=== PATIENT | female | born 1940 | race Caucasian/White ===

== ENCOUNTER → 2017-11-19 | Day surgery (SDC) | payer MEDICARE, OTHER ==
[2017-11-17 11:58] LABS: BASOPHILS # (AUTO) 0.1 (0.0-0.1); BASOPHILS % 1.7 % (0.0-1.0); EOSINOPHILS # (AUTO) 0.1 (0.0-0.4); EOSINOPHILS % 1.7 % (0.0-6.0); HEMATOCRIT 43.7 % (34.2-44.1); HEMOGLOBIN 14.3 g/dL (12.0-16.0); LYMPHOCYTES # (AUTO) 2.2 (1.0-3.2); LYMPHOCYTES % 37.4 % (18.0-39.1); MEAN CORPUSCULAR HEMOGLOBIN 30.8 pg (28-32); MEAN CORPUSCULAR HGB CONC 32.7 g/dL (31-35); MEAN CORPUSCULAR VOLUME 94.2 fL (81-99); MONOCYTES # (AUTO) 0.7 (0.2-0.8); MONOCYTES % 12.3 % (4.4-11.3); NEUTROPHILS # (AUTO) 2.7 (2.1-6.9); NEUTROPHILS % 46.7 % (38.7-80.0); PLATELET COUNT 214 x10e3/uL (140-360); RED BLOOD COUNT 4.64 x10e6/uL (3.6-5.1); RED CELL DISTRIBUTION WIDTH 12.5 % (11.7-14.4)
--- NOTE | 2017-11-17 13:14 | Diagnostic Imaging Report ---
PROCEDURE: X-RAY CHEST, TWO VIEWS COMPARISON: Chest x-ray 05/15/16 INDICATIONS: PRE-OPERATIVE CHEST X-RAY TO REMOVE SYMPTOMATIC HARDWARE FINDINGS: LUNGS: Diffusely hyperinflated consistent with COPD. No mass or infiltrate. PLEURA: No effusions or pneumothorax. HEART \T\ MEDIASTINUM: No cardiomegaly. Calcifications of the aortic arch are stable. BONES \T\ SOFT TISSUES: Diffusely demineralized. No focal osseous or soft tissue abnormalities. CONCLUSION: Stable chest. No active disease. Dictated by: Maryuri Logan M.D. on 11/17/2017 at 13:24 Electronically approved by: Maryuri Logan M.D. on 11/17/2017 at 13:24
[~2017-11-19] MED LIST: BENTYL10 MG PO; CLARITIN10 MG PO; CLINDAMYCIN PHOS 900MG/ D5W 50 50 ML IV ONE; DEXAMETHASONE SOD PHOS INJ 4 MG/ML VIAL ONE; EPHEDRINE SULFATE INJ 50 MG/10 ML SYR ONE; FENTANYL CITRATE/PF 100MCG/2 ML INJ ONE; GABAPENTIN100 MG PO; LIDOCAINE HCL 2% LOCAL INJ 5 ML SDV VIAL INJ ONE; LISINOPRIL PO; LISINOPRIL10 MG PO; LISINOPRIL5 MG PO; NORCO 5-325 TA1 EACH PO; NORVASC5 MG PO; ONDANSETRON HCL INJ 2 MG/ML VIAL ONE; PAXIL PO; PAXIL10 MG PO; PROPOFOL IV EMULSION 10 MG/ML 20 ML VIAL ONE; SEVOFLURANE INHAL SOLN 250 ML PEN BTL ONE; SYNTHROID50 MCG PO; TIZANIDINE HCL4 M1 PO
--- OUTSIDE RECORDS SUMMARY | 2017-11-19 07:26 | XMS REPORT ---
Author Author [facility] Address Unknown Phone Unavailable Care Team Providers Care Note Specialist Name Role Phone IRINA ROMANO Unavailable Unavailable JAROD WOLF Unavailable Unavailable Problems This patient has no known problems. Allergies, Adverse Reactions, Alerts This patient has no known allergies or adverse reactions. Medications This patient has no known medications. Results Test Description Test Time Test Comments Text Results Atomic Results Result Comments CHEST 2 VIEWS [place] [address] Patient Name: GEOVANNA HERNANDEZ MR #: [id number] : 1940 Age/Sex: 77/F Req #: [id number] [facility] Physician: Ordered by: IRINA ROMANO MD Report #: [id number] Location: OR Room/Bed: Procedure: [id number] DX/CHEST 2 VIEWS Exam Date: 11/17/17 Exam Time: 1205 REPORT STATUS: Signed PROCEDURE: X-RAY CHEST, TWO VIEWS COMPARISON: Chest x-ray 05/15/16 INDICATIONS: PRE-OPERATIVE CHEST X-RAY TO REMOVE SYMPTOMATIC HARDWARE FINDINGS: LUNGS: Diffusely hyperinflated consistent with COPD. No mass or infiltrate. PLEURA: No effusions or pneumothorax. HEART T MEDIASTINUM: No cardiomegaly. Calcifications of the aortic arch are stable. BONES T SOFT TISSUES : Diffusely demineralized. No focal osseous or soft tissue abnormalities. CONCLUSION: Stable chest. No active disease. Dictated by : Maribel Logan M.D. on 11/17/2017 at 13:24 Electronically approved by : Maribel Logan M.D. on 11/17/2017 at 13:24 Dictated By: MARIBEL LOGAN MD [id number] COPY TO: IRINA ROMANO MD WRIST COMPLETE RIGHT [place] [address] Patient Name: GEOVANNA HERNANDEZ MR #: [id number] : 1940 Age/Sex: 77/F Req #: [id number] Adm Physician: JAROD WOLF MD Ordered by: IRINA ROMANO MD Report #: [id number] Location: MED/SURG Room/Bed: [facility] Procedure: [id number] DX/WRIST COMPLETE RIGHT Exam Date: 09/03/17 Exam Time: 1300 REPORT STATUS: Signed PROCEDURE: X-RAY RIGHT WRIST, COMPLETE COMPARISON: [facility], DX, WRIST COMPLETE RIGHT, 09/02/2017, 13:30. INDICATIONS: POST OP RIGHT WRIST SURGERY FINDINGS: Status post ORIF of the previously described distal radial fracture with plate and screw construct. There is also a transfixing K wire. Improved alignment. The hardware is adequate in position. Overlying plaster cast. Generalized osteopenia. CONCLUSION: Status post ORIF of the present described is the distal right radial fracture with intact hardware and improved alignment. Mat Carrera M.D. Dictated by: Mat Carrera M.D. on 09/03/2017 at 13:32 Electronically approved by: Mat Carrera M.D. on 09/03/2017 at 13:32 Dictated By: SHARLENE CARRERA MD, MD 31 COPY TO: IRINA ROMANO MD WRIST COMPLETE RIGHT [place] [address] Patient Name: GEOVANNA HERNANDEZ MR #: [id number] : 1940 Age/Sex: 77/F Req #: [id number] Adm Physician: Ordered by: MORELIA KINGSLEY Report #: [id number] Location: ER Room/Bed: Procedure: [id number] DX/WRIST COMPLETE RIGHT Exam Date: 09/02/17 Exam Time: 1340 REPORT STATUS: Signed PROCEDURE: X-RAY RIGHT WRIST, COMPLETE COMPARISON: None. INDICATIONS: FALL FINDINGS: There is buckling of the lateral cortex of the distal radial metaphysis with a volar step off along the distal radial metaphyseal cortex as seen on the lateral radiograph. No definite intra-articular extension. The ulna appears intact. Subchondral cystic changes of the scaphoid. Advanced degenerative changes throughout the carpus, most notably at the first carpometacarpal joint. Appropriate alignment between the distal radius , lunate, and capitate is maintained on the lateral radiograph. Mild soft tissue swelling. Diffuse osteopenia. CONCLUSION: Acute minimally displaced transverse distal radial metaphyseal fracture with overlying soft tissue swelling. Dictated by: Josh Collins M.D. on 09/02/2017 at 14:20 Electronically approved by: Josh Collins M.D. on 09/02/2017 at 14:20 Dictated By: JOSH COLLINS MD 19 Transcribed By: ZANDER on 09/02/171419 COPY TO: MORELIA KINGSLEY HIP RIGHT 2-3 VW (+/- PELVIS) [place] [address] Patient Name: GEOVANNA HERNANDEZ MR #: [id number] : 1940 Age/Sex: 77/F Req #: [id number] Adm Physician: Ordered by: MORELIA KINGSLEY Report #: [id number] Location: ER Room/Bed: Procedure: [id number] DX/HIP RIGHT 2-3 VW (+/- PELVIS) Exam Date: Exam Time: REPORT STATUS: Signed PROCEDURE: HIP RIGHT 2-3 VW (+/- PELVIS) COMPARISON: None. INDICATIONS: FALL FINDINGS: Intact surgical screws traverse the right intertrochanteric proximal femur, femoral neck, and femoral head. No evidence of hardware loosening or failure. Acute, minimally displaced fractures of the right superior and inferior pubic rami, adjacent to the symphysis pubis. Pubic symphysis is otherwise intact. Atherosclerotic vascular calcifications. CONCLUSION: intact surgical hardware related to operative fixation of a remote right femoral neck fracture. Acute minimally displaced fractures of the right superior and inferior pubic rami, with intact symphysis pubis. Dictated by: Josh Collins M.D. on 09/02/2017 at 14:25 Electronically approved by: Josh Collins M.D. on 09/02/2017 at 14:25 Dictated By: JOSH COLLINS MD 24 Transcribed By: ZANDER on 09/02/171424 COPY TO: MORELIA KINGSLEY
--- OUTSIDE RECORDS SUMMARY | 2017-11-19 07:26 | XMS REPORT | Clinical Summary ---
Author Author [facility] Address Unknown Phone Unavailable Care Team Providers Care Lumite Injector Name Role Phone Jeff Barker MD PCP Allergies No Known Allergies Current Medications Prescription Sig. Disp. Refills Start End Date Status Date amLODIPine (NORVASC) 5 mg Take 5 mg by mouth daily. Active tablet lisinopril Take 1 tablet (10 mg 30 tablet 0 09/26/20 Active (PRINIVIL,ZESTRIL) 10 mg total) by mouth daily for 17 tablet 30 days. acetaminophen-codeine Take 1 tablet by mouth 60 tablet 0 09/25/20 (TYLENOL WITH CODEINE #3) every 6 (six) hours as 17 18 300-30 mg per tablet needed for moderate pain for up to 29 days. levothyroxine (SYNTHROID, Take 1 tablet (25 mcg 30 tablet 0 09/26/20 10/26/19 LEVOXYL) 25 mcg tablet total) by mouth daily for 17 18 30 days. nicotine (NICODERM CQ) 14 Place 1 patch on the skin 14 patch 0 10/09/19 mg/24 hr daily for 14 days. 17 18 nicotine (NICODERM CQ) 7 Place 1 patch on the skin 7 patch 0 10/10/19 10/17/19 mg/24 hr daily for 7 days. 18 18 PARoxetine (PAXIL) 20 MG Take 1 tablet (20 mg 30 tablet 0 09/26/20 10/26/19 tablet total) by mouth daily for 17 18 30 days. zinc oxide-cod liver oil Apply topically 2 (two) 09/25/20 10/25/19 (DESITIN) 40 % paste times a day for 30 days. 17 18 Active Problems Problem Noted Date Pelvic fracture 09/17/2017 Right wrist fracture 09/16/2017 Encounters Date Type Specialty Care Team Description 11/13/2017 Telephone Physical Therapy Silvio Mckenzie MD 10/16/2017 Transcribe Physical Therapy Silvio Mckenzie MD Right wrist fracture, Orders closed, initial encounter (Primary Dx) 09/16/2017 Hospital Rehabilitation Arnulfo Banda MD Closed fracture of right - Encounter wrist with routine 09/25/2017 healing, subsequent encounter (Primary Dx) after 11/18/2016 Family History Medical History Relation Name Comments Diabetes Father Cancer Mother Relation Name Status Comments Father Mother Social History Tobacco Use Types Packs/Day Years Used Date Current Every Day Smoker Cigarettes 1 Smokeless Tobacco: Never Used Tobacco Cessation: Ready to Quit: Yes; Counseling Given: Yes Alcohol Use Drinks/Week oz/Week Comments Yes 14 Glasses of 8.4 wine Sex Assigned at Date Recorded Not on file Last Filed Vital Signs Vital Sign Reading Time Taken Blood Pressure 130/67 09/25/2017 7:07 AM TAPE MAKING MACHINE OPERATOR Pulse 67 09/25/2017 7:07 AM TAPE MAKING MACHINE OPERATOR Temperature 37.4 C (99.3 F) 09/25/2017 7:07 AM TAPE MAKING MACHINE OPERATOR Respiratory Rate 17 09/25/2017 7:07 AM TAPE MAKING MACHINE OPERATOR Oxygen Saturation 94% 09/25/2017 7:07 AM TAPE MAKING MACHINE OPERATOR Inhaled Oxygen - - Concentration Weight 47.2 kg (104 lb) 09/16/2017 3:56 PM TAPE MAKING MACHINE OPERATOR Height 162.6 cm (5' 4") 09/16/2017 3:56 PM TAPE MAKING MACHINE OPERATOR Body Mass Index 17.85 09/16/2017 3:56 PM TAPE MAKING MACHINE OPERATOR Plan of Treatment Health Maintenance Due Date Last Done Comments ZOSTER VACCINE 2001 PNEUMOCOCCAL 2006 POLYSACCHARIDE VACCINE AGE 65 AND OVER PNEUMOCOCCAL-13 2006 INFLUENZA VACCINE 05/06/2017 Results * Estimated GFR (09/24/2017 5:44 AM) Only the most recent of 4 results within the time period is included. Component Value Ref Range GFR Non Af Amer >90 mL/min/1.73 m2 GFR Af Amer >90 mL/min/1.73 m2 Comment: Chronic kidney disease: <60 mL/min/1.73m2 Kidney failure: <15 mL/min/1.73m2 The estimated GFR is calculated from the IDMS-traceable Modification of Diet in Renal Disease Equation. The accuracy of the calculation is poor when the creatinine is normal. Calculated values >90 mL/min/1.73m2 are not reported. This equation has not been validated in children (<18 years), women, the elderly (>70 years), or ethnic groups other than Caucasians and Americans. Specimen Performing Laboratory Plasma specimen [facility] DEPARTMENT OF PATHOLOGY AND GENOMIC MEDICINE [address] [place] [address] [place] [address] * CBC with platelet and differential (09/24/2017 5:44 AM) Only the most recent of 3 results within the time period is included. Component Value Ref Range WBC 2.8 (L) 4.2 - 11.0 k/uL RBC 3.69 (L) 4.04 - 5.86 m/uL HGB 11.9 11.5 - 15.3 g/dL HCT 36.0 34.0 - 45.0 % MCV 97.6 80.0 - 98.0 fL MCH 32.2 27.0 - 34.0 pg MCHC 33.1 31.5 - 36.5 g/dL RDW - SD 42.5 37.0 - 51.0 fL MPV 8.9 7.4 - 10.4 fL Platelet count 118 (L) 150 - 400 k/uL Nucleated RBC 0.00 /100 WBC Neutrophils 36.6 36.0 - 66.0 % Lymphocytes 36.6 24.0 - 44.0 % Monocytes 17.0 (H) 0.0 - 6.0 % Eosinophils 6.9 (H) 0.0 - 6.0 % Basophils 2.5 (H) 0.0 - 1.2 % Immature granulocytes 0.4 0.0 - 1.0 % Specimen Performing Laboratory Blood [facility] DEPARTMENT OF PATHOLOGY AND [place] [facility] [address] [place] [address] [place] [address] * Hepatic function panel (09/24/2017 5:44 AM) Only the most recent of 4 results within the time period is included. Component Value Ref Range Albumin 2.8 (L) 3.2 - 5.0 g/dL Total bilirubin 0.3 0.2 - 1.2 mg/dL Bilirubin direct 0.1 0.0 - 0.4 mg/dL Alkaline phosphatase 161 (H) 30 - 120 U/L Protein 7.5 6.3 - 8.2 g/dL ALT 54 30 - 65 U/L AST 43 (H) 15 - 37 U/L Specimen Performing Laboratory Plasma specimen [facility] DEPARTMENT OF PATHOLOGY AND GENOMIC MEDICINE [address] [place] [address] * Basic metabolic panel (09/24/2017 5:44 AM) Only the most recent of 4 results within the time period is included. Component Value Ref Range Sodium 134 (L) 135 - 150 mEq/L Potassium 3.8 3.5 - 5.0 mEq/L Chloride 97 (L) 100 - 109 mEq/L CO2 30 24 - 32 mmol/L Anion gap 7 7 - 15 mEq/L Comment: Starting from January , anion gap calculation no longer incorporates potassium. Please note the change. BUN 5 (L) 7 - 18 mg/dL Creatinine 0.4 (L) 0.8 - 1.5 mg/dL Glucose 72 65 - 100 mg/dL Calcium 8.7 8.6 - 10.7 mg/dL Specimen Performing Laboratory Plasma specimen [facility] DEPARTMENT OF PATHOLOGY AND GENOMIC MEDICINE [address] [place] [address] * Hepatitis acute panel (09/19/2017 5:34 AM) Component Value Ref Range Hepatitis A IgM Non-reactive Non-reactive Hepatitis B core IgM Non-reactive Non-reactive Hepatitis B surface Ag Non-reactive Non-reactive Hepatitis C Ab Non-reactive Non-reactive Specimen Performing Laboratory Serum [facility] DEPARTMENT OF PATHOLOGY AND GENOMIC MEDICINE [address] [place] [address] * T3, free (09/17/2017 5:32 AM) Component Value Ref Range T3, free 2.57 2.18 - 3.98 pmol/L Specimen Performing Laboratory Plasma specimen [facility] DEPARTMENT OF PATHOLOGY AND GENOMIC MEDICINE [address] [place] [address] * Thyroid stimulating hormone (09/17/2017 5:32 AM) Component Value Ref Range TSH 11.00 (H) 0.38 - 4.82 uIU/mL Specimen Performing Laboratory Plasma specimen [facility] DEPARTMENT OF PATHOLOGY AND GENOMIC MEDICINE [address] [place] [address] * T4, free (09/17/2017 5:32 AM) Component Value Ref Range T4, free 1.07 0.70 - 1.61 ng/dL Specimen Performing Laboratory Plasma specimen [facility] DEPARTMENT OF PATHOLOGY AND GENOMIC MEDICINE [address] [place] [address] after 11/18/2016 Insurance Payer Benefit Subscriber ID Type Phone Address Plan / Group [employer] xxxxxxxxxx Commercial [employer] MEDICARE xxxxxxxxxxx Medicare [place], [place] PART A AND B
--- NOTE | 2017-11-20 10:02 | Operative Report ---
DATE OF PROCEDURE: November 19, 2017 PREOPERATIVE DIAGNOSIS: Symptomatic hardware, right hip. POSTOPERATIVE DIAGNOSIS: Symptomatic hardware, right hip. OPERATION/PROCEDURE PERFORMED: The patient underwent a removal of symptomatic hardware from the right hip. CAR SHUNTER: Yuliya Thompson ANESTHESIA: General endotracheal intubation anesthesia. IV FLUIDS: Per anesthesia record. BRIEF DESCRIPTION OF THE PATIENT'S OPERATIVE PROCEDURE: Ms. Lockett was taken to the operating room and placed in the supine position on the fracture table. Following induction of general anesthesia, as well as endotracheal intubation, the patient's right lower extremity was examined under anesthesia. She was found to have a normal appearing right lower extremity. There was a well-healed incision over the right hip. The patient's right lower extremity was placed in a well-padded longitudinal traction, and the left lower extremity was placed in a well-padded lithotomy position. Fluoroscopic evaluation the patient's hip joint demonstrated a slightly shortened femoral neck, and 2 screws consistent with a previous pinning of a femoral neck fracture. The patient's lower extremity was prepped draped in a standard surgical fashion. An incision was created on the lateral aspect of the hip. This incision was carried through the skin only. Blunt dissection was used to deepen the incision, and the heads of the screws were found in the subcutaneous tissues beneath the tensor fascia roshni. The 2 screws were removed without difficulty. The wound was copiously irrigated. There was no sign for infection. The patient's leg was then manipulated under anesthesia, and the head was found to mobilize with the neck. The patient's wound was copiously irrigated. It was closed in a multilayer fashion. Sterile dressings were applied. The patient was then awakened and taken to the postanesthesia care unit in stable condition. Yuliya Thompson acted as pastrycook's assistant for this case, and was necessary for both prepping and draping the patient, as well as retraction of soft tissues to allow this case to be successful. Job#: [id number] KATJA
== END | disposition home or self-care (01) ==
LOC: OR 07:23
PROVIDERS: ATTEND Specialist
DX: Z45.89 Encounter for adjustment and management of other implanted devices (principal); I10 Essential (primary) hypertension; E03.9 Hypothyroidism, unspecified; F32.9 Major depressive disorder, single episode, unspecified; F17.210 Nicotine dependence, cigarettes, uncomplicated; Z01.812 Encounter for preprocedural laboratory examination; Z01.818 Encounter for other preprocedural examination
CPT/HCPCS: 20680; 36415; 71046; 76000; 85025; J1100; J2001; J2405

== ENCOUNTER 2019-01-29 11:56 | Inpatient (IN) | payer MEDICARE, OTHER ==
[~2019-01-29] VITALS: Ht 162.6 cm; Wt 44.9 kg
[~2019-01-29 11:56] MED LIST changes: -CLINDAMYCIN PHOS 900MG/ D5W 50 50 ML IV ONE; -DEXAMETHASONE SOD PHOS INJ 4 MG/ML VIAL ONE; -EPHEDRINE SULFATE INJ 50 MG/10 ML SYR ONE; -FENTANYL CITRATE/PF 100MCG/2 ML INJ ONE; -LIDOCAINE HCL 2% LOCAL INJ 5 ML SDV VIAL INJ ONE; -ONDANSETRON HCL INJ 2 MG/ML VIAL ONE; -PROPOFOL IV EMULSION 10 MG/ML 20 ML VIAL ONE; -SEVOFLURANE INHAL SOLN 250 ML PEN BTL ONE
--- OUTSIDE RECORDS SUMMARY | 2019-01-29 12:00 | XMS REPORT | Clinical Summary ---
Author Author [facility] Organization [facility] Address Unknown Phone Unavailable Care Team Providers Care Morgue Keeper Name Role Phone Asad Barker MD PCP Allergies No Known Allergies Medications End Date Status Medication Sig Dispensed Refills Start Date Active amLODIPine (NORVASC) 5 mg Take 5 mg by 0 tablet mouth daily. Active lisinopril Take 1 tablet 30 tablet 0 (PRINIVIL,ZESTRIL) 10 mg (10 mg total) 7 tablet by mouth daily for 30 days. Active Problems Problem Noted Date Pelvic fracture 09/17/2017 Right wrist fracture 09/16/2017 Family History Medical History Relation Name Comments Diabetes Father Cancer Mother Relation Name Status Comments Father Mother Social History Date Tobacco Use Types Packs/Day Years Used Current Every Day Smoker Cigarettes 1 Smokeless Tobacco: Never Used Tobacco Cessation: Ready to Quit: Yes; Counseling Given: Yes Alcohol Use Drinks/Week oz/Week Comments Yes 14 Glasses of 8.4 wine Sex Assigned at Date Recorded Not on file Industry Job Start Date Occupation Not on file Not on file Not on file Travel End Travel History Travel Start No recent travel history available. Last Filed Vital Signs Not on file Plan of Treatment Health Maintenance Due Date Last Done Comments SHINGLES VACCINES (#1) 1991 65+ PNEUMOCOCCAL VACCINE 2006 (1 of 2 - PCV13) PNEUMOCOCCAL 2006 POLYSACCHARIDE VACCINE AGE 65 AND OVER INFLUENZA VACCINE 05/06/2019 Results Not on fileafter 01/28/2018 Insurance Payer Benefit Subscriber ID Type Phone Address Plan / Group [employer] xxxxxxxxxx Commercial [employer] MEDICARE xxxxxxxxxxx Medicare [place], [place] PART A AND B Advance Directives Patient has advance care planning documents on file. For more information, raheem e contact: Jayjay De La O [address] [place] [address]
--- OUTSIDE RECORDS SUMMARY | 2019-01-29 12:00 | XMS REPORT | Clinical Summary ---
Author Author [facility] Organization [facility] Address Unknown Phone Unavailable Care Team Providers Care Ornamental Ironworker Name Role Phone Maya Urban MD PCP Allergies No Known Allergies Medications End Date Status Medication Sig Dispensed Refills Start Date Active atenolol (TENORMIN) 100 1 tablet 0 mg tablet daily. 9 Active levothyroxine (SYNTHROID) 1 tablet 0 25 mcg tablet daily. 9 Active lisinopril (PRINIVIL, 1 tablet 0 ZESTRIL) 40 mg tablet daily. 9 Active PARoxetine (PAXIL) 20 mg 1 tablet 0 tablet daily. 9 Active clindamycin (CLEOCIN) 300 Take 300 mg 0 mg capsule by mouth 4 times daily. Active acetaminophen-codeine Take 1 tablet 15 tablet 0 (TYLENOL/CODEINE #3) by mouth 3 9 300-30 mg per times daily tabletIndications: as needed for Staphylococcal infection Pain. Active mupirocin (BACTROBAN) 2 % Apply to nose 22 g 0 ointmentIndications: 2 times daily 9 Staphylococcal infection for one week. 02/06/2019 Active amoxicillin-clavulanate Take 1 tablet 20 tablet 0 (AUGMENTIN) 875-125 mg by mouth 2 9 per tabletIndications: times daily Ulcers of both lower legs for 10 days. 02/06/2019 Active ciprofloxacin HCl (CIPRO) Take 1 tablet 20 tablet 0 500 mg tabletIndications: by mouth 2 9 Ulcers of both lower legs times daily for 10 days. Active acetaminophen-codeine Take 1 tablet 60 tablet 1 (TYLENOL/CODEINE #3) by mouth 3 9 300-30 mg per times daily tabletIndications: Ulcers as needed for of both lower legs Pain. 12/28/2018 clindamycin (CLEOCIN HCL) Take 1 40 capsule 0 300 mg capsule by 9 capsuleIndications: mouth 4 times Staphylococcal infection daily for 10 days. 01/01/2019 chlorhexidine gluconate Apply 1 120 mL 0 (HIBICLENS) 4 % external Bottle to 9 liquidIndications: affected area Staphylococcal infection daily as needed for up to 14 days for Pain. 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 Office Visit Family Practice 12/18/2018 Travel after 01/28/2018 Immunizations Name Dates Previously Given Next Due Influenza, 12/18/2018 Vaccine<FLUCELVAX>(Multi- Dose) PCV 13 (Pnuemococcal 12/18/2018 Conjugated 13 Valent) Tdap (Tetanus Toxoid, 12/18/2018 (Deferred: Unavailable-Patient to Reduced Diphtheria Toxoid return for vaccine later) And Acellular Pertussis, Absorbed) Zoster Vaccine (Shingrix) 12/30/2018 (Deferred: Vaccine Unavailable) Family History Medical History Relation Name Comments Diabetes Father Cancer Mother Relation Name Status Comments Father Mother Social History Date Tobacco Use Types Packs/Day Years Used Current Every Day Smoker Cigarettes 0.5 40 Smokeless Tobacco: Never Used Tobacco Cessation: Ready to Quit: No; Counseling Given: Yes Alcohol Use Drinks/Week oz/Week Comments Yes occasionally Sex Assigned at Date Recorded Not on file Industry Job Start Date Occupation Not on file Not on file Not on file Travel End Travel History Travel Start No recent travel history available. Last Filed Vital Signs Time Taken Vital Sign Reading 01/27/2019 2:22 PM CDT Blood Pressure 162/84 01/27/2019 2:09 PM CDT Pulse 73 01/27/2019 2:09 PM CDT Temperature 36.9 C (98.5 F) 01/27/2019 2:09 PM CDT Respiratory Rate 16 - Oxygen Saturation - - Inhaled Oxygen - Concentration 01/27/2019 2:09 PM CDT Weight 44.9 kg (99 lb) 01/27/2019 2:09 PM CDT Height 163.8 cm (5' 4.5") 01/27/2019 2:09 PM CDT Body Mass Index 16.73 Plan of Treatment Care Team Description Date Type Specialty Maya Urban MD [address] [address] [phone] JAVIER 02/19/2019 Appointment Vascular Surgery Health Maintenance Due Date Last Done Comments IMM Pneumococcal Age 65 2006 and Up IMM Influenza Seasonal 07/06/2019 12/18/2018 Oct to December (>/=19 yrs) Procedures Comments Procedure Name Priority Date/Time Associated Diagnosis ABSCESS STAIN / CULTURE Routine 12/18/2018 Staphylococcal infection 11:04 AM CDT CBC/DIFF STAT 12/18/2018 History of ITP 10:52 AM CDT after 01/28/2018 Results * ABSCESS STAIN / CULTURE (12/18/2018 11:04 AM CDT) Spec Right ankle [facility] Description Order Comments None [facility] Gram Stain 1+ WBC's seen BT MICROBIOLOGY 2+ Gram positive cocci in clusters Culture 4+ Stenotrophomonas BT MICROBIOLOGY maltophilia 4+ Gr.D Enterococcus 4+ Coagulase negative Staphylococcus, no susceptibility performed Report Status Final 12/29/2018 BT MICROBIOLOGY Organism 4+ Stenotrophomonas BT MICROBIOLOGY maltophilia Method [facility] Ceftazidime 8 Susceptible BT MICROBIOLOGY Trimeth-sulfame <=0.5/9.5 Susceptible BT MICROBIOLOGY thox Levofloxacin 2 Susceptible BT MICROBIOLOGY Organism 4+ Gr.D Enterococcus BT MICROBIOLOGY Method [facility] Ampicillin 1 Susceptible BT MICROBIOLOGY Vancomycin 1 Susceptible BT MICROBIOLOGY Gentamicin <=500 Susceptible [facility] Synergy Streptomycin >1000 Resistant BT MICROBIOLOGY Synergy Tetracycline >8 Resistant BT MICROBIOLOGY Specimen Wound abscess - ANKLE RIGHT Performing Organization Address City/State/Zipcode Phone Number [facility]CRO[facility] * CBC/DIFF (12/18/2018 10:52 AM CDT) WBC 4.5 4.5 - 11.0 K/uL [facility] RBC 4.55 4.20 - 5.40 M/uL [facility] Hemoglobin 14.7 12.0 - 16.0 g/dL [facility] Hematocrit 44.2 37.0 - 47.0 % [facility] MCV 97 (H) 82 - 92 fL [facility] MCH 32.3 (H) 27.0 - 32.0 pg [facility] MCHC 33.3 32.0 - 36.0 g/dL [facility] RDW 45.9 36.4 - 46.3 fL [facility] Platelet 177 150 - 400 K/uL [facility] Neutrophil 45.6 34.0 - 70.0 % [facility] Lymphocyte 34.7 20.0 - 50.0 % [facility] Monocyte 15.9 (H) 5.0 - 12.0 % [facility] Eosinophil 1.8 0.7 - 5.0 % [facility] Basophil 2.0 (H) 0.1 - 1.2 % [facility] Neutrophil, Abs 2.06 1.56 - 6.13 K/uL [facility] Lymphocyte, Abs 1.57 1.18 - 3.74 K/uL [facility] Monocyte, Abs 0.72 (H) 0.24 - 0.36 K/uL [facility] Eosinophil, Abs 0.08 0.04 - 0.36 K/uL [facility] Basophil, Abs 0.09 (H) 0.01 - 0.08 K/uL [facility] Specimen Blood Performing Organization Address City/State/Zipcode Phone Number [facility] after 01/28/2018 Insurance Type Payer Benefit Subscriber ID Effective Phone Address Plan / Dates Group [employer] HMO [employer] xxxxxxxxx 2018-P [phone] [address] [address] [place] [address]
[2019-01-29] MEDS ORDERED: ONDANSETRON HCL INJ 2MG/ML 2ML 2 MG/ML VIAL IV STA (12:20)
[2019-01-29] MEDS ORDERED: SODIUM CHLORIDE 0.9% 1000ML 1,000 ML IV STA (12:20)
[2019-01-29] MEDS ORDERED: VANCOMYCIN 1GM/NS 250 ML 250 ML IV ONE (12:30)
[2019-01-29] MEDS ORDERED: ASPIRIN 81 MG CHEW TAB PO ONE (12:30)
[2019-01-29] MEDS ORDERED: PIPER-TAZ 3.375 GM 50 ML IV ONE (12:30)
--- NOTE | 2019-01-29 12:33 | NUR ---
H&P cc: infection of legs HPI: 78yoF, PCP , developed infection of left leg, given amoxicillin in outpt setting, but persistent symptoms, here for mgmt. Pt states started in December after spider bite; SHe continues to smoke 1ppd cigs; had 2 separate rounds of oral antibiotics, consisting of bactrim and other antibiotics. PMH: pelvic fx, right radial fx; HTN, ITP, cigarette use, mood d/o PShx: right hip Allergies see emr Fh/Sh; Meds; see MAR ROS:no cp/sob/f/c/s/N/V/D/MONIQUE/vision changes/back pain/MONIQUE v/s; rev'd PE: tired appearing anicteric ns1s2 mod bs soft nt nd LEFT LOWER FORELEG WITH 4 DISCRETE ULCERS RANGING FROM 1 INCH TO 2 OR 3 INCHES; NO ODOR; DP 1+ B/L; ext minimally cool; skin dry flat affect a&ox3; solomon labs/med; rev'd A/P: 78yoF Cellulitis of left foreleg Left leg Ulcers Cig use HTN urgency Underweight state BMI 17 ITP Mood d/o Hypothyroidism Neuropathy PLAN 1.f/u labs 2.prealbumin level 3.IV abx 4.Consult wound care- 5.Consult Cardio for vascular w-up 6.Told pt it is critical to quit cigs now; start nicotine patch Prop: pepcid; DVT prop pending labs Dispo; f/u labs; f/u consults; Pop Kamara MD, PhD.
[2019-01-29] MEDS ORDERED: SODIUM CHLORIDE 0.9% 1000ML 1,000 ML IV ONE (12:45)
[2019-01-29] MEDS ORDERED: MORPHINE SULFATE 2 MG/ML SYR 1ML IV PRN (12:45)
--- NOTE | 2019-01-29 13:12 | NUR ---
DR MARTINEZ IN ROOM WITH PT
[2019-01-29] MEDS ORDERED: MORPHINE SULFATE INJ 4 MG/ML INJ 1ML IV PRN (13:15)
--- OUTSIDE RECORDS SUMMARY | 2019-01-29 13:27 | XMS REPORT | Clinical Summary ---
Author Author [facility] Organization [facility] Address Unknown Phone Unavailable Care Team Providers Care Sales Porter Name Role Phone Asad Barker MD PCP [...] xxxxxxxxxx Commercial [employer] MEDICARE xxxxxxxxxxx Medicare [place], [place] PART A AND B Advance Directives Patient has advance care planning documents on file. For more information, raheem e contact: Jayjay De La O [address] [place] [address]
--- OUTSIDE RECORDS SUMMARY | 2019-01-29 13:27 | XMS REPORT | Clinical Summary ---
Author Author [facility] Organization [facility] Address Unknown Phone Unavailable Care Team Providers Care Title I Assistant Name Role Phone Maya Urban MD PCP [...] Date Type Specialty Maya Urban MD [address] [address] [phone] JAVIER 02/19/2019 Appointment Vascular Surgery Health Maintenance [...] (12/18/2018 11:04 AM CDT) Spec Right ankle [facility] Description Order Comments None [facility] Gram Stain 1+ WBC's seen BT [...] Performing Organization Address City/State/Zipcode Phone Number [facility] BT MICROBIOLOGY * CBC/DIFF (12/18/2018 10:52 AM CDT) WBC 4.5 4.5 - 11.0 K/uL [facility] RBC 4.55 4.20 - 5.40 M/uL [facility] Hemoglobin 14.7 12.0 - 16.0 g/dL [facility] Hematocrit 44.2 37.0 - 47.0 % [facility] MCV 97 (H) 82 - 92 fL [facility] MCH 32.3 (H) 27.0 - 32.0 pg [facility] MCHC 33.3 32.0 - 36.0 g/dL [facility] RDW 45.9 36.4 - 46.3 fL [facility] Platelet 177 150 - 400 K/uL [facility] Neutrophil 45.6 34.0 - 70.0 % [facility] Lymphocyte 34.7 20.0 - 50.0 % [facility] Monocyte 15.9 (H) 5.0 - 12.0 % [facility] Eosinophil 1.8 0.7 - 5.0 % [facility] Basophil 2.0 (H) 0.1 - 1.2 % [facility] Neutrophil, Abs 2.06 1.56 - 6.13 K/uL [facility] Lymphocyte, Abs 1.57 1.18 - 3.74 K/uL [facility] Monocyte, Abs 0.72 (H) 0.24 - 0.36 K/uL [facility] Eosinophil, Abs 0.08 0.04 - 0.36 K/uL [facility] Basophil, Abs 0.09 (H) 0.01 - 0.08 K/uL [facility] Specimen Blood Performing Organization Address City/State/Zipcode Phone Number [facility] after 01/28/2018 Insurance Type Payer Benefit Subscriber ID Effective Phone Address Plan / Dates Group [employer] HMO [employer] xxxxxxxxx 2018-P [phone] [address] [address] [place] [address]
[2019-01-29 13:38] LABS: BASOPHILS # (AUTO) 0.1 (0.0-0.1); BASOPHILS % 1.1 % (0.0-1.0); EOSINOPHILS # (AUTO) 0.1 (0.0-0.4); EOSINOPHILS % 1.8 % (0.0-6.0); HEMATOCRIT 42.5 % (34.2-44.1); HEMOGLOBIN 14.6 g/dL (12.0-16.0); LYMPHOCYTES # (AUTO) 1.3 (1.0-3.2); LYMPHOCYTES % 20.9 % (18.0-39.1); MEAN CORPUSCULAR HEMOGLOBIN 32.8 pg (28-32); MEAN CORPUSCULAR HGB CONC 34.4 g/dL (31-35); MEAN CORPUSCULAR VOLUME 95.5 fL (81-99); MONOCYTES % 15.6 % (4.4-11.3); NEUTROPHILS # (AUTO) 3.7 (2.1-6.9); NEUTROPHILS % 60.3 % (38.7-80.0); PLATELET COUNT 204 x10e3/uL (140-360); RED BLOOD COUNT 4.45 x10e6/uL (3.6-5.1); RED CELL DISTRIBUTION WIDTH 13.3 % (11.7-14.4)
--- NOTE | 2019-01-29 13:40 | Diagnostic Imaging Report ---
EXAM: CHEST SINGLE (PORTABLE), AP Portable DATE: 01/29/2019 Time stamp on exam: 12:36 PM INDICATION: Lower extremity cellulitis and ulcers COMPARISON: None FINDINGS: LINES/TUBES: None LUNGS: No consolidations or edema. Lungs are hyperexpanded. Possible right upper lobe pulmonary nodule. CT scan recommended for further evaluation. PLEURA: No effusions or pneumothorax. HEART AND MEDIASTINUM: Normal size and contour. BONES AND SOFT TISSUES: Old right-sided rib fractures. IMPRESSION: Hyperexpansion lung castillo with likely a solitary pulmonary nodule in the right upper lobe. Signed by: Dr. Rell Ireland DO on 01/29/2019 1:36 PM
--- NOTE | 2019-01-29 13:44 | Diagnostic Imaging Report ---
Exam: Left leg 2 views History: Pain Comparison: None. Findings: No fracture or malalignment. Joint spaces preserved. Vascular calcifications. Soft tissue irregularity along the lateral aspect. Impression: No acute osseous abnormality or radiographic osteomyelitis Soft tissue irregularity lateral aspect of the mid to lower calf Soft tissue edema Signed by: Dr. Wale Quijano M.D. on 01/29/2019 1:41 PM
[2019-01-29 13:47] LABS: CLARITY,URINE CLEAR (CLEAR); COLOR,URINE YELLOW (YELLOW)
[2019-01-29 13:48] LABS: BILIRUBIN,URINE NEGATIVE (NEGATIVE); KETONES,URINE NEGATIVE (NEGATIVE); LEUKOCYTE ESTERASE ,URINE NEGATIVE (NEGATIVE); NITRITE,URINE NEGATIVE (NEGATIVE); PROTEIN,URINE DIPSTICK NEGATIVE (NEGATIVE); URINE UROBILINOGEN 0.2 mg/dL (0.2 - 1)
[2019-01-29 13:50] VITALS: BP 141/67
[2019-01-29 13:50] LABS: INR 0.91; PROTHROMBIN TIME 12.7 seconds (11.9-14.5)
[2019-01-29 13:51] LABS: PARTIAL THROMBOPLASTIN TIME 31.4 seconds (23.8-35.5)
[2019-01-29 13:56] LABS: EPITHELIAL CELLS,URINE FEW /LPF; RBC,URINE 0-5 /HPF (0-5)
[2019-01-29 13:57] LABS: ALANINE AMINOTRANSFERASE 17 IU/L (0-55); ALBUMIN/GLOBULIN RATIO 0.6 (0.8-2.0); ALKALINE PHOSPHATASE 114 IU/L (40-150); ANION GAP 13.3 mmol/L (8-16); BLOOD UREA NITROGEN 8 mg/dL (7-26); BUN/CREATININE RATIO 14 (6-25); CALCIUM 9.1 mg/dL (8.4-10.2); CARBON DIOXIDE 29 mmol/L (22-29); CHLORIDE 93 mmol/L (98-107); CREATINE KINASE 44 IU/L (29-168); CREATININE, SERUM 0.59 mg/dL (0.57-1.11); EST GLOMERULAR FILTRATION RATE > 60 ML/MIN (60-); GLUCOSE 81 mg/dL (74-118); MAGNESIUM 1.9 MG/DL (1.3-2.1); POTASSIUM 4.3 mmol/L (3.5-5.1); SODIUM 131 mmol/L (136-145)
--- NOTE | 2019-01-29 14:08 | NUR ---
PER DR. MELLO ORDER DILAUDID 0.5 MG IV Q4H PRN FOR PAIN; ORDERS READ BACK AND CONFIRMED
[2019-01-29] MEDS ORDERED: HYDROMORPHONE 1MG/1ML INJ IV PRN ×2 (14:15→15:15)
[2019-01-29] MEDS ORDERED: HYDROMORPHONE 2MG/ML 2 MG/ML ML IV PRN ×3 (14:30→15:30)
[2019-01-29] MEDS ORDERED: VANCOMYCIN 750MG/NS 150ML IVPB 150 ML IV SCH (15:15)
[2019-01-29 16:00] VITALS: BP 141/67
--- NOTE | 2019-01-29 16:00 | NUR ---
Pt received from ER via stretcher. Alert and oriented x4 with four wounds noted to left lower leg. Betadine wet to dry, ABD pad, and Kerlix applied. Oriented to staff and surrounding, and encouraged to press call vences if help needed. Emotional support given. All meds given as ordered. Will monitor
[2019-01-29] MEDS: GABAPENTIN 100 MG CAP PO SCH ×2 (17:47→21:07)
[2019-01-29] MEDS: ONDANSETRON HCL INJ 2MG/ML 2ML 2 MG/ML VIAL IV PRN (17:47)
--- NOTE | 2019-01-29 19:00 | NUR ---
Received patient from day nurse, patient is alert and oriented, introduced self to patient and patient educated on the importance of calling for help, patient verbalized understanding. safety and fall precautions maintained as per hospital protocol: bed in lowest position and locked, needed items beside bed and call vences placed close to patient, patient instructed to use it to call nurses for any assistance needed, patient verbalized understanding.
[2019-01-29 20:00] VITALS: BP 123/56
[2019-01-29] MEDS: NICOTINE 21 MG/EA PATCH TOP PRN (21:00)
[2019-01-29] MEDS: PIPERACILLIN/TAZO 2.25 GM 50 ML IV SCH (21:00)
--- NOTE | 2019-01-29 21:31 | Consultation ---
DATE OF CONSULTATION: 01/29/2019 Cardiology Consultation. REASON FOR CONSULTATION: Progressive ulceration and nonhealing wounds of the left lower extremity. HISTORY OF PRESENT ILLNESS: Ms. Lockett is a 78-year-old female with past medical history of hypertension, COPD, smoker, history of ITP diagnosed seven years ago with last platelet count in the 170s range, followed by Dr. Dallas as well as anxiety. The patient reports that she is having progressively enlarging ulcerations over the left lateral aspect of the anterior banegas region with development of new satellite lesions going anteriorly on the banegas. She reports that the ulcerations have been progressively enlarging and now is the size of 3-4 cm in maximal diameter with breakdown to the fat layer. The patient denies any fevers or chills. She reports that these lesions are painful for her and has been applying some skin solution for them. She saw who gave her amoxicillin and decided to come in today as there is now significant weepiness. The patient denies any history of known coronary artery disease or peripheral vascular disease. Again, she is a smoker, almost a pack per day for many years and is severely underweight. She has very visible spider veins in her legs, but denies any issues of DVT or previous ulcerations. Cardiology was consulted for evaluation. PAST MEDICAL HISTORY: 1. Hypertension, essential. 2. COPD, smoker. 3. ITP diagnosed 7 years ago. 4. 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 PAST SURGICAL HISTORY: 1. History of right forearm plating surgery from trauma. 2. History of left hip operation. FAMILY HISTORY: Mother and father are both . The patient reports family history of coronary artery disease in her extended family. SOCIAL HISTORY: She is a one [id number] smoker. Denies any alcohol or illicit drug use. ALLERGIES: NO KNOWN DRUG ALLERGIES. HOME MEDICATIONS: Include Norvasc 5 mg daily, gabapentin 100 mg t.i.d., [place] 5/325 mg t.i.d. p.r.n., Synthroid 25 mcg daily, lisinopril 10 mg daily, Paxil 10 mg daily, tizanidine 4 mg daily. REVIEW OF SYSTEMS: GENERAL: Denies any fevers, chills, and weight changes. HEENT: No headaches, visual complaints, sore throat or stuffy nose. RESPIRATORY: Denies any wheezing. Has occasional nonproductive cough and exertional dyspnea compatible with class III symptoms. CARDIOVASCULAR: Denies any chest pain or discomfort. Denies any orthopnea or PND. Has occasional palpitations. No syncope or near syncope. GI: Denies any abdominal pain, bright red blood per rectum, melena, hematemesis. HEMATOLOGY: Positive very easy bleeding and bruising. : Denies any pyuria or dysuria or change in urinary frequency. MUSCULOSKELETAL: Positive for some arthritic type pains, hip pain and pain in her legs. SKIN: Positive for ulcerations as above. NEUROLOGIC: Does have some tingling in her feet. Denies any TIA or stroke-like symptoms. ENDOCRINE: Denies any heat or cold intolerance. Remainder review of systems negative other than those mentioned. PHYSICAL EXAMINATION: VITAL SIGNS: Height is 5 feet 4 inches, weight of 99 pounds, BMI of 17, temperature 98.6, pulse 78, respiratory rate of 18, O2 saturation 98% on room air. Blood pressure is 135/80. GENERAL: This is a very skinny, frail-appearing lady, who is currently in no apparent distress. HEENT: Normocephalic, atraumatic. Pupils equal, and reactive. Extraocular movements are intact. Oropharynx is clear. NECK: No elevation of jugular venous pulsation. There is a faint right carotid bruits. CARDIOVASCULAR: Regular rate and rhythm. Normal S1, S2. Soft 2/6 systolic murmur in the left upper sternal border. LUNGS: Diminished air entry and COPD type changes. ABDOMEN: Skinny and scaphoid, nontender, normoactive bowel sounds. No hepatosplenomegaly. BACK: No costovertebral angle tenderness. EXTREMITIES: Warm with 2+ bilateral femoral pulses, surprisingly 2+ pedal pulses bilateral and seemingly symmetric. There is skin noted for large ulcerations in her left anterior banegas, left lateral mid calf region with breakdown to the fat layer. NEUROLOGIC: Cranial nerves 2 through 12 are intact. Strength is 5/5, grossly nonfocal. PSYCH: Little bit of anxiety. LABS: Pending. EKG reveals normal sinus rhythm, normal axis and no ST-T wave changes concerning for ischemia. DIAGNOSES: 1. Progressively enlarging nonhealing ulcerations of the left lower extremity. 2. Questionable peripheral artery disease. 3. Chronic obstructive pulmonary disease, smoker. 4. Hypertension. 5. Hypercholesterolemia. 6. History of ITP and reported to have very easy bleeding per patient. PLAN/RECOMMENDATIONS: 1. We had extensive discussion with the patient in terms of the differential diagnoses. This is a rather atypical location for such peripheral vascular disease. There may be some microcirculatory issues, perhaps inflammatory vasculitic type problems and definitely smoking is not helping. 2. We offered to take the patient straight from the ER to the cardiac catheterization laboratory for definitive ischemic evaluation and the patient is absolutely against undergoing any procedure as she has her bleeding issue and is adamantly against taking any sort of antiplatelet therapy and will not consent to aspirin or Plavix therapy. 3. We will appreciate wound care consult and they have been counseled to see this patient. 4. In the meantime, we will check arterial duplex to evaluate her state of arterial circulation. 5. We will continue to follow this patient. MD TASHA Scott/MODL /[id number]
[2019-01-29] MEDS ORDERED: IOPAMIDOL 370 MG/ML 200 ML INFUS..BTL INJ ONE (21:47)
[2019-01-29] MEDS ORDERED: SODIUM CHLORIDE 0.9% 50ML 50 ML ONE (21:47)
--- NOTE | 2019-01-29 22:22 | Consultation ---
DATE OF CONSULTATION: Wound Consultation. Thank you Dr. Kamara for asking us to see this patient. HISTORY OF PRESENT ILLNESS: A 78-year-old female patient lifelong smoker and developed ulcer to the left lateral leg and multiple wounds nonhealing for more than two and a half months, came to the ER. The patient has cellulitis involving the left leg and she has poor pulse suspect PVD ulceration. The patient is admitted for treatment of infection and workup for PVD. PAST MEDICAL HISTORY: Hypothyroidism. MEDICATIONS: Gabapentin 100 mg t.i.d., levothyroxine 25 mcg daily, amlodipine 5 mg daily, and Paxil 10 mg daily. PERSONAL HISTORY: Lifelong smoking. PHYSICAL EXAMINATION: GENERAL EXAMINATION: Height 64 inches, weight 99 pounds. HEENT EXAM: Normal. NECK EXAM: No JVD. LUNGS: Bilateral air entry normal. ABDOMEN: Soft. Bowel sounds normal. EXTREMITIES: Left leg, the patient has multiple wounds. In lateral area, the patient has two ulcers, each measuring approximately 4 x 4 x 0.3 cm, scant seropurulent drainage present 100% slough. On the right lateral leg, the patient has a wound. LABORATORY DATA: The patient had a chest x-ray showed a solitary pulmonary nodule in the right upper lobe. CT recommended. ASSESSMENT: Ulcer to the left leg from peripheral vascular disease. Chest x-ray evidence of solitary pulmonary nodule, history of hypertension and hypothyroidism. PLAN: We will clean the wound with normal saline. Apply Santyl, Hydrogel, Mepilex. Workup for PVD and nicotine patch 14 mg daily and consider CT chest for pulmonary nodule. Thank you Dr. Kamara for asking us to see this patient. MD PARAG Rooney/MODL /[id number]
[2019-01-30] VITALS (7 sets, daily range): BP systolic 136–170; BP diastolic 63–87
[2019-01-30] MEDS: VANCOMYCIN 750MG/NS 150ML IVPB 150 ML IV SCH ×2 (02:27→13:17)
[2019-01-30] MEDS: HYDROMORPHONE 2MG/ML 2 MG/ML ML IV PRN ×3 (04:05→16:54)
--- NOTE | 2019-01-30 04:42 | Diagnostic Imaging Report ---
EXAM: CT Chest WITH contrast 01/29/2019 5:55 PM INDICATION: Pneumonia. COMPARISON: None TECHNIQUE: Chest was scanned utilizing a multidetector helical scanner from the lung apex through the level of the adrenal glands without administration of IV contrast. Coronal and sagittal reformations were obtained. Routine protocol was performed. IV CONTRAST: 100 cc Isovue 300 RADIATION DOSE: Total DLP: 268.95 mGy*cm Estimated effective dose: (DLP x 0.014 x size factor) mSv COMPLICATIONS: None FINDINGS: LINES/ TUBES: None. LUNGS AND AIRWAYS: Bilateral moderate upper lobe emphysematous changes right greater than left. Biapical pleural-parenchymal scarring. PLEURA: The pleural spaces are clear. HEART AND MEDIASTINUM: The thyroid gland is normal. No mediastinal, hilar or axillary lymphadenopathy. The heart is normal in size.. There is no pericardial effusion. There are moderate atherosclerotic calcifications in the aorta and coronary arteries. UPPER ABDOMEN: Limited non-contrast views of the upper abdomen show a 4 mm nonobstructing calculus in the interpolar region of the right kidney on image 120. Atherosclerotic calcifications of the visualized abdominal aorta. Small dystrophic hepatic calcification. The adrenal glands are normal. BONES: Subacute to chronic right sided rib fractures. Mild compression deformity of T12 of uncertain age. SOFT TISSUES: Unremarkable. IMPRESSION: 1. No evidence of pneumonia as per clinical query. 2. Bilateral upper lobe emphysema. Signed by: Dr. Mat Watkins M.D. on 01/30/2019 4:39 AM
[2019-01-30] MEDS: LEVOTHYROXINE SODIUM 25 MCG TABLET PO SCH (05:34)
[2019-01-30] MEDS: PIPERACILLIN/TAZO 2.25 GM 50 ML IV SCH ×3 (05:34→22:00)
[2019-01-30 05:50] LABS: BASOPHILS # (AUTO) 0.1 (0.0-0.1); BASOPHILS % 1.7 % (0.0-1.0); EOSINOPHILS # (AUTO) 0.1 (0.0-0.4); EOSINOPHILS % 2.5 % (0.0-6.0); HEMATOCRIT 39.5 % (34.2-44.1); HEMOGLOBIN 12.8 g/dL (12.0-16.0); LYMPHOCYTES % 19.8 % (18.0-39.1); MEAN CORPUSCULAR HEMOGLOBIN 32.7 pg (28-32); MEAN CORPUSCULAR HGB CONC 32.4 g/dL (31-35); MONOCYTES # (AUTO) 0.8 (0.2-0.8); NEUTROPHILS # (AUTO) 3.2 (2.1-6.9); NEUTROPHILS % 60.6 % (38.7-80.0); PLATELET COUNT 152 x10e3/uL (140-360); RED BLOOD COUNT 3.91 x10e6/uL (3.6-5.1); RED CELL DISTRIBUTION WIDTH 13.6 % (11.7-14.4)
[2019-01-30 06:09] LABS: ANION GAP 10.4 mmol/L (8-16); BLOOD UREA NITROGEN 6 mg/dL (7-26); BUN/CREATININE RATIO 10 (6-25); CALCIUM 8.2 mg/dL (8.4-10.2); CARBON DIOXIDE 28 mmol/L (22-29); CHLORIDE 101 mmol/L (98-107); CREATININE, SERUM 0.58 mg/dL (0.57-1.11); EST GLOMERULAR FILTRATION RATE > 60 ML/MIN (60-); GLUCOSE 87 mg/dL (74-118); MAGNESIUM 1.8 MG/DL (1.3-2.1); POTASSIUM 4.4 mmol/L (3.5-5.1); SODIUM 135 mmol/L (136-145)
[2019-01-30] MEDS ORDERED: LEVOTHYROXINE SODIUM 50 MCG TAB PO SCH (06:30)
--- NOTE | 2019-01-30 07:04 | NUR ---
patient endorsed to next shift for continuity of care.
[2019-01-30] MEDS: PAROXETINE HCL 20 MG TAB PO SCH (08:17)
[2019-01-30] MEDS: GABAPENTIN 100 MG CAP PO SCH ×3 (08:17→22:00)
[2019-01-30] MEDS: AMLODIPINE BESYLATE 5 MG TAB PO SCH (08:17)
[2019-01-30] MEDS: ASPIRIN 81 MG ENTERIC COATED PO SCH (08:17)
--- NOTE | 2019-01-30 08:17 | NUR ---
Pt received resting in bed. Alert and oriented x4. Dressing change to left lower leg done. Oriented to staff and surrounding, and encouraged to press call vences if help needed. Emotional support given. All meds given as ordered. Will monitor
[2019-01-30] MEDS ORDERED: NICOTINE 14 MG/EA PATCH TOP SCH (09:00)
[2019-01-30] MEDS ORDERED: PAROXETINE HCL 10 MG PO SCH (09:00)
[2019-01-30] MEDS: COLLAGENASE 5 GM TUBE TOP SCH (09:30)
--- NOTE | 2019-01-30 13:09 | NUR ---
Nutrition Intervention Note RD Recommendation(s) for Physician: Continue diet as ordered Plan of Care: RD following, monitoring for tolerance and adequacy Nutrition reason for involvement: Nutrition Risk Trigger - BMI 17 RD Assessment Initial encounter with patient. Pt states that she is not a big eater and typically eats breakfast and lunch only. Pt goes to bed early around 5pm and does not want to eat before sleeping. Pt states that she has struggled to gain wt since a pelvic fx. Pt has a UBW of 110 - 115 pounds and has weighed as much as 119 pounds Pt has had a gradual wt loss since 2013. Pt states that she does walk 3-4 miles a day, daily tobacco use, and is currently on levothyroxine which she states decreases her appetite. Levothyroxine does decrease appetite and can cause wt loss. Offered Pt Ensure Enlive, but Pt refused due to limited acceptance. Although Pt is thin with a BMI of 17, and has had wt loss, the pt is probably not malnourished. Pt denies any chewing or swallowing difficulty. Pt wears dentures. Pt avoids beef and pork and prefers to eat chicken or fish. Pt denies nausea, vomiting or diarrhea. Principal Problems/Diagnoses: Cellulitis, PAD, stasis leg ulcer PMH: hypercholesterolemia, right Hip fx, HTN, COPD IVF: IV ABX GI: Soft non tender Skin: Cellulitis of left lower extremity Labs: (01/30/19) lab results reviewed Meds: (01/30/19) Levothyroxine Malnutrition Evaluation (01/30) The patient does not meet criteria for a specified degree of malnutrition at this time. Will re-evaluate at follow-up as appropriate. Diet Education Needs Assessment: Diet education not indicated. Ht:64 Wt:99lbs BMI:17kg/m2 IBW:120 lbs Estimated Nutritional Needs: 1350 - 1575 kcals at 30-35 kcals/kg/bw 45-90g of protein at 1-2g/kg/bw Nutrition Prescription (Diet Order): Cardiac diet Food Allergies: No known food allergies Diet Adequacy: Meeting calorie needs, Meeting protein needs, Meeting fluid needs. Tolerance: Tolerating PO Nutrition Care Level: Low Nutrition Diagnosis: Increased nutrient needs(protein/energy) related to increased demand as evidenced by cellulitis/stasis ulcer Goal:Patient will meet 75-100% of estimated needs by follow up Progress: Progressing Interventions: General healthful diet Monitoring/Evaluation: -Total energy intake, Total protein intake, Weight change Noe Tellez RD, NICOLAS, CNSC
--- NOTE | 2019-01-30 13:52 | NUR ---
SOCIAL WORK INITIAL ASSESSMENT Hydrography Teacher to bedside to discuss plan of care with patient/family. CM/SW role and care transitions discussed. Anticipated discharge plan discussed along with duration of care. CM/SW discussed patients right to make decisions in care. CM/SW work hours given. Patient lives: IN HOUSE WITH 2 FRIENDS Admit/Transfer: VIA ED POA/Emergency contact: HITESH WHITFIELD Current/Previous Home Health:HAVING A HARD TIME GETTING WOUND CARE SET UP DUE TO NO ONE IN NETWORK PCP/Follow-up Care: [facility] Current/Previous DME: NONE Other Services: WOUND CARE Employment Status: GIS ENGINEER Areas of Concerns: FINDING IN NETWORK WOUND CARE Referral Needs: WOUND CARE Education Needs: NONE IMM/GARSIA given and signed (if applicable): NA Goal for discharge:RETURN HOME CM/SW left business card at the bedside with contact information. Name and number was also written on the patients whiteboard. Patient verbalized understanding of discussion. CM will follow-up with ongoing discharge and transition of care needs.
[2019-01-30] MEDS ORDERED: VANCOMYCIN 750MG/NS 150ML IVPB 150 ML IV SCH (14:00)
--- NOTE | 2019-01-30 15:47 | NUR ---
IM- progress note O/N: no events ROS:no cp/sob/f/c/s/N/V/D/MONIQUE/vision changes/back pain/MONIQUE v/s; rev'd PE: tired appearing anicteric ns1s2 mod bs soft nt nd LEFT LOWER FORELEG WITH 4 DISCRETE ULCERS RANGING FROM 1 INCH TO 2 OR 3 INCHES; NO ODOR; DP 1+ B/L; ext minimally cool; skin dry flat affect a&ox3; solomon labs/med; rev'd A/P: 78yoF Cellulitis of left foreleg Left leg Ulcers Cig use HTN urgency Underweight state BMI 17 ITP Mood d/o Hypothyroidism Neuropathy PLAN 1.f/u labs 2.prealbumin level 3.IV abx 4.Consult wound care- 5.Consult Cardio for vascular w-up 6.Told pt it is critical to quit cigs now; start nicotine patch Prop: pepcid; DVT prop pending labs Dispo; f/u labs; f/u consults; 01/30 vasculitis w-up. Pop Kamara MD, PhD.
[2019-01-30] MEDS: ONDANSETRON HCL INJ 2MG/ML 2ML 2 MG/ML VIAL IV PRN (16:54)
[2019-01-30] MEDS: NICOTINE 21 MG/EA PATCH TOP PRN (18:02)
--- NOTE | 2019-01-30 19:00 | NUR ---
Bedside rounds completed with morning nurse. Pt alert and orient to name. Lying right side in bed. Denies pain at this time. Call vences within reach. Bed low and locked. Will continue to monitor.
[2019-01-30 19:27] LABS: HIV 1&2 AB SCREEN NON-REACTIVE (NONREACTIVE)
[2019-01-30] MEDS ORDERED: IOPAMIDOL 370 MG/ML 200 ML INFUS..BTL INJ ONE (21:09)
[2019-01-30] MEDS ORDERED: SODIUM CHLORIDE 0.9% 100 ML 100 ML ONE (21:09)
--- NOTE | 2019-01-30 22:42 | Diagnostic Imaging Report ---
CTA lower extremity, with and without contrast. History: Peripheral vascular disease. Comparison: None available. Technique: Multidetector [address] scanning with 4 mm cuts of the pelvis and bilateral lower extremities was performed from the level of the iliac crests to the feet, before and after intravenous administration of 100 cc isovue 300. Scanning during precontrast, arterial, and venous phases was performed. For optimization of anatomic evaluation, multiplanar reconstruction, maximum intensity projections, and advanced 3-D off-line postprocessing were performed on a dedicated stand-alone workstation under the direct supervision of the interpreting physician. IV CONTRAST: 100 cc isovue 300 ORAL CONTRAST: None. RADIATION DOSE: Total DLP: 388.87 mGy*cm Estimated Effective Dose: DLP x 0.015 mSv COMPLICATIONS: None Discussion: Pelvis vessels: Left common, external, and internal iliac arteries are patent. Left lower extremity: There is atherosclerotic plaque throughout the entire left lower arterial vasculature. Left common femoral, profundus femoral, superficial femoral, and popliteal arteries are patent. There is a patent trifurcation with both anterior and posterior tibial arteries supply the foot. Other: The bladder, pelvic organs, and visualized bowel and bones are normal in appearance. There is no evidence of free fluid or adenopathy. Generalized osteopenia without acute osseous abnormality. IMPRESSION: Atherosclerotic changes without significant stenosis. Signed by: Dr. Mat Watkins M.D. on 01/30/2019 10:38 PM
[2019-01-31] VITALS (7 sets, daily range): BP systolic 138–196; BP diastolic 66–88
[2019-01-31] MEDS: VANCOMYCIN 750MG/NS 150ML IVPB 150 ML IV SCH ×2 (02:00→13:00)
[2019-01-31] MEDS: HYDROMORPHONE 2MG/ML 2 MG/ML ML IV PRN ×2 (04:56→11:15)
[2019-01-31] MEDS: LEVOTHYROXINE SODIUM 25 MCG TABLET PO SCH (06:28)
[2019-01-31] MEDS: PIPERACILLIN/TAZO 2.25 GM 50 ML IV SCH ×3 (06:28→22:00)
[2019-01-31 06:40] LABS: BASOPHILS # (AUTO) 0.1 (0.0-0.1); BASOPHILS % 1.6 % (0.0-1.0); EOSINOPHILS # (AUTO) 0.2 (0.0-0.4); EOSINOPHILS % 3.2 % (0.0-6.0); HEMATOCRIT 40.3 % (34.2-44.1); HEMOGLOBIN 13.2 g/dL (12.0-16.0); LYMPHOCYTES # (AUTO) 1.2 (1.0-3.2); LYMPHOCYTES % 22.9 % (18.0-39.1); MEAN CORPUSCULAR HEMOGLOBIN 32.6 pg (28-32); MEAN CORPUSCULAR HGB CONC 32.8 g/dL (31-35); MEAN CORPUSCULAR VOLUME 99.5 fL (81-99); MONOCYTES # (AUTO) 0.8 (0.2-0.8); MONOCYTES % 15.6 % (4.4-11.3); NEUTROPHILS # (AUTO) 2.9 (2.1-6.9); NEUTROPHILS % 56.3 % (38.7-80.0); PLATELET COUNT 149 x10e3/uL (140-360); RED BLOOD COUNT 4.05 x10e6/uL (3.6-5.1); RED CELL DISTRIBUTION WIDTH 13.3 % (11.7-14.4)
[2019-01-31 07:00] LABS: ANION GAP 11.1 mmol/L (8-16); BLOOD UREA NITROGEN < 5 mg/dL (7-26); BUN/CREATININE RATIO 9 (6-25); CALCIUM 8.7 mg/dL (8.4-10.2); CARBON DIOXIDE 30 mmol/L (22-29); CHLORIDE 97 mmol/L (98-107); CREATININE, SERUM 0.55 mg/dL (0.57-1.11); EST GLOMERULAR FILTRATION RATE > 60 ML/MIN (60-); GLUCOSE 91 mg/dL (74-118); MAGNESIUM 1.7 MG/DL (1.3-2.1); POTASSIUM 4.1 mmol/L (3.5-5.1); SODIUM 134 mmol/L (136-145)
[2019-01-31] MEDS: ASPIRIN 81 MG ENTERIC COATED PO SCH (07:16)
[2019-01-31] MEDS: NICOTINE 21 MG/EA PATCH TOP SCH (08:01)
[2019-01-31] MEDS: COLLAGENASE 5 GM TUBE TOP SCH (08:01)
[2019-01-31] MEDS: AMLODIPINE BESYLATE 5 MG TAB PO SCH (08:01)
[2019-01-31] MEDS: GABAPENTIN 100 MG CAP PO SCH ×3 (08:01→22:00)
[2019-01-31] MEDS: PAROXETINE HCL 20 MG TAB PO SCH (08:01)
--- NOTE | 2019-01-31 08:45 | NUR ---
Pt received resting in bed. Alert and oriented x4. Emotional support given. Meds given as ordered. Will monitor
--- NOTE | 2019-01-31 10:08 | NUR ---
Attempted to do dressing change but pt is sleeping, and complained about being "woken up too much". Will closely monitor
[2019-01-31] MEDS: ONDANSETRON HCL INJ 2MG/ML 2ML 2 MG/ML VIAL IV PRN (11:15)
[2019-01-31] MEDS: CLONIDINE HCL 0.1 MG TAB PO SCH ×2 (12:23→17:14)
[2019-01-31] MEDS: LISINOPRIL 10 MG TAB PO SCH (12:23)
--- NOTE | 2019-01-31 18:08 | NUR ---
IM- progress note O/N: no events ROS:no cp/sob/f/c/s/N/V/D/MONIQUE/vision changes/back pain/MONIQUE v/s; rev'd PE: tired appearing anicteric ns1s2 mod bs soft nt nd LEFT LOWER FORELEG WITH 4 DISCRETE ULCERS RANGING FROM 1 INCH TO 2 OR 3 INCHES; NO ODOR; DP 1+ B/L; ext minimally cool; skin dry flat affect a&ox3; solomon labs/med; rev'd A/P: 78yoF Cellulitis of left foreleg Left leg Ulcers Cig use HTN urgency Underweight state BMI 17 ITP Mood d/o Hypothyroidism Neuropathy PLAN 1.f/u labs 2.prealbumin level 3.IV abx 4.Consult wound care- 5.Consult Cardio for vascular w-up 6.Told pt it is critical to quit cigs now; start nicotine patch Prop: pepcid; DVT prop pending labs Dispo; f/u labs; f/u consults; 01/30 vasculitis w-up. 01/31 f/u studies; HIV negative; Pop Kamara MD, PhD.
--- NOTE | 2019-01-31 19:00 | NUR ---
Completed bedside rounds with morning nurse. Pt alert and orient to name. Lying right side in bed. c/o 9/10 bilateral leg pain. Call vences within reach. Bed low and locked. Will continue to monitor.
--- NOTE | 2019-01-31 19:20 | NUR ---
prn Dilaudid admin for bilateral leg pain 06/15. Repositioned self in bed. call vences within reach
[2019-01-31] MEDS: HYDRALAZINE HCL 25 MG TAB PO SCH (22:00)
[2019-02-01] VITALS (8 sets, daily range): BP systolic 113–163; BP diastolic 58–75
[2019-02-01] MEDS: VANCOMYCIN 750MG/NS 150ML IVPB 150 ML IV SCH ×2 (02:32→14:00)
[2019-02-01] MEDS: HYDROMORPHONE 2MG/ML 2 MG/ML ML IV PRN ×3 (02:32→17:45)
[2019-02-01] MEDS: LEVOTHYROXINE SODIUM 25 MCG TABLET PO SCH (05:33)
[2019-02-01] MEDS: PIPERACILLIN/TAZO 2.25 GM 50 ML IV SCH ×3 (05:33→21:34)
--- NOTE | 2019-02-01 07:00 | NUR ---
RECEIVED PATIENT RESTING IN BED. NO ACUTE DISTRESS NOTED. CALL LIGHT WITHIN REACH. BED IN THE LOWEST POSITION.
[2019-02-01] MEDS: ASPIRIN 81 MG ENTERIC COATED PO SCH (09:00)
[2019-02-01] MEDS: AMLODIPINE BESYLATE 5 MG TAB PO SCH (09:06)
[2019-02-01] MEDS: NICOTINE 21 MG/EA PATCH TOP SCH (09:06)
[2019-02-01] MEDS: CLONIDINE HCL 0.1 MG TAB PO SCH ×2 (09:06→16:01)
[2019-02-01] MEDS: GABAPENTIN 100 MG CAP PO SCH ×3 (09:06→20:15)
[2019-02-01] MEDS: PAROXETINE HCL 20 MG TAB PO SCH (09:06)
[2019-02-01] MEDS: HYDRALAZINE HCL 25 MG TAB PO SCH ×3 (09:06→20:15)
[2019-02-01] MEDS: LISINOPRIL 10 MG TAB PO SCH (09:06)
[2019-02-01] MEDS: COLLAGENASE 5 GM TUBE TOP SCH (10:02)
--- NOTE | 2019-02-01 10:03 | NUR ---
IM- progress note O/N: no events ROS:no cp/sob/f/c/s/N/V/D/MONIQUE/vision changes/back pain/MONIQUE v/s; rev'd PE: tired appearing anicteric ns1s2 mod bs soft nt nd LEFT LOWER FORELEG WITH 4 DISCRETE ULCERS RANGING FROM 1 INCH TO 2 OR 3 INCHES; NO ODOR; DP 1+ B/L; ext minimally cool; skin dry flat affect a&ox3; solomon labs/med; rev'd A/P: 78yoF Cellulitis of left foreleg Left leg Ulcers Cig use HTN urgency Underweight state BMI 17 ITP Mood d/o Hypothyroidism Neuropathy PLAN 1.f/u labs 2.prealbumin level 3.IV abx 4.Consult wound care- 5.Consult Cardio for vascular w-up 6.Told pt it is critical to quit cigs now; start nicotine patch Prop: pepcid; DVT prop pending labs Dispo; f/u labs; f/u consults; 01/30 vasculitis w-up. 01/31 f/u studies; HIV negative; 02/01 f/u studies; cont abx; Pop Kamara MD, PhD.
--- NOTE | 2019-02-01 12:05 | NUR ---
ORDER RECEIVED FOR SNF. MET W THE PT AT THE BEDSIDE. PT STATES SHE DOES NOT WANT TO GO TO THE [facility]. PROVIDED PT A LIST OF IN NETWORK SNF'S. CHOICE LETTER WAS SIGNED AND COPY TO PT AND COPY TO CHART. PT CHOSE [facility]. REFERRAL FAXED TO ARIANNA @ OFF: [phone] / FAX: [phone].
--- NOTE | 2019-02-01 15:37 | NUR ---
WOUND CARE CONSULTATION: INITIAL EVALUATION Patient admitted from Home to ER for non healing ulcers to LLE with Increased Pain and failed outpatient treatment. Wound Culture Presents with Stap. Aureus. IV ABX Vancomycin and Zosyn. Patient VISIT: Patient in bed AAOX4, calm and cooperative. LLE presents with tenderness to touch, Irregular edges to medial and lateral ulcers. Draining serosanguineous fluid with 20% slough and 80% Granulation. Mild edema noted. with circumferential redness present. Dr. Magdaleno on case for wound care management and has Santyl for treatment and cover daily. Dressing changed as prescribed. Tolerated procedure well. IMPRESSION: 1. LLE Cellulitis with Ulcerations to Medial and Lateral Aspects RECOMMENDATION: 1. LLE Cellulitis with Ulcerations- - Cleanse with NS and 4x4 gauze - Apply Santyl and Cover with Xeroform Single Layer then ABD Pad & Secure with Kerlix & Tape Daily 2. Continue Conservative PUP Addendum: 02/01/19 at 1543 by Feliciano Stroud RN Amended: Links added.
[2019-02-01] MEDS ORDERED: ONDANSETRON HCL 4 MG ORAL DISINTEGRATING TAB PO PRN (15:45)
--- NOTE | 2019-02-01 17:56 | NUR ---
RECEIVED A CALL FROM HIMA KELLER REQUESTING DURATION OF VANC AND ZOSYN. ALSO STATES DIFLUCAN WILL NEED TO BE PO. CALL PLACE TO DR. MELLO, BUT NO RESPONSE AT THIS TIME. WILL UPDATE HIMA WHEN THIS INFO HAS BEEN PROVIDED.
--- NOTE | 2019-02-01 19:25 | NUR ---
REPORT GIVEN TO ONCOMING NURSE, WALKING ROUNDS DONE. PATIENT IS IN RESTING IN RECLINER, NO ACUTE DISTRESS NOTED. CALL LIGHT WITHIN REACH. BED IN THE LOWEST POSITION.
--- NOTE | 2019-02-01 19:26 | NUR ---
PT IS SITTING IN THE RECLINER WATCHING TELEVISION. NO RESPIRATORY DISTRESS NOTED. BED IN THE LOWEST POSITION, LOCKED, AND CALL LIGHT WITHIN REACH. WILL CONTINUE TO MONITOR.
[2019-02-02] VITALS (8 sets, daily range): BP systolic 112–174; BP diastolic 54–78
[2019-02-02] MEDS: HYDROMORPHONE 2MG/ML 2 MG/ML ML IV PRN ×4 (00:14→20:17)
[2019-02-02] MEDS: VANCOMYCIN 750MG/NS 150ML IVPB 150 ML IV SCH ×2 (01:23→14:08)
[2019-02-02] MEDS: LEVOTHYROXINE SODIUM 25 MCG TABLET PO SCH (05:35)
[2019-02-02] MEDS: PIPERACILLIN/TAZO 2.25 GM 50 ML IV SCH ×3 (05:35→22:25)
--- NOTE | 2019-02-02 07:00 | NUR ---
RECEIVED PATIENT RESTING IN BED. NO ACUTE DISTRESS NOTED. CALL LIGHT WITHIN REACH. BED IN THE LOWEST POSITION.
--- NOTE | 2019-02-02 07:55 | NUR ---
IM- progress note O/N: no events ROS:no cp/sob/f/c/s/N/V/D/MONIQUE/vision changes/back pain/MONIQUE v/s; rev'd PE: tired appearing anicteric ns1s2 mod bs soft nt nd LEFT LOWER FORELEG WITH 4 DISCRETE ULCERS RANGING FROM 1 INCH TO 2 OR 3 INCHES; NO ODOR; DP 1+ B/L; ext minimally cool; skin dry flat affect a&ox3; solomon labs/med; rev'd A/P: 78yoF Cellulitis of left foreleg Left leg Ulcers Cig use HTN urgency Underweight state BMI 17 ITP Mood d/o Hypothyroidism Neuropathy PLAN 1.f/u labs 2.prealbumin level 3.IV abx 4.Consult wound care- 5.Consult Cardio for vascular w-up 6.Told pt it is critical to quit cigs now; start nicotine patch Prop: pepcid; DVT prop pending labs Dispo; f/u labs; f/u consults; 01/30 vasculitis w-up. 01/31 f/u studies; HIV negative; 02/01 f/u studies; cont abx; 02/02 f/u studies; refuses snf; d/c planning for Home with HH/PT. d/w - will refer to dermatology for bx and pathology studies; will need abx at home to prevent bacterial infection. Pop Kamara MD, PhD.
[2019-02-02] MEDS: HYDRALAZINE HCL 25 MG TAB PO SCH ×3 (09:14→20:17)
[2019-02-02] MEDS: CLONIDINE HCL 0.1 MG TAB PO SCH ×2 (09:14→16:46)
[2019-02-02] MEDS: ASPIRIN 81 MG ENTERIC COATED PO SCH (09:14)
[2019-02-02] MEDS: AMLODIPINE BESYLATE 5 MG TAB PO SCH (09:14)
[2019-02-02] MEDS: GABAPENTIN 100 MG CAP PO SCH ×3 (09:14→20:17)
[2019-02-02] MEDS: LISINOPRIL 10 MG TAB PO SCH (09:15)
[2019-02-02] MEDS: NICOTINE 21 MG/EA PATCH TOP SCH (09:15)
[2019-02-02] MEDS: PAROXETINE HCL 20 MG TAB PO SCH (11:37)
[2019-02-02] MEDS: LISINOPRIL 20 MG TAB PO SCH (11:37)
--- NOTE | 2019-02-02 16:42 | NUR ---
MET W THE PT AT THE BEDSIDE. STATES SHE HAD NOT RECEIVED A CALL FROM THE WOUND CARE CLINIC AND WAS NOT SURE IF SHE WAS ACCEPTED. CALL MADE TO THE WOUND CARE CLINIC TO VERIFY. STATES A REFERRAL FROM DR. MELLO WAS NEEDED AND CLINICALS NEEDED TO BE FAXED OVER. CALL WAS PLACED TO DR. MELLO. DR. MELLO OK'D OP WOUND CARE CLINIC REFERRAL. INFORMED THE PT WILL BE RETURNING TO WORK AND IS NOT ELIGIBLE FOR HH. DR. MELLO STATES HE MAY DC TODAY OR IN THE AM. REFERRAL WAS FAXED TO [facility] AT OFF: [phone] / FAX: [phone]. PT GIVEN CONTACT INFO FOR WOUND CARE CLINIC. STATES SHE WILL CALL IN THE MORNING FOR AN APPOINTMENT.
[2019-02-02] MEDS: COLLAGENASE 5 GM TUBE TOP SCH (17:30)
[2019-02-02] MEDS ORDERED: NICODERM CQ1 EAC2 TOP (17:55)
[2019-02-02] MEDS ORDERED: CIPRO500 MG PO (17:55)
[2019-02-02] MEDS ORDERED: MINOCYCLINE HC100 M1 PO (17:55)
[2019-02-02] MEDS ORDERED: CATAPRES0.1 MG PO (17:55)
[2019-02-02] MEDS ORDERED: HYDRALAZINE HCL25 MG PO (17:55)
--- NOTE | 2019-02-02 19:20 | NUR ---
REPORT GIVEN TO ONCOMING NURSE. PATIENT IS IN RESTING IN BED. NO ACUTE DISTRESS NOTED. CALL LIGHT WITHIN REACH. BED IN THE LOWEST POSITION.
--- NOTE | 2019-02-02 19:23 | NUR ---
PT IS SITTING IN THE BED. NO RESPIRATORY DISTRESS NOTED. BED IN THE LOWEST POSITION, LOCKED, AND CALL LIGHT WITHIN REACH. WILL CONTINUE TO MONITOR.
[2019-02-03] VITALS: BP 150/67
[2019-02-03] MEDS: VANCOMYCIN 750MG/NS 150ML IVPB 150 ML IV SCH (02:07)
[2019-02-03 04:00] VITALS: BP 164/74
[2019-02-03] MEDS: LEVOTHYROXINE SODIUM 25 MCG TABLET PO SCH (05:51)
[2019-02-03] MEDS: PIPERACILLIN/TAZO 2.25 GM 50 ML IV SCH (05:51)
[2019-02-03] MEDS: HYDROMORPHONE 2MG/ML 2 MG/ML ML IV PRN (05:52)
--- NOTE | 2019-02-03 06:37 | NUR ---
PT IS RESTING IN BED. NO RESPIRATORY DISTRESS NOTED. NO ACUTE EVENT OCCURRED THROUGHOUT THE NIGHT. BED IN THE LOWEST POSITION, LOCKED, AND CALL LIGHT WITHIN REACH. REPORT GIVEN TO ONCOMING NURSE.
[2019-02-03 06:55] LABS: CHOL/HDL RATIO 3.4 (3.0-3.6)
[2019-02-03 07:47] VITALS: BP 158/72
[2019-02-03 08:25] VITALS: BP 158/72
--- NOTE | 2019-02-03 08:25 | NUR ---
Pt received resting in bed. Alert and oriented x4 with 4 venous stasis ulcers to left lower leg. Oriented to staff and surroundings. Encouraged to press call vences if help needed. Pt is for discharge today. Will follow up
[2019-02-03] MEDS: HYDRALAZINE HCL 25 MG TAB PO SCH (08:27)
[2019-02-03] MEDS: GABAPENTIN 100 MG CAP PO SCH (08:27)
[2019-02-03] MEDS: CLONIDINE HCL 0.1 MG TAB PO SCH (08:27)
[2019-02-03] MEDS: PAROXETINE HCL 20 MG TAB PO SCH (08:27)
[2019-02-03] MEDS: AMLODIPINE BESYLATE 5 MG TAB PO SCH (08:27)
[2019-02-03] MEDS: ASPIRIN 81 MG ENTERIC COATED PO SCH (08:27)
[2019-02-03] MEDS: LISINOPRIL 20 MG TAB PO SCH (08:28)
[2019-02-03] MEDS: NICOTINE 21 MG/EA PATCH TOP SCH (08:28)
[2019-02-03] MEDS ORDERED: LISINOPRIL 10 MG TAB PO SCH (09:00)
[2019-02-03] MEDS: COLLAGENASE 5 GM TUBE TOP SCH (10:56)
[2019-02-03] MEDS ORDERED: HYDROMORPHONE 1MG/1ML INJ IV STA (10:57)
[2019-02-03] MEDS ORDERED: HYDROMORPHONE 2MG/ML 2 MG/ML ML IV NR (11:15)
--- NOTE | 2019-02-03 11:23 | NUR ---
Pt given discharge instructions regarding meds, diet, activities, wound care, and follow up appointment with MDs. Pt verbalized understanding of teaching. Waiting on son for pickup at noon
[2019-02-03 11:38] VITALS: BP 135/60
== END 2019-02-03 12:13 | disposition home or self-care (01) | DRG 300 ==
LOC: ER 11:56 → ERHOLD 13:25 → MED/SURG3 15:47
PROVIDERS: ADMIT Internal Medicine; ATTEND Internal Medicine
DX: E11.51 Type 2 diabetes mellitus with diabetic peripheral angiopathy without gangrene (principal); Z68.1 Body mass index [BMI] 19.9 or less, adult; D69.3 Immune thrombocytopenic purpura; L97.828 Non-pressure chronic ulcer of other part of left lower leg with other specified severity; L97.818 Non-pressure chronic ulcer of other part of right lower leg with other specified severity; I70.238 Atherosclerosis of native arteries of right leg with ulceration of other part of lower leg; I16.0 Hypertensive urgency; I10 Essential (primary) hypertension; R63.6 Underweight; F39 Unspecified mood [affective] disorder; E03.9 Hypothyroidism, unspecified; J44.9 Chronic obstructive pulmonary disease, unspecified; R91.1 Solitary pulmonary nodule; Z79.52 Long term (current) use of systemic steroids; Z79.4 Long term (current) use of insulin; F17.200 Nicotine dependence, unspecified, uncomplicated
CPT/HCPCS: 36415; 71045; 71260; 80048; 80053; 80061; 80202; 81001; 82550; 82553; 82784; 83735; 84134; 84443; 84484; 85025; 85610; 85651; 85730; 86021; 86039; 86140; 86160; 87040; 87071; 87086; 87186; 87205; 87390; 93005; 93306; 93925; 99284; G0433; G0435; J2405; J2543; J3370; J7030; Q9967

== ENCOUNTER 2019-05-06 17:21 | Inpatient (IN) | payer MEDICARE ==
[~2019-05-06] VITALS: Ht 162.6 cm; Wt 58.1 kg
[~2019-05-06 17:21] MED LIST changes: +CATAPRES0.1 MG PO; +CIPRO500 MG PO; +HYDRALAZINE HCL25 MG PO; +MINOCYCLINE HC100 M1 PO; +NICODERM CQ1 EAC2 TOP
--- OUTSIDE RECORDS SUMMARY | 2019-05-06 17:26 | XMS REPORT | Clinical Summary ---
Author Author [facility] Organization [facility] Address Unknown Phone Unavailable Care Team Providers Care Pipe Washer Name Role Phone Asad Barker MD PCP [...] VACCINE 2006 (1 of 2 - PCV13) INFLUENZA VACCINE 05/06/2019 Results Not on fileafter 05/05/2018 Insurance Type Payer Benefit Subscriber ID Effective Phone Address Plan / Dates Group Commercial [employer] xxxxxxxxxx 2006- MUTUAL Present Medicare MEDICARE MEDICARE xxxxxxxxxxx 2006-P JAYJAY, PART A AND resent [place] Advance Directives Patient has advance care planning documents on file. For more information, raheem carter contact: Jayjay De La [address] [place] [address]
--- OUTSIDE RECORDS SUMMARY | 2019-05-06 17:26 | XMS REPORT | Clinical Summary ---
Author Author [facility] Organization [facility] Address Unknown Phone Unavailable Care Team Providers Care Herb Grower Name Role Phone Maya Urban MD PCP [...] as needed for Staphylococcal infection Pain. Active hydrALAZINE (APRESOLINE) Take 1 tablet 90 tablet 2 25 mg tabletIndications: by mouth 3 9 HTN, goal below 140/90 times daily. Active mupirocin (BACTROBAN) 2 % Apply to nose 22 g 0 ointmentIndications: 2 times daily 9 Staphylococcal infection for one week. Active nicotine (NICODERM CQ) 14 Apply 1 Patch 28 Patch 0 mg/24 hr to skin as 9 patchIndications: directed Encounter for smoking every 24 cessation counseling hours. Active acetaminophen-codeine Take 1 tablet 75 tablet 1 (TYLENOL/CODEINE #3) by mouth 3 9 300-30 mg per times daily tabletIndications: Ulcers as needed for of both lower legs Pain. 05/13/2019 Active sulfamethoxazole-trimetho Take 1 tablet 20 tablet 0 prim (BACTRIM DS) 800-160 by mouth 2 9 mg per tabletIndications: times daily Ulcers of both lower legs for 10 days. Active amitriptyline (ELAVIL) 25 Take 1 tablet 30 tablet 2 mg tabletIndications: by mouth at 9 Ulcers of both lower legs bedtime nightly. 12/28/2018 clindamycin (CLEOCIN HCL) Take 1 40 capsule 0 300 mg capsule by 9 capsuleIndications: mouth 4 times Staphylococcal infection daily for 10 days. 03/30/2019 Discontinued mupirocin (BACTROBAN) 2 % Apply to nose 22 g 0 ointmentIndications: 2 times daily 9 Staphylococcal infection for one week. 01/01/2019 chlorhexidine gluconate Apply 1 120 mL 0 (HIBICLENS) 4 % external Bottle to 9 liquidIndications: affected area Staphylococcal infection daily as needed for up to 14 days for Pain. 02/06/2019 amoxicillin-clavulanate Take 1 tablet 20 tablet 0 (AUGMENTIN) 875-125 mg by mouth 2 9 per tabletIndications: times daily Ulcers of both lower legs for 10 days. 02/06/2019 ciprofloxacin HCl (CIPRO) Take 1 tablet 20 tablet 0 500 mg tabletIndications: by mouth 2 9 Ulcers of both lower legs times daily for 10 days. 03/30/2019 Discontinued acetaminophen-codeine Take 1 tablet 60 tablet 1 (TYLENOL/CODEINE #3) by mouth 3 9 300-30 mg per times daily tabletIndications: Ulcers as needed for of both lower legs Pain. 05/03/2019 Discontinued acetaminophen-codeine Take 1 tablet 75 tablet 1 (TYLENOL/CODEINE #3) by mouth 3 9 300-30 mg per times daily tabletIndications: Ulcers as needed for of both lower legs Pain. Active Problems No known active problems Encounters Care Team Description Date Type Specialty Maya Urban MD Ulcers of both lower legs 05/03/2019 Office Visit Family [facility] Jamie Lilly 05/03/2019 Clinical Case Social Work Mgt 05/03/2019 Travel Maya Urban MD Need for vaccination (Primary Dx); Staphylococcal infection; HTN, goal below 140/90; Ulcers of both lower legs; Encounter for smoking cessation counseling 03/30/2019 Office Visit Family Practice 03/30/2019 Travel Maya Urban MD Ulcers of both lower [...] Office Visit Family Practice 12/18/2018 Travel after 05/05/2018 Immunizations Name Administration Dates Next Due Influenza, 12/18/2018 Vaccine<FLUCELVAX>(Multi- Dose) PCV 13 (Pnuemococcal 12/18/2018 Conjugated 13 Valent) Tdap (Tetanus Toxoid, 03/30/2019 (Deferred: Patient Refused), 12/18/2018 Reduced Diphtheria Toxoid (Deferred: Unavailable-Patient to return for And Acellular Pertussis, vaccine later) Absorbed) Zoster Vaccine (Shingrix) 03/30/2019 (Deferred: Patient Refused), 12/30/2018 (Deferred: Vaccine Unavailable) Family History Medical History Relation Name Comments Diabetes Father Cancer Mother Relation Name Status Comments Father Mother Social History Date Tobacco Use Types Packs/Day Years Used Quit: 02/27/2019 Former Smoker Cigarettes 0.5 40 Smokeless Tobacco: Never Used Tobacco Cessation: Ready to Quit: No; Counseling Given: Yes Drinks/Week oz/Week Comments Alcohol Use occasionally Yes Food Insecurity Answer Date Recorded Within the past 12 months, you worried that your Never true 12/18/2018 food would run out before you got money to buy more. Within the past 12 months, the food you bought Never true 12/18/2018 just didn't last and you didn't have money to get more. Sex Assigned at Date Recorded Not on file Industry Job Start Date Occupation Not on file Not on file Not on file Travel End Travel History Travel Start No recent travel history available. Last Filed Vital Signs Reading Time Taken Comments Vital Sign 154/68 05/03/2019 2:33 PM CDT manual BP, right arm Blood Pressure 65 05/03/2019 2:14 PM CDT Pulse 36.7 C (98.1 F) 05/03/2019 2:14 PM CDT Temperature 16 05/03/2019 2:14 PM CDT Respiratory Rate - - Oxygen Saturation - - Inhaled Oxygen Concentration 48.1 kg (106 lb) 05/03/2019 2:14 PM CDT Weight 163.8 cm (5' 4.5") 05/03/2019 2:14 PM CDT Height 17.91 05/03/2019 2:14 PM CDT Body Mass Index Plan of Treatment Health Maintenance Due Date Last Done Comments IMM Pneumococcal Age 65 2006 and Up IMM Influenza Seasonal 07/06/2019 12/18/2018 Oct to December (>/=19 yrs) Procedures Comments Procedure Name Priority Date/Time Associated Diagnosis WOUND/ABSCESS CULTURE AND Routine 05/03/2019 Ulcers of both lower legs GRAM STAIN 3:30 PM CDT ABSCESS STAIN / CULTURE Routine 12/18/2018 Staphylococcal infection 11:04 AM CDT CBC/DIFF STAT 12/18/2018 History of ITP 10:52 AM CDT after 05/05/2018 Results * ABSCESS STAIN / CULTURE (12/18/2018 11:04 AM CDT) Spec Right ankle [facility] Description Order Comments None [facility] Gram Stain 1+ WBC's seen BT [...] Resistant BT MICROBIOLOGY Specimen Wound abscess - Ankle, right Performing Organization Address City/State/Zipcode Phone Number [facility] MICROBIOLOGY * CBC/DIFF (12/18/2018 10:52 AM CDT) WBC 4.5 4.5 - 11.0 K/uL [facility] RBC 4.55 4.20 - 5.40 M/uL [facility] Hemoglobin 14.7 12.0 - 16.0 g/dL [facility] Hematocrit 44.2 37.0 - 47.0 % [facility] MCV 97 (H) 82 - 92 fL [facility] MCH 32.3 (H) 27.0 - 32.0 pg [facility] MCHC 33.3 32.0 - 36.0 g/dL [facility] RDW 45.9 36.4 - 46.3 fL [facility] Platelets 177 150 - 400 K/uL [facility] Neutrophils 45.6 34.0 - 70.0 % [facility] Lymphs 34.7 20.0 - 50.0 % [facility] Monocytes 15.9 (H) 5.0 - 12.0 % [facility] Eos 1.8 0.7 - 5.0 % [facility] Basos 2.0 (H) 0.1 - 1.2 % [facility] Neutrophils 2.06 1.56 - 6.13 K/uL [facility] (Absolute) Lymphs 1.57 1.18 - 3.74 K/uL [facility] (Absolute) Monocytes(Absol 0.72 (H) 0.24 - 0.36 K/uL [facility] [place]) Eos (Absolute) 0.08 0.04 - 0.36 K/uL [facility] Baso (Absolute) 0.09 (H) 0.01 - 0.08 K/uL [facility] Specimen Blood Performing Organization Address City/State/Zipcode Phone Number [facility] [place] after 05/05/2018 Insurance Type Payer Benefit Subscriber ID Effective Phone Address Plan / Dates Group [employer] MEDIC[employer] HMO AMER[employer]ANTA xxxxxxxxx 2018-P [phone] [address] [facility] [address] [place] [address]
[2019-05-06 18:33] LABS: BASOPHILS # (AUTO) 0.1 (0.0-0.1); BASOPHILS % 1.6 % (0.0-1.0); EOSINOPHILS # (AUTO) 0.2 (0.0-0.4); HEMATOCRIT 34.8 % (34.2-44.1); HEMOGLOBIN 11.4 g/dL (12.0-16.0); LYMPHOCYTES # (AUTO) 1.5 (1.0-3.2); LYMPHOCYTES % 19.3 % (18.0-39.1); MEAN CORPUSCULAR HEMOGLOBIN 32.7 pg (28-32); MEAN CORPUSCULAR HGB CONC 32.8 g/dL (31-35); MEAN CORPUSCULAR VOLUME 99.7 fL (81-99); MONOCYTES % 13.4 % (4.4-11.3); NEUTROPHILS # (AUTO) 4.7 (2.1-6.9); NEUTROPHILS % 61.6 % (38.7-80.0); PLATELET COUNT 285 x10e3/uL (140-360); RED BLOOD COUNT 3.49 x10e6/uL (3.6-5.1); RED CELL DISTRIBUTION WIDTH 13.8 % (11.7-14.4)
[2019-05-06 18:52] LABS: ALBUMIN 2.8 g/dL (3.5-5.0); ALBUMIN/GLOBULIN RATIO 0.6 (0.8-2.0); ANION GAP 17.1 mmol/L (8-16); CALCIUM 9.1 mg/dL (8.4-10.2); CREATININE, SERUM 0.95 mg/dL (0.57-1.11); POTASSIUM 4.1 mmol/L (3.5-5.1)
[2019-05-06] MEDS ORDERED: MORPHINE SULFATE 2 MG/ML SYR 1ML IV ONE (18:54)
[2019-05-06] MEDS ORDERED: ONDANSETRON HCL INJ 2MG/ML 2ML 2 MG/ML VIAL IV ONE (18:54)
[2019-05-06] MEDS ORDERED: SODIUM CHLORIDE 0.9% 1000ML 1,000 ML IV STA (18:54)
--- NOTE | 2019-05-06 18:54 | Diagnostic Imaging Report ---
A single frontal view of the chest. HISTORY: Sepsis, wounds on left leg COMPARISON: Chest radiograph January 29, 2019 DISCUSSION: Portable technique, limits sensitivity of the exam. Tubes/Lines: None Lungs and pleura: The lungs are well inflated. No evidence of a consolidative pneumonia or pulmonary alveolar edema. No definite pleural effusion or pneumothorax is identified. Heart and mediastinum: The cardiomediastinal silhouette appears unremarkable. Atherosclerotic vascular calcifications at the aortic arch. 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 IMPRESSION: 1. No acute radiographic abnormality. 2. No significant interval change. Signed by: Dr. Eliseo Claudio D.O., M.M.M. on 05/06/2019 6:51 PM
[2019-05-06] MEDS ORDERED: VANCOMYCIN 1GM/NS 250 ML 250 ML IV ONE (19:00)
[2019-05-06] MEDS: PIPER-TAZ 3.375 GM 50 ML IV SCH (19:44)
[2019-05-06] MEDS ORDERED: MORPHINE SULFATE INJ 4 MG/ML INJ 1ML IV ONE (20:17)
[2019-05-06 20:32] LABS: BILIRUBIN,URINE NEGATIVE (NEGATIVE); CLARITY,URINE CLEAR (CLEAR); COLOR,URINE YELLOW (YELLOW); KETONES,URINE NEGATIVE (NEGATIVE); LEUKOCYTE ESTERASE ,URINE NEGATIVE (NEGATIVE); NITRITE,URINE NEGATIVE (NEGATIVE); PROTEIN,URINE DIPSTICK NEGATIVE (NEGATIVE); URINE UROBILINOGEN 0.2 mg/dL (0.2 - 1)
[2019-05-06 20:48] LABS: BACTERIA,URINE MANY /HPF; EPITHELIAL CELLS,URINE FEW /LPF; RENAL EPITHELIAL CELLS,URINE RARE
--- OUTSIDE RECORDS SUMMARY | 2019-05-06 21:21 | XMS REPORT | Clinical Summary ---
Author Author [facility] Organization [facility] Address Unknown Phone Unavailable Care Team Providers Care Manager Economic Name Role Phone Maya Urban MD PCP [...] both lower legs 05/03/2019 Office Visit Family [facility] Jamie Lilly 05/03/2019 Clinical Case Social Work [...] (12/18/2018 11:04 AM CDT) Spec Right ankle [facility] Description Order Comments None [facility] Gram Stain 1+ WBC's seen BT [...] Performing Organization Address City/State/Zipcode Phone Number [facility] MICROBIOLOGY * CBC/DIFF (12/18/2018 10:52 AM CDT) WBC 4.5 4.5 - 11.0 K/uL [facility] RBC 4.55 4.20 - 5.40 M/uL [facility] Hemoglobin 14.7 12.0 - 16.0 g/dL [facility] Hematocrit 44.2 37.0 - 47.0 % [facility] MCV 97 (H) 82 - 92 fL [facility] MCH 32.3 (H) 27.0 - 32.0 pg [facility] MCHC 33.3 32.0 - 36.0 g/dL [facility] RDW 45.9 36.4 - 46.[address] [facility] Platelets 177 150 - 400 K/uL [facility] Neutrophils 45.6 34.0 - 70.0 % [facility] Lymphs 34.7 20.0 - 50.0 % [facility] Monocytes 15.9 (H) 5.0 - 12.0 % [facility] Eos 1.8 0.7 - 5.0 % [facility] Basos 2.0 (H) 0.1 - 1.2 % [facility] Neutrophils 2.06 1.56 - 6.13 K/uL [facility] (Absolute) Lymphs 1.57 1.18 - 3.74 K/uL [facility] (Absolute) Monocytes(Absol 0.72 (H) 0.24 - 0.36 K/uL [facility] [place]) Eos (Absolute) 0.08 0.04 - 0.36 K/uL [facility] Baso (Absolute) 0.09 (H) 0.01 - 0.08 K/uL [facility] Specimen Blood Performing Organization Address City/State/Zipcode Phone Number [facility] [place] after 05/05/2018 Insurance Type Payer Benefit Subscriber ID Effective Phone Address Plan / Dates Group [employer] HMO [employer] xxxxxxxxx 2018-P [phone] [address] [facility] [address] [place] [address]
--- OUTSIDE RECORDS SUMMARY | 2019-05-06 21:21 | XMS REPORT | Clinical Summary ---
Author Author [facility]jay [facility] Organization [facility] Address Unknown Phone Unavailable Care Team Providers Care Video Surveillance Technician Name Role Phone Asad Barker MD PCP [...] raheem carter contact: Jayjay De La O [address] [place] [address]
[2019-05-06] MEDS: SODIUM CHLORIDE 0.9% 1000ML 1,000 ML IV SCH (21:30)
[2019-05-06] MEDS: HYDROMORPHONE 1MG/1ML INJ IV PRN (22:12)
--- NOTE | 2019-05-06 22:13 | NUR ---
DSG CHANGE TO BLE. VASELINE GAUZE/TELFA/TANK WRAP. MEDCIATED WITH 1MG IV DILAUDID FOR PAIN 07/15.
[2019-05-06] MEDS ORDERED: TYLENOL # 31 EA PO (22:55)
[2019-05-06] MEDS ORDERED: CLONIDINE HCL0.1 MG PO (22:55)
[2019-05-06] MEDS ORDERED: LEVOTHYROXINE25 MCG PO (22:55)
[2019-05-06] MEDS ORDERED: PAROXETINE HCL20 MG PO (22:55)
[2019-05-06] MEDS ORDERED: NICOTINE PATCH1 EAC2 TOP (22:55)
[2019-05-06] MEDS ORDERED: LISINOPRIL40 MG (22:55)
[2019-05-07] MEDS: PIPER-TAZ 3.375 GM 50 ML IV SCH ×5 (00:15→19:14)
[2019-05-07] MEDS: SODIUM CHLORIDE 0.9% 1000ML 1,000 ML IV SCH ×2 (00:36→07:28)
[2019-05-07] MEDS: HYDROMORPHONE 1MG/1ML INJ IV PRN ×3 (04:52→13:40)
[2019-05-07] MEDS ORDERED: ASPIR 8181 MG PO (05:02)
[2019-05-07 05:44] LABS: BASOPHILS # (AUTO) 0.1 (0.0-0.1); BASOPHILS % 0.7 % (0.0-1.0); EOSINOPHILS # (AUTO) 0.2 (0.0-0.4); EOSINOPHILS % 1.4 % (0.0-6.0); HEMATOCRIT 37.3 % (34.2-44.1); LYMPHOCYTES # (AUTO) 0.5 (1.0-3.2); LYMPHOCYTES % 4.3 % (18.0-39.1); MEAN CORPUSCULAR HEMOGLOBIN 32.7 pg (28-32); MEAN CORPUSCULAR HGB CONC 32.2 g/dL (31-35); MEAN CORPUSCULAR VOLUME 101.6 fL (81-99); MONOCYTES # (AUTO) 0.9 (0.2-0.8); MONOCYTES % 7.1 % (4.4-11.3); NEUTROPHILS # (AUTO) 10.6 (2.1-6.9); NEUTROPHILS % 85.8 % (38.7-80.0); PLATELET COUNT 222 x10e3/uL (140-360); RED BLOOD COUNT 3.67 x10e6/uL (3.6-5.1); RED CELL DISTRIBUTION WIDTH 13.7 % (11.7-14.4)
[2019-05-07 06:10] LABS: ALANINE AMINOTRANSFERASE 13 IU/L (0-55); ALBUMIN 2.6 g/dL (3.5-5.0); ALBUMIN/GLOBULIN RATIO 0.6 (0.8-2.0); ALKALINE PHOSPHATASE 105 IU/L (40-150); ANION GAP 15.1 mmol/L (8-16); BLOOD UREA NITROGEN 11 mg/dL (7-26); BUN/CREATININE RATIO 16 (6-25); CALCIUM 8.3 mg/dL (8.4-10.2); CARBON DIOXIDE 24 mmol/L (22-29); CHLORIDE 101 mmol/L (98-107); CREATININE, SERUM 0.69 mg/dL (0.57-1.11); EST GLOMERULAR FILTRATION RATE > 60 ML/MIN (60-); GLUCOSE 82 mg/dL (74-118); POTASSIUM 4.1 mmol/L (3.5-5.1); SODIUM 136 mmol/L (136-145)
[2019-05-07 06:33] LABS: ANISOCYTOSIS SLIGHT; EOSINOPHILS % (MANUAL) 2 % (0-7); LYMPHOCYTES % (MANUAL) 2 % (19-48); MONOCYTES % (MANUAL) 3 % (3.4-9.0); NEUTROPHILS % (MANUAL) 92 % (40-74); PLATELET ESTIMATE ADEQUATE; PLATELET MORPHOLOGY COMMENT NORMAL
[2019-05-07] MEDS ORDERED: VANCOMYCIN 750MG/NS 150ML IVPB 150 ML IV SCH (07:00)
[2019-05-07] MEDS: VANCOMYCIN 750MG/NS 150ML IVPB 150 ML IV SCH ×2 (08:02→21:00)
[2019-05-07] MEDS: ONDANSETRON HCL INJ 2MG/ML 2ML 2 MG/ML VIAL IV PRN ×2 (10:18→13:40)
[2019-05-07] MEDS ORDERED: HYDROCODONE/APAP 7.5MG-325MG 1 EA TAB PO PRN (14:45)
[2019-05-07] MEDS ORDERED: HYDROMORPHONE 1MG/1ML INJ IV PRN (15:15)
[2019-05-07] MEDS: HYDRALAZINE HCL 25 MG TAB PO SCH ×2 (15:16→21:00)
[2019-05-07 17:00] VITALS: BP 128/63
--- NOTE | 2019-05-07 17:00 | NUR ---
Pt received from ER at [facility]. Pt is aox4 and able to verbalize needs. Pt was admitted from for cellulitis and venous stasis ulcers to bilateral lower ext. Pt is able to ambulate with min assist to bathroom. Pt complaining of severe pain to bilateral legs.
[2019-05-07] MEDS: HYDROMORPHONE 2MG/ML 2 MG/ML ML IV PRN (17:03)
[2019-05-07 17:38] VITALS: BP 195/79
[2019-05-07 18:09] VITALS: BP 128/63
--- NOTE | 2019-05-07 19:20 | NUR ---
Bedside rounds completed with morning nurse. Pt alert to name. Lying in bed HOB 60 degrees. Pt c/o 04/14 BLE pain, previously medicated, repositioned self in bed. Bed low and locked. Call vences within reach. Will continue to monitor.
--- NOTE | 2019-05-07 19:31 | Consultation ---
DATE OF CONSULTATION: REASON FOR CONSULTATION: Cellulitis of the left leg, venous stasis ulcer infected, severe pain, neuropathy. HISTORY OF PRESENT ILLNESS: Thank you for asking me to see this patient. This is a 78-year-old white female, history of hypertension, history of hypothyroidism, history of venous stasis ulcer, which she has been dealing with since August and the patient apparently has been seeing Wound Care in [place], but she is not happy with the progress. So she is coming because she is having severe pain and also apparently there were some maggots yesterday coming from her legs and she was quite concerned, so she came here. The patient was seen in the emergency room and the patient denies history of specific injury. She says she does have a pump at the house in stocking, but she is not compliant with them. She is frustrated because the pain is getting progressively worse and then infection is getting progressively worse in spite of all the care and antibiotic that she has been taking before she came here. PAST MEDICAL HISTORY: Hypertension. She used to be heavy smoker, quit 3 months ago, history of hypothyroidism, history of venous stasis, history of neuropathy, and history of pain. PAST SURGICAL HISTORY: Multiple debridements on the leg. ALLERGIES: NKA. SOCIAL HISTORY: She smoked for 20 years, more than one-pack a day, but she quit 3 months ago. No drug abuse or alcohol abuse. FAMILY HISTORY: Hypertension. REVIEW OF SYSTEMS: HEENT: There is no headache, visual changes, or hearing changes. GI: There is some nausea. : There is no urgency, no frequency. SKIN: There is no acute rash. JOINTS: There is no erythema or edema, but she has severe pain bilateral lower extremity. There is no focal weakness. PSYCH: She is depressed because of her chronic pain. All other symptoms within normal limit. MEDICATION LIST: She was on Tylenol No. 3, but that is not helping her pain. She is on aspirin. She is on hydralazine 25 t.i.d., levothyroxine, Synthroid 50, lisinopril 40 daily, nicotine patch, and paroxetine. She is on currently, Zofran, Zosyn, vancomycin, and lisinopril. LABORATORY DATA: Reviewed. Wound cultures and blood cultures are pending. Her white count on admission was 7.6, today 12.3, hemoglobin 12.0, hematocrit 36, and her platelets 318.7. She had a chest x-ray, which showed no acute finding. PHYSICAL EXAMINATION: GENERAL: She is currently alert and oriented, does not seem to be in acute distress. VITAL SIGNS: Temperature 99.3, heart rate 85, respiration 18, and blood pressure 146/87. HEENT: Normocephalic. Not icteric. NECK: Supple. No JVD. No lymphadenopathy. No thyromegaly. CHEST: Clear bilateral. HEART: S1 and S2. No S3, S4, or murmur. ABDOMEN: Soft. Bowel sounds present. No tenderness. No hepatosplenomegaly. EXTREMITIES: On the right leg, there is erythema. There is edema. There are several superficial ulcers deep to subcutaneous tissue. This was incised to 1 to 2 cm. There is at least 3 of them anteriorly. Some drainage noted. IMPRESSION: 1. Infection of the left leg and cellulitis. 2. Venous stasis ulcers, infected. 3. History of smoking, quit recently. 4. Concerned about peripheral vascular disease. 5. Severe neuropathy. 6. Nicotine addiction, quit. 7. Hypothyroidism. PLAN: 1. Discussed with the patient at length. I think the ulcers need to be debrided. It could be done chemically or surgically. 2. She would need elastic stocking with compression stocking to be applied on. 3. The wound needs to be cleaned and then local antibacterial. 4. We will consult Wound Care. 5. Severe pain neuropathy, consult pain management perhaps. 6. From Infectious Disease point of view, agree with vancomycin and Zosyn. We will need to monitor the vancomycin trough and also on the chemistry panel to assess her kidney function. 7. Discussed with the patient. This is going to be a prolonged course of treatment and therapy. Compliant is important. 8. Recommend PICC line. 9. Discussed with Internal Medicine. Discussed with the patient. MD KWAME Hidalgo/EBER /[id number]
[2019-05-07 20:45] VITALS: BP 154/73
[2019-05-07 21:00] VITALS: BP 154/73
[2019-05-08] VITALS (8 sets, daily range): BP systolic 120–166; BP diastolic 58–77
[2019-05-08] MEDS: HYDROMORPHONE 2MG/ML 2 MG/ML ML IV PRN ×5 (00:15→20:40)
[2019-05-08] MEDS: SODIUM CHLORIDE 0.9% 1000ML 1,000 ML IV SCH ×2 (03:02)
[2019-05-08 03:18] LABS: BASOPHILS # (AUTO) 0.1 (0.0-0.1); EOSINOPHILS # (AUTO) 0.2 (0.0-0.4); EOSINOPHILS % 2.2 % (0.0-6.0); HEMATOCRIT 32.7 % (34.2-44.1); HEMOGLOBIN 10.4 g/dL (12.0-16.0); LYMPHOCYTES # (AUTO) 0.8 (1.0-3.2); LYMPHOCYTES % 8.1 % (18.0-39.1); MEAN CORPUSCULAR HEMOGLOBIN 32.5 pg (28-32); MEAN CORPUSCULAR HGB CONC 31.8 g/dL (31-35); MEAN CORPUSCULAR VOLUME 102.2 fL (81-99); MONOCYTES # (AUTO) 0.8 (0.2-0.8); MONOCYTES % 8.4 % (4.4-11.3); NEUTROPHILS # (AUTO) 7.6 (2.1-6.9); NEUTROPHILS % 79.7 % (38.7-80.0); PLATELET COUNT 180 x10e3/uL (140-360); RED CELL DISTRIBUTION WIDTH 13.6 % (11.7-14.4)
[2019-05-08 03:50] LABS: BLOOD UREA NITROGEN 7 mg/dL (7-26); BUN/CREATININE RATIO 11 (6-25); CALCIUM 7.8 mg/dL (8.4-10.2); CARBON DIOXIDE 24 mmol/L (22-29); CHLORIDE 100 mmol/L (98-107); CREATININE, SERUM 0.62 mg/dL (0.57-1.11); EST GLOMERULAR FILTRATION RATE > 60 ML/MIN (60-); GLUCOSE 101 mg/dL (74-118); SODIUM 130 mmol/L (136-145)
[2019-05-08 04:38] LABS: B-TYPE NATRIURETIC PEPTIDE2 268.3 pg/mL (0-100)
[2019-05-08 04:47] LABS: FREE T4 (FREE THYROXINE) 0.88 ng/dL (0.8-1.8); THYROID STIMULATING HORMONE 1.882 uIU/mL (0.350-4.940)
[2019-05-08] MEDS: PIPER-TAZ 3.375 GM 50 ML IV SCH ×4 (06:00→18:00)
[2019-05-08] MEDS: LEVOTHYROXINE SODIUM 25 MCG TABLET PO SCH (06:30)
[2019-05-08] MEDS: VANCOMYCIN 750MG/NS 150ML IVPB 150 ML IV SCH ×2 (09:07→20:30)
[2019-05-08] MEDS: HYDRALAZINE HCL 25 MG TAB PO SCH ×3 (09:08→20:30)
[2019-05-08] MEDS: LISINOPRIL 20 MG TAB PO SCH (09:08)
[2019-05-08] MEDS: PAROXETINE HCL 20 MG TAB PO SCH (09:08)
[2019-05-08] MEDS: COLLAGENASE OINTMENT 30 GM TUBE TP SCH (09:12)
[2019-05-08] MEDS: GABAPENTIN 300 MG CAP PO SCH ×3 (10:00→20:30)
--- NOTE | 2019-05-08 11:00 | NUR ---
Verma catheter placed for urinary retention. Pt had post void residual of 571. Dr. Martins was consulted.
[2019-05-08] MEDS ORDERED: FENTANYL 50 MCG/HR PATCH TOP SCH (12:15)
--- NOTE | 2019-05-08 14:14 | Consultation ---
DATE OF CONSULTATION: 05/08/2019 Cardiology Consultation CONSULTING PHYSICIAN: Vadim Salvador MD, Interventional Cardiology. REASON FOR CONSULTATION: Leg wounds. HISTORY OF PRESENT ILLNESS: Ms. Lockett is a pleasant 78-year-old woman with history of depression, hypertension, long standing history of smoking one pack a year for over 20 years, quit 3 months ago, presents with wounds to left more than right lower extremities, onset since December, for which she has been undergoing wound care at outside facility for patient with worsening of wounds and refractory pain and discomfort. Yesterday, she noted maggots at the left leg wounds and that had significantly concerned as she was attempting her home wound care. Reason why she decided to proceed via the emergency department to this institution for further evaluation. She has been seen by Infectious Disease and antibiotics being initiated. Wound care is being also addressed at this point. She has chronic lower extremity edema and hyperpigmented skin changes to both legs. She recently started noticing worsening of her wound to the right medial malleolus too. She has wounds in both medial malleolus as well as the anterior distal half of the left banegas. She denies any chest discomfort or shortness of breath. REVIEW OF SYSTEMS: A 12-system review is negative except for as noted above. PAST MEDICAL HISTORY: Significant for hypertension and leg wounds as well as leg edema. PAST SURGICAL HISTORY: Describes previous wound debridements at outside facility. SOCIAL HISTORY: Smoker, one pack a day for over 20 years, quit 3 months ago. Denies alcohol or drug abuse. FAMILY HISTORY: Significant for hypertension. PHYSICAL EXAMINATION: VITAL SIGNS: Temperature 98.8, heart rate 103, respiratory rate 16, blood pressure 147/67, and O2 saturation 94%. BMI is 20.7. GENERAL: In no acute distress, alert. NECK: No JVD or carotid bruits. CARDIOVASCULAR: Regular rate and rhythm, normal S1, S2, no S3 or S4, no murmurs. ABDOMEN: Soft, nontender, nondistended. Bowel sounds positive. EXTREMITIES: With edema 1+ both lower extremities. Hyperpigmented changes to both lower half legs. Right medial malleolus ulceration with irregular borders and erythematous base with fibrinous material covering and left medial malleolus ulcer also large with irregular border and significant fibrinous material and some purulent secretion. Has additional wounds several in the anterior and lateral aspect of the distal left leg also of similar description. Has palpable dorsalis pedis pulses bilaterally and nonpalpable posterior tibial pulses bilaterally. MEDICATIONS: Reviewed. On Zosyn, vancomycin, levothyroxine, hydromorphone, lisinopril 40 mg daily, gabapentin 300 mg t.i.d., paroxetine 20 mg daily. LABORATORY DATA: Studies reviewed. Sodium 130, potassium 4, bicarbonate 20, BUN 7, creatinine 0.6, glucose 101. White blood cells 9.5, hemoglobin 10.4, platelets 180. AST 20, ALT 13, alkaline phosphatase 105, total bilirubin 0.5. ASSESSMENT: 1. A 78-year-old woman with venous stasis and infected wounds to left more than right lower extremity, large ulcerations with painful associated component. 2. Hypertension. 3. Neuropathy. 4. Anemia. 5. Former smoker. RECOMMENDATIONS: Arterial and venous Doppler with insufficiency protocol have been ordered and are pending to be done today. We will review and give further recommendations depending on findings. I agree at this point with wound care and adequate pain management. auto transmission specialist would be of significant help in assistance with optimal care. I do suspect a component of neuropathy. I also suspect a mixed component of arterial and venous disease. Further recommendations depending on Dopplers. She does have a history of hypertension and smoking are significant risk factors for PAD and abnormal pulses are noted on exam. Further recommendations to follow. Thank you for the opportunity to participate in the care of Ms. Stratton. We will follow closely with you. MD RADHA Stallworth/EBER /[id number]
--- NOTE | 2019-05-08 16:32 | NUR ---
Nutrition Intervention Note RD Recommendation(s) for Physician: 1.Continue with Cardiac Diet 2.Recommend Ensure BID with meals for additional energy and protein Plan of Care: RD following, monitoring for tolerance and adequacy, ONS Nutrition reason for involvement: RN Consult 05/07 RD Assessment (05/08) Pt is a 78 y/o F admitted for cellulitis of the left leg, venous stasis ulcer infected with severe pain . Patient family at bedside who provide additional history for patient. Per patient and daughter UBW of 100 lbs for the past 6 months. Patients daughter reports patient has slowly been losing weight unintentionally due to current health status. Patient stated I am not eating, confirming poor appetite and intake x 1 week. Patient meal tray at bedside appeared to have consumed 50% of meal. Pt denied any N/V/D/C or difficulties with chewing or swallowing. Discussed addition of ONS for additional nutrition, patient was open to trying Ensure with meals. RDN to follow and monitor as needed. Principal Problems/Diagnoses: Cellulitis and statis leg ulcer PMH: Hypertension, smoker, history of hypothyroidism, history of venous stasis, history of neuropathy GI: Abdomen soft, flat and non tender Skin: Non-pressure related infected wound on left leg Labs: (05/08) Sodium 130 , Ca 7.8 Meds: (05/08) Zofran, Vancomycin HCl, Santyl, Fentanyl Ht: 64in Wt: 112 lbs on bed scale, patient and family report weight of ~ 100 lbs BMI: 19.2 kg/m2 IBW: 120lbs +/- 10% Malnutrition Evaluation (05/08) The patient meets criteria for MILD protein-calorie malnutrition. Energy intake: <50% of estimated energy requirements for >5 days Weight loss: 1-2% in 1 week (Acute) Fat loss: Mild, slight hollowing of orbital region surrounding eyes Muscle loss: Mild, some depression of temporal Supporting Evidence: Fluid accumulation: Mild localized to lower extremities Functional Status: unable to evaluate Nutrition Prescription (Diet Order): Cardiac Diet Estimated Nutritional Needs: 1136-1591calories/day ( 25-35 kcal/kg of reported weight) 45-68 g protein/day (1-1.5g pro/kg of reported weight) Diet Adequacy: Not meeting calorie needs, not meeting protein needs Diet Education Needs Assessment: Diet education not indicated. Nutrition Care Level: LOW Nutrition Diagnosis: Inadequate oral intake related to poor appetite as evidenced by patient reports and observations of poor appetite, suboptimal oral intake and 50% consumption of meals. Goal: Patient will meet 75-100% of estimated needs by follow up Progress: Progressing Interventions: -Commercial beverage, Multivitamin/mineral supplement therapy Monitoring/Evaluation: -Total energy intake, Total protein intake, Liquid supplement, Weight change Signed: Blanca Harris, MS, RDN, LD
--- NOTE | 2019-05-08 17:29 | Consultation ---
DATE OF CONSULTATION: 05/08/2019 Urology Consultation REASON FOR CONSULTATION: Urinary retention. HISTORY OF PRESENT ILLNESS: Chayito Lockett is a 78-year-old woman, who has had a bladder suspension over 30 years ago, when she was at a relatively young age, this was done by a urologist. The patient was doing very well for many years until recent months when she started having urge-type urinary incontinence and voiding for small volumes. The patient was found to be in urinary retention for over 570 mL and a Verma catheter was placed. She is currently hospitalized for ulcers of the lower extremities due to venous stasis. The patient denies problems with urinary tract infections or urolithiasis. She has not seen a urologist in 30 years. PAST MEDICAL AND SURGICAL HISTORY: 1. 3, para 3, by vaginal delivery. 2. Status post total abdominal hysterectomy, bilateral salpingo-oophorectomy. 3. Status post appendectomy. 4. Status post tonsillectomy and adenoidectomy. 5. Multiple leg debridements. 6. Hypertension. 7. History of heavy smoking, quit 2 to 3 months ago. 8. Hypothyroidism. 9. Venous stasis. 10. Neuropathy. 11. Chronic pain. 12. Right total knee arthroplasty. 13. Status post bilateral hand surgery. 14. Status post right hip surgery. 15. ITP. 16. Depression. FAMILY HISTORY: Noncontributory to the active urological problems. SOCIAL HISTORY: The patient recently quit smoking after smoking one pack per day for many years. She denies ethanol drug use. She works in a [employer]. REVIEW OF SYSTEMS: Discussed as above in the history of present illness and past medical history, otherwise negative for all systems. PHYSICAL EXAMINATION: GENERAL: Very pleasant woman, lying in bed, in no apparent distress. VITAL SIGNS: She is currently afebrile. Vital signs currently stable. ABDOMEN: Soft, nondistended, nontender without costovertebral angle tenderness. Kidneys not palpable without hepatosplenomegaly. No obvious evidence of hernia. GENITOURINARY: Normal external female genitalia. The Verma catheter in place draining clear urine out. The nurse was present for the entire encounter with the patient in the room. For the remaining physical examination systems, please refer to the admission history and physical on the chart. LABORATORY STUDIES: White blood cell count is 9530, it was higher than that earlier. Hemoglobin 10.4, platelets 180,000. The patient's creatinine was 0.62. Her calcium was low. Urinalysis significant for pyuria, but urine culture is negative. ASSESSMENT: 1. Urinary retention. 2. Urge incontinence. 3. Leukocytosis, improved. 4. Anemia. 5. Hyponatremia with sodium of 130. 6. Hypocalcemia. 7. Possible urinary tract infection, not proven by culture. 8. Verma catheter in situ. PLAN: 1. Leave the Verma catheter in place at the present time. 2. Followup for urodynamics test in the office. 3. Continue multidisciplinary care. 4. Hematological and electrolyte abnormalities per primary team. Thank you much for involving us in care of your patient. We will be happy to follow along with you as well as an outpatient. MD SHIVAM Cooper/EBER /[id number]
--- NOTE | 2019-05-08 19:05 | NUR ---
BS rounds completed with morning nurse. Pt sleepy, alert to name call. No s/s of pain at this time. Call vences within reach. Will continue to monitor.
--- NOTE | 2019-05-08 19:50 | NUR ---
Pt elevated temp 102.1, HR 129. Pt restless, confused "are people lined up outside". Skin warm to touch. Removed blanket and applied cool towel to forehead. New orders received from Dr. Parra: Tylenol 650mg, labs in am, CXR, BC x1, D/C Zosyn, start cefepime q24hrs and Flagyl q8hrs.
[2019-05-08] MEDS ORDERED: ACETAMINOPHEN 325 MG TAB PO PRN (20:00)
--- NOTE | 2019-05-08 21:02 | Diagnostic Imaging Report ---
EXAMINATION: CHEST SINGLE (PORTABLE) INDICATION: Fever COMPARISON: Chest radiograph 05/06/2019 FINDINGS: AP view TUBES and LINES: None. LUNGS/PLEURA: New hazy opacity in the right mid and lower lung and hazy opacity in the left lower lobe. The hemidiaphragms are silhouetted. Trace fluid in the right minor fissure. Central peribronchial cuffing. Increased interstitial lung markings. No pneumothorax. HEART AND MEDIASTINUM: Cardiac size is mildly enlarged. Aortic arch calcifications. BONES AND SOFT TISSUES: Unchanged. UPPER ABDOMEN: No free air under the diaphragm. IMPRESSION: New bilateral lower lobe hazy opacities right greater than left, could be due to pneumonia or pleural effusions. Mild cardiomegaly and pulmonary interstitial edema. Signed by: Davey Broussard DO on 05/08/2019 8:58 PM
[2019-05-08] MEDS: CEFEPIME 1GM/NS 0.9% 50 ML 50 ML IV SCH (21:50)
[2019-05-08] MEDS: METRONIDAZOLE 500MG/NS 100ML 100 ML IV SCH (22:45)
[2019-05-09] VITALS (7 sets, daily range): BP systolic 97–165; BP diastolic 55–73
[2019-05-09 03:59] LABS: BASOPHILS # (AUTO) 0.1 (0.0-0.1); BASOPHILS % 1.2 % (0.0-1.0); EOSINOPHILS # (AUTO) 0.2 (0.0-0.4); EOSINOPHILS % 2.3 % (0.0-6.0); HEMATOCRIT 36.7 % (34.2-44.1); HEMOGLOBIN 11.8 g/dL (12.0-16.0); LYMPHOCYTES # (AUTO) 0.9 (1.0-3.2); LYMPHOCYTES % 10.8 % (18.0-39.1); MEAN CORPUSCULAR HEMOGLOBIN 32.9 pg (28-32); MEAN CORPUSCULAR HGB CONC 32.2 g/dL (31-35); MEAN CORPUSCULAR VOLUME 102.2 fL (81-99); MONOCYTES # (AUTO) 1.1 (0.2-0.8); MONOCYTES % 12.6 % (4.4-11.3); NEUTROPHILS % 72.5 % (38.7-80.0); PLATELET COUNT 139 x10e3/uL (140-360); RED BLOOD COUNT 3.59 x10e6/uL (3.6-5.1); RED CELL DISTRIBUTION WIDTH 13.2 % (11.7-14.4)
[2019-05-09 04:24] LABS: ANION GAP 13.3 mmol/L (8-16); BLOOD UREA NITROGEN 5 mg/dL (7-26); BUN/CREATININE RATIO 8 (6-25); CALCIUM 8.3 mg/dL (8.4-10.2); CARBON DIOXIDE 25 mmol/L (22-29); CHLORIDE 98 mmol/L (98-107); EST GLOMERULAR FILTRATION RATE > 60 ML/MIN (60-); GLUCOSE 88 mg/dL (74-118); MAGNESIUM 1.9 MG/DL (1.3-2.1); POTASSIUM 4.3 mmol/L (3.5-5.1); SODIUM 132 mmol/L (136-145)
[2019-05-09] MEDS: HYDROMORPHONE 2MG/ML 2 MG/ML ML IV PRN (04:25)
[2019-05-09] MEDS: METRONIDAZOLE 500MG/NS 100ML 100 ML IV SCH ×3 (06:00→22:00)
[2019-05-09] MEDS: LEVOTHYROXINE SODIUM 25 MCG TABLET PO SCH (06:30)
--- NOTE | 2019-05-09 07:43 | NUR ---
Pt received in bed with eyes closed. Easily arouses with verbal stimuli. Verma in place and draining light yellow clear urine.
[2019-05-09] MEDS ORDERED: CEFEPIME HCL 1 GM VIAL IV SCH (09:00)
[2019-05-09] MEDS: VANCOMYCIN 750MG/NS 150ML IVPB 150 ML IV SCH ×2 (09:00→20:00)
--- NOTE | 2019-05-09 10:26 | Diagnostic Imaging Report ---
CT chest without enhancement CPT code: 26600 INDICATION: Fever, evaluate for pneumonia TECHNIQUE: Thin collimation axial images obtained from the thoracic inlet to the level of the diaphragm without intravenous contrast. Dose reduction techniques used: Automated exposure control, adjustment of the mAs and/or kVp according to patient size, standardized low-dose protocol, and/or iterative reconstruction technique. RADIATION DOSE: Total DLP: 315.68 mGy*cm Estimated effective dose: (DLP x 0.015 x size factor) mSv CTDIvol has been reviewed. It is below the limits set by the Radiation Protocol Committee (RPC). COMPARISON: Chest x-ray 05/08/2019. CT chest 01/29/2019 CHEST FINDINGS: Lymph nodes: No enlarged axillary or subclavicular lymph nodes. Precarinal hilar lymph node measures 7 mm in short axis. Evaluation of the lennie is compromised given the lack of intravenous contrast. Thyroid: Normal in size without mass in the visualized parenchyma.. Mediastinum: Calcifications throughout the coronary arteries and aorta. Main pulmonary artery measures 2.9 cm. The ascending aorta measures 2.9 cm. Trace pericardial effusion. The esophagus is collapsed. Lungs: Right: Centrilobular emphysema. Posterior right pleural effusion measures 4 cm. There is overlying atelectasis. Small foci of pneumonia cannot be excluded. Left/Pleura: Centrilobular emphysema. Posterior layering pleural effusion measures 2 cm with overlying atelectasis. No infiltrate in the aerated lung. Airways: Clear. ABDOMEN FINDINGS: Calcifications of the abdominal aorta and its tributaries. No mass or lymphadenopathy. Bones: Superior endplate compression deformity of T12 of approximately 15%. This is stable. There is a tiny protrusion of the posterior superior endplate cortex into the spinal canal. No new compression deformities. Healed right rib fractures appear stable. Soft tissues: Unremarkable. IMPRESSION: 1. Right pleural effusion with atelectasis. Small foci of underlying pneumonia cannot be excluded. 2. Emphysema. 3. Bilateral pleural effusions. 4. Atherosclerosis. 5. Stable compression deformity of T12. Signed by: Dr. Maryuri Logan MD on 05/09/2019 10:23 AM
[2019-05-09] MEDS: GABAPENTIN 300 MG CAP PO SCH ×3 (10:31→21:00)
[2019-05-09] MEDS: HYDRALAZINE HCL 25 MG TAB PO SCH ×3 (10:31→21:00)
[2019-05-09] MEDS: COLLAGENASE OINTMENT 30 GM TUBE TP SCH (10:32)
[2019-05-09] MEDS: PAROXETINE HCL 20 MG TAB PO SCH (10:32)
[2019-05-09] MEDS: LISINOPRIL 20 MG TAB PO SCH (10:32)
--- NOTE | 2019-05-09 13:13 | Progress Note ---
DATE: 05/09/2019 Cardiology Progress Note SUBJECTIVE: Crying about her frustration on her health issues, uncertain about making decisions today. We discussed extensively abnormal Doppler ultrasounds and my concern for underlying severe peripheral vascular disease, particular [id number] and likely affecting her wound healing. I offered angiography, the patient is unclear whether or not to proceed at this point. We will revisit at a later date during this admission. OBJECTIVE: VITAL SIGNS: Temperature 97.2, heart rate 81, blood pressure 165/73, respiratory rate 18, O2 saturation 97%, BMI 20.7. GENERAL: No acute distress, alert. NECK: No JVD. CHEST: Clear to auscultation. CARDIOVASCULAR: Regular rate and rhythm, S1, S2. ABDOMEN: Soft, nontender. EXTREMITIES: With edema 1+ and wounds to right more than left lower extremities covered with dressing. Abnormal pedal and dorsalis pedis pulses bilaterally. CARDIOVASCULAR MEDICATIONS: Reviewed. Hydralazine 25 mg t.i.d., lisinopril 40 mg daily, cefepime, vancomycin, metronidazole. STUDIES: Reviewed. Sodium 132, potassium 4.3, chloride 98, bicarbonate 25, BUN 5, creatinine 0.6, glucose 88. White blood cells 8.3, hemoglobin 11.8, platelets 139. AST 20, ALT 13, alkaline phosphatase 105. ASSESSMENT: A 78-year-old woman presents with non-healing and painful wounds to right and left lower extremities, particularly in the left lower half of leg in the setting of underlying suspected venous insufficiency and peripheral arterial disease with wound over infection. RECOMMENDATIONS: 1. Pain control. 2. Blood pressure is being optimized. Continue to adjust medications accordingly. 3. Peripheral angiography and possible endovascular revascularization strongly encouraged. We will revisit with the patient during this visit and confirm whether or not patient is agreeable to this. 4. Wound care and antibiotics. 5. Further recommendations to follow. MD RADHA Stallworth/EBER /[id number]
--- NOTE | 2019-05-09 17:03 | Consultation ---
DATE OF CONSULTATION: Wound Care Consultation. DICTATING FOR: Dr. Omalley. Thank you Dr. Parks for the consult and wound care consultation was called for bilateral lower extremity ulcers. HISTORY OF PRESENT ILLNESS: She is a 78-year-old female with a history of ITP, hypertension, hypothyroidism, depression, and was admitted from the ER from having some bilateral lower extremity wounds, actually more on the left leg. The patient says she has these ulcers, it seems much and she has been following up at [facility]. She states she did have a workup done for arterial and venous studies and they told her that it was normal and she says that she did advise her to put Santyl, but she was not able to afford it, so she was putting Hydrofera Blue and she states she did not have a biopsy, but she did have some debridement done. But she was not happy with the progress also. Her main complaint is excruciating pain in both lower extremities, left more than the right and no fever, no chills, no rigors and she is to be heavy smoker. She stopped 3 months ago. REVIEW OF SYSTEMS: All other systems reviewed, no other complaints. PAST MEDICAL HISTORY: Hypertension, hypothyroidism, history of ITP. PAST SURGICAL HISTORY: She had appendectomy, hysterectomy, right TKA and hand surgery and hip surgery. FAMILY HISTORY: Significant for father, who has diabetes mellitus. SOCIAL HISTORY: Social alcohol and she is to be heavy smoker, but she stopped it since December according to her. PHYSICAL EXAMINATION: GENERAL: Thin built female, not in any acute distress, but complaining of pain whenever we touch her. VITAL SIGNS: Temperature is 97.2, pulse is 81, respirations 18, blood pressure 165/73. HEENT: PERRLA. NECK: Supple. No lymphadenopathy. No bruits. CHEST: Equal air entry bilaterally. No added sounds. CVS: S1, S2 normal. No murmur, no gallop. ABDOMEN: Scaphoid soft. Nontender. No organomegaly. EXTREMITIES: There is no edema. The left lower extremity, she has increased warmth and redness present in the lower extremity. The patient has multiple wounds. The wounds as follows. Left anterior banegas measuring 3.5 x 1.5 x 0.3 cm with 90% slough, left lateral banegas 3 x 1.5 x 0.3 cm with 50% slough and 50% pink, left medial leg 6.5 x 3 x 0.8 with 90% slough, left lateral leg 13.5 x 5.5 x 0.5, it is 50% pink, 50% slough, right lower extremity, right upper ankle is 1.2 x 2 x 0.1, 100% eschar right medial posterior ankle 1 x 3.5 x 0.2, 80% slough and 20% granulation, right lower ankle 0.7 x 0.6 x 0.1, 90% slough and with minimal drainage. Peripheral pulses were decreased. The patient has extreme atrophic present. LABORATORY DATA: WBC count is 8.3, hemoglobin 11.8, hematocrit 36, MCV is 102, platelet count is 139, it did decrease from 285. Sodium is 132, BUN and creatinine are normal. Her BNP is 396, albumin is only 2.6. Thyroid function test are normal and wound culture is growing staph aureus, but culture sensitivity pending and . It is almost nearly pansensitive. 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 Agree with the Santyl. We will add adaptic to it because she was having a lot of pain while taking of the dressing and patient definitely needs a debridement and tissue biopsy probably to rule out other connective tissue disorder like a pyoderma as her pain is out of proportion to the ulcers and agree with the arterial and venous Doppler and hypoalbuminemia. The patient needs a nutritional support. Thank you, Dr. Parks for the consult and Dr. Magdaleno will follow the patient from tomorrow. MD LEXII Portillo/EBER /[id number]
--- NOTE | 2019-05-09 19:05 | NUR ---
Completed BS rounds with morning nurse. Pt sleepy and oriented to name. No s/s of pain at this time. Call vences within reach. Will continue to monitor.
[2019-05-09] MEDS: CEFEPIME 1GM/NS 0.9% 50 ML 50 ML IV SCH (21:00)
[2019-05-10] VITALS (7 sets, daily range): BP systolic 89–121; BP diastolic 50–66
[2019-05-10 03:42] LABS: BASOPHILS # (AUTO) 0.1 (0.0-0.1); EOSINOPHILS # (AUTO) 0.1 (0.0-0.4); EOSINOPHILS % 1.4 % (0.0-6.0); HEMATOCRIT 34.2 % (34.2-44.1); HEMOGLOBIN 10.9 g/dL (12.0-16.0); LYMPHOCYTES # (AUTO) 1.1 (1.0-3.2); LYMPHOCYTES % 11.9 % (18.0-39.1); MEAN CORPUSCULAR HEMOGLOBIN 32.3 pg (28-32); MEAN CORPUSCULAR HGB CONC 31.9 g/dL (31-35); MEAN CORPUSCULAR VOLUME 101.5 fL (81-99); MONOCYTES # (AUTO) 1.2 (0.2-0.8); MONOCYTES % 13.3 % (4.4-11.3); NEUTROPHILS # (AUTO) 6.6 (2.1-6.9); NEUTROPHILS % 71.7 % (38.7-80.0); PLATELET COUNT 177 x10e3/uL (140-360); RED BLOOD COUNT 3.37 x10e6/uL (3.6-5.1); RED CELL DISTRIBUTION WIDTH 13.2 % (11.7-14.4)
[2019-05-10 04:22] LABS: ANION GAP 14.8 mmol/L (8-16); CALCIUM 8.7 mg/dL (8.4-10.2); POTASSIUM 3.8 mmol/L (3.5-5.1)
[2019-05-10 04:24] LABS: CREATININE, SERUM 1.04 mg/dL (0.57-1.11)
[2019-05-10] MEDS: METRONIDAZOLE 500MG/NS 100ML 100 ML IV SCH ×3 (06:00→22:00)
[2019-05-10] MEDS: LEVOTHYROXINE SODIUM 25 MCG TABLET PO SCH (06:39)
--- NOTE | 2019-05-10 07:40 | NUR ---
PATIENT IN STABLE CONDITION WITH NO S/S OF RESPIRATORY DISTRESS. FENTANYL PATCH APPLIED. SMITH AND DIAPER APPLIED. BED ALARM ON. CALL LIGHT IS WITHIN REACH, PATIENT INSTRUCTED TO CALL FOR ASSISTANCE NEEDED.
--- NOTE | 2019-05-10 08:02 | NUR ---
RECEIVED ORDER FOR STAT VANCO TROUGH
[2019-05-10] MEDS: GABAPENTIN 300 MG CAP PO SCH ×3 (08:43→20:53)
[2019-05-10] MEDS: PAROXETINE HCL 20 MG TAB PO SCH (08:43)
[2019-05-10] MEDS: HYDRALAZINE HCL 25 MG TAB PO SCH (08:43)
[2019-05-10] MEDS: LISINOPRIL 20 MG TAB PO SCH (08:44)
[2019-05-10] MEDS ORDERED: COLLAGENASE 5 GM TUBE TOP SCH (09:00)
[2019-05-10] MEDS: VANCOMYCIN 750MG/NS 150ML IVPB 150 ML IV SCH ×2 (09:51→20:00)
[2019-05-10] MEDS: COLLAGENASE OINTMENT 30 GM TUBE TP SCH (10:02)
[2019-05-10] MEDS ORDERED: FUROSEMIDE INJ 10 MG/ML 4 ML VIAL IV NR (10:15)
[2019-05-10] MEDS ORDERED: HYDROMORPHONE 2MG/ML 2 MG/ML ML IV PRN (10:45)
[2019-05-10] MEDS ORDERED: LIDOCAINE HCL 2% 2 ML AMP INJ ONE (13:45)
--- NOTE | 2019-05-10 14:21 | NUR ---
CALLED TO INFORM N.P. OF PATIENT'S CURRENT BP OF 104/57- N.P. ORDERED TO D/C HYDRALAZINE.
--- NOTE | 2019-05-10 19:15 | NUR ---
patient received awake, lying quietly in bed. vss. no c/o pain noted. 02/2l/nc in use. respirations even and unlabored. pm assessment complete. close monitoring continues.
--- NOTE | 2019-05-10 19:29 | NUR ---
PATIENT IN STABLE CONDITION WITH NO S/S OF RESPIRATORY DISTRESS. NO PAIN INDICATED. SMITH INTACT AND DRAINING. BED ALARM ON. CALL LIGHT IS WITHIN REACH, PATIENT INSTRUCTED TO CALL FOR ASSISTANCE NEEDED. BEDSIDE REPORT GIVEN TO ONCOMING NURSE.
[2019-05-10] MEDS: CEFEPIME 1GM/NS 0.9% 50 ML 50 ML IV SCH (21:00)
--- NOTE | 2019-05-10 21:10 | Progress Note ---
DATE: 05/10/2019 Cardiology Progress Note SUBJECTIVE: Denies any chest pain or shortness of breath, leg discomfort somewhat improved with medications. Discussed indications, alternatives, risks, and benefits for peripheral angiography and possible endovascular intervention for PAD. The patient is agreeable and would like to proceed during this admission. She is scheduled for biopsy of wounds tomorrow. OBJECTIVE: VITAL SIGNS: Reviewed. Temperature 97.4, heart rate 86, blood pressure 114/66, respiratory rate 18, and O2 saturation 95%. BMI 20.7. GENERAL: In no acute distress. Alert. NECK: No JVD. CHEST: Clear to auscultation. CARDIOVASCULAR: Regular rate and rhythm. Normal S1 and S2. ABDOMEN: Soft. EXTREMITIES: 1+ edema. Right leg with several wounds. Left leg with medial malleolus wound. Abnormal pedal and dorsalis pedis pulses. CARDIOVASCULAR MEDICATIONS: Reviewed. Furosemide 40 mg x1, on vancomycin, metronidazole, cefepime antibiotics, lisinopril 40 mg daily, and hydralazine 25 mg t.i.d. STUDIES: Reviewed. Sodium 132, potassium 3.8, chloride 98, bicarbonate 23, BUN 8, creatinine 1.04, and glucose 126. White blood cells 9.1, hemoglobin 10.9, and platelets 177. AST 20, ALT 13, total bilirubin 0.5, and alkaline phosphatase 105. ASSESSMENT: A 78-year-old woman with history of smoking, presents with nonhealing wound to lower extremities, right foot and left in the setting of abnormal Doppler ultrasounds concerning for peripheral vascular disease, underlying component of venous insufficiency. RECOMMENDATIONS: 1. Continue with antibiotic for over infection. 2. Continue wound care. 3. Proceed with angiography and possible endovascular revascularization likely Friday a.m. 4. Continue rest of cardiovascular medications. MD RADHA Stallworth/EBER /[id number]
[2019-05-11] VITALS (7 sets, daily range): BP systolic 116–147; BP diastolic 59–80
[2019-05-11] MEDS: LEVOTHYROXINE SODIUM 25 MCG TABLET PO SCH (05:45)
[2019-05-11] MEDS: METRONIDAZOLE 500MG/NS 100ML 100 ML IV SCH (05:45)
[2019-05-11] MEDS ORDERED: LIDOCAINE HCL 2% LOCAL 20 ML VIAL INJ ONE (07:00)
--- NOTE | 2019-05-11 07:30 | NUR ---
PATIENT IN STABLE CONDITION WITH NO S/S OF RESPIRATORY DISTRESS. BILATERAL DRESSINGS ARE DRY AND INTACT. SMITH INTACT AND DRAINING. 02 APPLIED. CALL LIGHT IS WITHIN REACH, PATIENT INSTRUCTED TO CALL FOR ASSISTANCE NEEDED.
[2019-05-11] MEDS: GABAPENTIN 300 MG CAP PO SCH ×3 (08:21→20:10)
[2019-05-11] MEDS: VANCOMYCIN 750MG/NS 150ML IVPB 150 ML IV SCH (08:21)
[2019-05-11] MEDS: PAROXETINE HCL 20 MG TAB PO SCH (08:21)
[2019-05-11] MEDS: LISINOPRIL 20 MG TAB PO SCH (08:22)
--- NOTE | 2019-05-11 10:20 | NUR ---
PT WOULD LIKE [facility], THEY ARE NOT IN NETWORK, DOES NOT WANT TO PAY OUT OF NETWORK BENEFITS WILL CHOOSE [facility], FILED CHOICE IN CHART, ABLE TO GET REP TO [facility] FACILITY SALES AND ADMIN PACKET.
[2019-05-11] MEDS: HYDROCODONE/APAP 7.5MG-325MG 1 EA TAB PO PRN (10:24)
[2019-05-11] MEDS: COLLAGENASE OINTMENT 30 GM TUBE TP SCH (10:58)
--- NOTE | 2019-05-11 11:11 | NUR ---
BIOPSY AND CULTURE COLLECTION DONE BY DR. WATKINS. PRESSURE APPLIED TO BIOPSY AREAS. WOUND CARE DRESSING COMPLETED.
[2019-05-11] MEDS: CEFTRIAXONE SOD 2 GM/NS 100 ML 100 ML IV SCH (11:42)
[2019-05-11] MEDS: MORPHINE SULFATE 2 MG/ML SYR 1ML IV PRN (11:42)
--- NOTE | 2019-05-11 13:20 | Operative Report ---
DATE OF PROCEDURE: SURGEON: Khushbu Omalley MD PROCEDURE: Skin biopsy. INDICATIONS: A 78-year-old female patient has chronic nonhealing ulcer to bilateral lower extremities more than four months. Vascular workup for PVD is normal. PROCEDURE IN DETAIL: After explaining the procedure and obtaining consent, I injected 2% Xylocaine. After proper anesthetic, I used #4 punch curette, did a punch biopsy and sent for biopsy, immunofluorescence and tissue culture. There was minimal bleeding controlled with pressure. Wound cleaned with normal saline. I applied Santyl, Hydrogel, 4x4 Kerlix, and tape. MD PARAG Rooney/MODL /[id number]
[2019-05-11] MEDS: CLINDAMYCIN 600MG / 50ML 50 ML IV SCH ×2 (13:21→17:43)
[2019-05-11] MEDS: SODIUM CHLORIDE 0.9% 1000ML 1,000 ML IV SCH ×2 (15:40→22:53)
[2019-05-11] MEDS: ASPIRIN 81 MG CHEW TAB PO SCH (15:41)
--- NOTE | 2019-05-11 17:51 | Progress Note ---
DATE: 05/11/2019 Cardiology Progress Note SUBJECTIVE: No new complaints today. OBJECTIVE: VITAL SIGNS: Temperature 97.6, heart rate 93, blood pressure 147/75, respiratory rate 17, O2 saturation 95%. GENERAL: In no acute distress, alert. NECK: No JVD. CHEST: Clear to auscultation. CARDIOVASCULAR: Regular rate and rhythm. Normal S1 and S2. No S3 or S4. ABDOMEN: Soft, nontender. EXTREMITIES: With wounds as previously described and edema. CARDIOVASCULAR MEDICATIONS: Reviewed. Clindamycin, ceftriaxone, lisinopril 40 mg daily, aspirin 81 mg daily previously prescribed, currently on hold given recent biopsy today. LABORATORY DATA: Sodium 132, potassium 3.8, chloride 98, bicarbonate 23, BUN 8, creatinine 1.04, glucose 126. White blood cells 9.1, hemoglobin 10.9, platelets 177. AST 20, ALT 13, alkaline phosphatase 105, total bilirubin 0.5. ASSESSMENT: A 78-year-old woman with severe mixed venous and arterial wounds to right more than left lower extremity with overt infection. RECOMMENDATIONS: Proceed with angiogram and possible intervention tomorrow to lower extremities. Further recommendations to follow. Resume aspirin. MD RADHA Stallworth/EBER /[id number]
--- NOTE | 2019-05-11 18:57 | NUR ---
PATIENT IN STABLE CONDITION WITH NO S/S OF RESPIRATORY DISTRESS. IV FLUIDS INFUSING. DIAPER APPLIED. BED ALARM ON. PATIENT AWARE SHE WILL BE NPO AFTER MIDNIGHT. CALL LIGHT IS WITHIN REACH, PATIENT INSTRUCTED TO CALL FOR ASSISTANCE NEEDED. BEDSIDE REPORT GIVEN TO ONCOMING NURSE.
--- NOTE | 2019-05-11 19:00 | NUR ---
patient received awake, lying quietly in bed. no c/o pain noted. ivf continue to infuse without difficulty. pm assessment complete. patient instructed to call for assistance when needed.
--- NOTE | 2019-05-11 21:35 | NUR ---
patient scheduled for abdominal aotagram, leg runoffs, block captain iliac or leg artery, possible peripheral stent. telephone consent obtained for this procedure by daughter, Renee Bajwa. consent verified with Lincoln FISHER. consent placed on patients chart.
[2019-05-12] VITALS (10 sets, daily range): BP systolic 126–208; BP diastolic 60–90
--- NOTE | 2019-05-12 04:00 | NUR ---
patient awake, lying quietly in bed. no c/o pain noted. am labs drawn at this time.
[2019-05-12 04:20] LABS: BASOPHILS # (AUTO) 0.1 (0.0-0.1); BASOPHILS % 0.8 % (0.0-1.0); EOSINOPHILS # (AUTO) 0.4 (0.0-0.4); EOSINOPHILS % 4.6 % (0.0-6.0); HEMATOCRIT 31.5 % (34.2-44.1); HEMOGLOBIN 10.3 g/dL (12.0-16.0); LYMPHOCYTES # (AUTO) 0.6 (1.0-3.2); LYMPHOCYTES % 7.5 % (18.0-39.1); MEAN CORPUSCULAR HEMOGLOBIN 32.8 pg (28-32); MEAN CORPUSCULAR HGB CONC 32.7 g/dL (31-35); MEAN CORPUSCULAR VOLUME 100.3 fL (81-99); MONOCYTES # (AUTO) 1.1 (0.2-0.8); NEUTROPHILS # (AUTO) 5.7 (2.1-6.9); NEUTROPHILS % 72.7 % (38.7-80.0); PLATELET COUNT 189 x10e3/uL (140-360); RED BLOOD COUNT 3.14 x10e6/uL (3.6-5.1); RED CELL DISTRIBUTION WIDTH 13.3 % (11.7-14.4)
[2019-05-12 04:31] LABS: INR 1.11; PARTIAL THROMBOPLASTIN TIME 37.5 seconds (23.8-35.5); PROTHROMBIN TIME 14.8 seconds (11.9-14.5)
[2019-05-12 04:38] LABS: ANION GAP 11.9 mmol/L (8-16); CALCIUM 8.1 mg/dL (8.4-10.2); CREATININE, SERUM 2.11 mg/dL (0.57-1.11); POTASSIUM 3.9 mmol/L (3.5-5.1)
[2019-05-12] MEDS: LEVOTHYROXINE SODIUM 25 MCG TABLET PO SCH (05:03)
[2019-05-12] MEDS: CLINDAMYCIN 600MG / 50ML 50 ML IV SCH ×4 (05:03→17:27)
[2019-05-12] MEDS: SODIUM CHLORIDE 0.9% 1000ML 1,000 ML IV SCH ×2 (07:10→22:53)
[2019-05-12 07:52] LABS: BAND NEUTROPHILS % (MANUAL) 2 %; EOSINOPHILS % (MANUAL) 4 % (0-7); LYMPHOCYTES % (MANUAL) 9 % (19-48); MONOCYTES % (MANUAL) 10 % (3.4-9.0); NEUTROPHILS % (MANUAL) 75 % (40-74)
[2019-05-12 07:53] LABS: PLATELET ESTIMATE ADEQUATE; PLATELET MORPHOLOGY COMMENT NORMAL; RBC MORPHOLOGY COMMENT NORMAL
[2019-05-12] MEDS ORDERED: HEPARIN SOD (PORCINE) 1000 UNIT/ML 30ML ONE (08:08)
[2019-05-12] MEDS ORDERED: MIDAZOLAM HCL 2 MG/2 ML VIAL ONE (08:08)
[2019-05-12] MEDS ORDERED: LIDOCAINE HCL 2% LOCAL 20 ML VIAL ONE (08:09)
[2019-05-12] MEDS ORDERED: FENTANYL CITRATE/PF 100MCG/2 ML INJ ONE (08:09)
[2019-05-12] MEDS ORDERED: HEPARIN SOD/SOD CHLORIDE 0 ML ONE (08:09)
[2019-05-12] MEDS ORDERED: SODIUM CHLORIDE 0.9% 1000ML 0 ML ONE (08:10)
[2019-05-12] MEDS ORDERED: IOPAMIDOL 300MG/ML 100 ML INFUS..BTL IV ONE (08:10)
[2019-05-12] MEDS ORDERED: NITROGLYCERIN/D5W 200 MCG/ML 0 ML ONE (08:10)
--- NOTE | 2019-05-12 08:44 | NUR ---
Patient back in room, Alert with no distress, Dr Henderson in room talking to family.
[2019-05-12] MEDS: LISINOPRIL 20 MG TAB PO SCH (09:00)
--- NOTE | 2019-05-12 09:11 | NUR ---
Dressing changed on lower extremities, patient had large BM, sacral dressing changed, not in any SOB or distress
[2019-05-12] MEDS: PAROXETINE HCL 20 MG TAB PO SCH (09:45)
[2019-05-12] MEDS: GABAPENTIN 300 MG CAP PO SCH (09:45)
[2019-05-12] MEDS: COLLAGENASE OINTMENT 30 GM TUBE TP SCH (10:12)
[2019-05-12] MEDS: MORPHINE SULFATE 2 MG/ML SYR 1ML IV PRN (10:13)
[2019-05-12 10:34] LABS: ANION GAP 13.3 mmol/L (8-16); CALCIUM 8.6 mg/dL (8.4-10.2); CREATININE, SERUM 2.26 mg/dL (0.57-1.11); POTASSIUM 4.3 mmol/L (3.5-5.1)
[2019-05-12] MEDS: CEFTRIAXONE SOD 2 GM/NS 100 ML 100 ML IV SCH (10:35)
[2019-05-12] MEDS: ASPIRIN 81 MG CHEW TAB PO SCH (11:05)
--- NOTE | 2019-05-12 11:50 | NUR ---
Rechecked BP manually 160/80, will recheck again, patient not in any distress, elevated creatinine notified to Vidhya GENTILE, new order recvd to Consult Dr Fraser, Dr Fraser notified
--- NOTE | 2019-05-12 12:34 | Progress Note ---
DATE: 05/12/2019 Cardiology Progress Note. SUBJECTIVE: Denies any chest pain or shortness of breath. OBJECTIVE: VITAL SIGNS: Temperature 98.1, heart rate 80, respiratory rate 16, blood pressure 136/69, O2 saturation 95%. GENERAL: In no acute distress, alert. NECK: No JVD. CHEST: Clear to auscultation. CARDIOVASCULAR: Regular rate and rhythm. Normal S1, S2. ABDOMEN: Soft, nontender. EXTREMITIES: Trace edema. Wounds covered with dressings. MEDICATIONS: Cardiovascular medications reviewed. Lisinopril 40 mg daily, which will be discontinued today. Clindamycin, ceftriaxone, aspirin 81 mg daily. STUDIES: Reviewed. Sodium 130, potassium 3.9, chloride 100, bicarbonate 22, BUN 18, creatinine 2.1, glucose 91. White blood cells 7.8, hemoglobin 10.3, platelets 189. AST 20, ALT 13, alkaline phosphatase 105, total bilirubin 0.6. ASSESSMENT: 1. A 78-year-old woman presents with mixed arterial and venous ulcers, right more than left lower extremities. 2. Hypertension. 3. Hypothyroidism. 4. History of smoking. RECOMMENDATIONS: The patient developed acute kidney injury and therefore angiogram has been held. We will discontinue lisinopril. Would suggest renal consultation and continue rest of cardiovascular medications, wound care and antibiotics at the discretion of ID. MD RADHA Stallworth/EBER /[id number]
--- NOTE | 2019-05-12 15:10 | NUR ---
Talked to Dr Fraser when he here for rounds , he stated bcz of kidney numbers up and down BP will be varying and he gona order some tests for kidney.
[2019-05-12 16:11] LABS: BILIRUBIN,URINE NEGATIVE (NEGATIVE); CLARITY,URINE SL CLOUDY (CLEAR); COLOR,URINE YELLOW (YELLOW); KETONES,URINE NEGATIVE (NEGATIVE); LEUKOCYTE ESTERASE ,URINE MODERATE (NEGATIVE); NITRITE,URINE NEGATIVE (NEGATIVE); PROTEIN,URINE DIPSTICK TRACE (NEGATIVE); URINE UROBILINOGEN 0.2 mg/dL (0.2 - 1)
[2019-05-12 16:42] LABS: BACTERIA,URINE FEW /HPF; EPITHELIAL CELLS,URINE FEW /LPF; WBC,URINE (MAN) 21-50 /HPF (0-5); YEAST,URINE MODERATE
[2019-05-12 16:54] LABS: TOTAL PROTEIN, URINE 32.3 mg/dL (1-14)
--- NOTE | 2019-05-12 17:22 | NUR ---
patient resting in bed, tolerated half with dinner, denies any chest pain or SOB, NO distress noted call light in reach
--- NOTE | 2019-05-12 17:32 | Diagnostic Imaging Report ---
EXAM: Renal Ultrasound INDICATION: ^jacob COMPARISON: None TECHNIQUE: Transverse and longitudinal images of the kidneys and bladder were obtained. FINDINGS: Right Kidney: Length: 11.9 cm Appearance: Normal echogenicity. Collecting system: No hydronephrosis Stones: None Cyst/Mass: None Left Kidney: Length: 10.5 cm Appearance: Normal echogenicity. Collecting system: No hydronephrosis Stones: None Cyst/Mass: None Bladder: Verma catheter in the decompressed bladder. IMPRESSION: No renal calculi or hydronephrosis. Signed by: Renae Marquez MD on 05/12/2019 5:28 PM
[2019-05-12 17:38] LABS: EOSINOPHIL SMEAR,URINE NONE SEEN (NONE SEEN)
[2019-05-12 18:18] LABS: SODIUM,URINE 41 mmol/L
[2019-05-12] MEDS: HYDROCODONE/APAP 7.5MG-325MG 1 EA TAB PO PRN (18:26)
--- NOTE | 2019-05-12 19:58 | NUR ---
RECEIVED PT IN BED AOX3 .RESPIRATIONS ARE EVEN AND UNLABORED .,DENIES PAIN .CALL LIGHT WITH IN REACH .CONTINUE TO MONITOR
--- NOTE | 2019-05-12 20:16 | Consultation ---
DATE OF CONSULTATION: 05/12/2019 Nephrology Consultation REASON FOR CONSULTATION: Acute kidney injury. HISTORY OF PRESENT ILLNESS: This is a 78-year-old female, who has a history of ITP, hypertension, hypothyroidism, and depression, admitted to the ER after having some bilateral lower extremity wounds infection. It seems that the patient was at the [facility] and was being treated accordingly. She now presents with worsening wounds, needing angiogram and further workup by Cardiology, Wound Care and ID doctor. She is already on IV antibiotics. On admission, she was found to have an elevated blood pressure and there has been several fluctuations in her blood pressure, likely leading to acute kidney injury. Nephrology was consulted for DAMIEN management. After reviewing the chart, once again I saw that there was some blood pressures in the 90s and there were some readings close to 200 systolically. Medications were reviewed shows clindamycin and ceftriaxone. Lisinopril was on board as well, which are now currently being discontinued. Gabapentin was also discontinued as we speak. There is no angiogram performed. The patient did not have any contrast studies at all as well. The patient is seen and evaluated at bedside on the medical floor. She is currently doing well with no other issues at this time. REVIEW OF SYSTEMS: Pertinent positive: Lower extremity wound infection. Pertinent negatives: Denies any chest pain, palpitation, nausea, vomiting, diarrhea, dysuria, hematuria, frequency, lightheadedness, dizziness, abdominal pain, headaches, shortness of breath, cough, congestion, fever, or any other complaints. The rest of 14-point review of systems have been reviewed with the patient and are negative. ALLERGIES: NO KNOWN DRUG ALLERGIES. HOME MEDICATIONS: Please see med reconciliation list. PAST MEDICAL HISTORY: Hypertension, hypothyroidism, and history of ITP. PAST SURGICAL HISTORY: Appendectomy, hysterectomy, right TKA, hand surgery, and surgery. FAMILY HISTORY: Hypertension and diabetes. SOCIAL HISTORY: No drugs. Was a social drinker, heavy smoker. Good family support. Has children. PHYSICAL EXAMINATION: VITAL SIGNS: Temperature is 96.3, pulse 91, respiratory rate is 17, blood pressure 160/94, and pulse ox 97% on 2 L nasal cannula. GENERAL: Not in acute distress. Alert and oriented x3. Cooperative on examination. HEENT: Head; normocephalic, atraumatic. Eyes; pupils are equal, round, and reactive to light bilaterally. Extraocular movements intact bilaterally. Throat; no evidence of erythema or exudates in the posterior pharynx. Has poor dentition. NECK: Supple. Good range of motion. PULMONARY: Clear to auscultation bilaterally. No wheezing, no rales, no rhonchi, no crackles appreciated. CARDIOVASCULAR: Positive S1 and S2. No murmurs, rubs, or gallops appreciated. ABDOMEN: Soft, nondistended, and nontender to palpation. Bowel sounds present. MUSCULOSKELETAL: Strength is 5/5 throughout. No evidence of any muscle deficits on examination. No weakness appreciated. NEUROLOGIC: Cranial nerves II through XII grossly intact. No evidence of any neurological deficits on exam. SKIN: Intact. Warm to touch. Good cap refill. PSYCHIATRIC: Normal affect and mood. EXTREMITIES: No edema. Good range of motion throughout. LABORATORY FINDINGS: Show white count 7.8, hemoglobin 10.3, hematocrit is 31, and platelets of 189. Chemistry; sodium 134, potassium 4.3, chloride 102, bicarb 23, anion gap of 13, BUN is 19, and on admission creatinine was 0.95, but trended approximately on 05/10/2019 at 2.1, now 2.2. Urinalysis negative. Toxicology screen, vancomycin trough was within normal range. MICROBIOLOGY: Shows wound culture, Staph aureus. Wound cultures also . Urine culture negative. Blood cultures were negative. IMPRESSION: 1. Acute kidney injury, likely secondary to acute tubular necrosis from fluctuations in blood pressure. 2. Severe peripheral arterial disease. 3. Cellulitis. 4. Hypertension. PLAN: At this time, I stopped gabapentin and TANK inhibitor, which can essentially make the patient more sedated in terms of gabapentin and leads to worsening renal function with TANK inhibitor. Contrast studies were not provided, which is good and peripheral angiogram was delayed. Antibiotics were reviewed, which could cause AIN, but I did order urine lytes, urine sodium, urine protein to creatinine, urine creatinine and urine eosinophils. UA with microscopy and a renal ultrasound as well. We will renally dose all medications and monitor very closely. Once again, I discussed the plan of care with the nursing staff and the family at bedside. Follow with the results of these urine studies and renal ultrasound. MD DANIE Aguilera/MODL /[id number]
[2019-05-13] VITALS (7 sets, daily range): BP systolic 148–215; BP diastolic 69–102
[2019-05-13] MEDS: SODIUM CHLORIDE 0.9% 1000ML 1,000 ML IV SCH ×3 (01:35→15:20)
[2019-05-13] MEDS: HYDROCODONE/APAP 7.5MG-325MG 1 EA TAB PO PRN ×3 (03:30→16:55)
[2019-05-13 04:01] LABS: BASOPHILS # (AUTO) 0.1 (0.0-0.1); BASOPHILS % 1.4 % (0.0-1.0); EOSINOPHILS # (AUTO) 0.4 (0.0-0.4); EOSINOPHILS % 4.8 % (0.0-6.0); HEMATOCRIT 36.4 % (34.2-44.1); HEMOGLOBIN 11.7 g/dL (12.0-16.0); LYMPHOCYTES # (AUTO) 0.9 (1.0-3.2); MEAN CORPUSCULAR HEMOGLOBIN 32.3 pg (28-32); MEAN CORPUSCULAR HGB CONC 32.1 g/dL (31-35); MEAN CORPUSCULAR VOLUME 100.6 fL (81-99); MONOCYTES % 12.7 % (4.4-11.3); NEUTROPHILS # (AUTO) 5.3 (2.1-6.9); NEUTROPHILS % 68.6 % (38.7-80.0); PLATELET COUNT 216 x10e3/uL (140-360); RED BLOOD COUNT 3.62 x10e6/uL (3.6-5.1); RED CELL DISTRIBUTION WIDTH 13.2 % (11.7-14.4)
[2019-05-13 04:16] LABS: ANION GAP 15.7 mmol/L (8-16); CALCIUM 8.1 mg/dL (8.4-10.2); CREATININE, SERUM 2.17 mg/dL (0.57-1.11); POTASSIUM 4.7 mmol/L (3.5-5.1)
[2019-05-13] MEDS ORDERED: CHOLESTYRAMINE 4 GM PACKET PO PRN (05:15)
[2019-05-13] MEDS: CLINDAMYCIN 600MG / 50ML 50 ML IV SCH ×4 (05:58→17:56)
[2019-05-13] MEDS: LEVOTHYROXINE SODIUM 25 MCG TABLET PO SCH (07:16)
[2019-05-13] MEDS: HYDRALAZINE HCL 20 MG/ML VIAL IV PRN (07:16)
--- NOTE | 2019-05-13 07:26 | NUR ---
PT RESTED DURING THE NIGHT AND NO ACUTE DISTRESS NOTE.BEDSIDE REPORT GIVEN TO THE ONCOMING NURSE
--- NOTE | 2019-05-13 07:53 | NUR ---
Patient resting in bed, Alert with no distress, bed alarm ON, call light in reach, denies any chest pain Or SOB. WILL MONITOR
[2019-05-13] MEDS: PAROXETINE HCL 20 MG TAB PO SCH (08:06)
[2019-05-13] MEDS: ASPIRIN 81 MG CHEW TAB PO SCH (08:07)
[2019-05-13] MEDS ORDERED: AMLODIPINE BESYLATE 10 MG TAB PO SCH (09:00)
--- NOTE | 2019-05-13 09:34 | NUR ---
Scrotal dressing and PICC line dressing changed, patient tolerated well Addendum: 05/13/19 at 1058 by MITCH MELO RN wrong patient
[2019-05-13] MEDS: COLLAGENASE OINTMENT 30 GM TUBE TP SCH (10:13)
--- NOTE | 2019-05-13 10:13 | NUR ---
Dressing changed on both lower extremities, patient tolerated well, medicated with pain med PRN before dressing change, repositioned her
[2019-05-13] MEDS: CEFTRIAXONE SOD 2 GM/NS 100 ML 100 ML IV SCH (10:24)
--- NOTE | 2019-05-13 16:06 | Progress Note ---
DATE: 05/13/2019 Nephrology Progress Note SUBJECTIVE: The patient is doing well today with no complaints. She was sitting in a chair at bedside. Nurse was present throughout the entire conversation. Creatinine improved to 0.1. Good urine output. PHYSICAL EXAMINATION: VITAL SIGNS: Temperature 97.4, pulse 97, respiratory rate is 19, blood pressure 149/69, and pulse ox 97% on 2 L nasal cannula. GENERAL: Not in acute distress, alert and oriented x3. Cooperative on examination. HEENT: Head is normocephalic and atraumatic. Eyes, pupils are equal, round, and reactive to light bilaterally. Extraocular muscles are intact bilaterally. Throat, no evidence of erythema or exudates in the posterior pharynx. Has poor dentition. NECK: Supple. Good range of motion. PULMONARY: Clear to auscultation bilaterally. No wheezing, rales, or rhonchi. No crackles appreciated. CARDIOVASCULAR: Positive S1, S2. No murmurs, rubs, or appreciated. ABDOMEN: Soft, nontender to palpation. Bowel sounds present. MUSCULOSKELETAL: Strength is 5/5 throughout. No evidence of any muscle deficits on examination. No weakness appreciated. NEUROLOGIC: Cranial nerves II through XII grossly intact. No evidence of any neurological deficits on exam. SKIN: Intact. Warm to touch. Good cap refill. PSYCHIATRIC: Normal affect and mood. EXTREMITIES: No edema. Good range of motion throughout. LAB FINDINGS: Show WBCs 10.7, hemoglobin 11.7, hematocrit 36, and platelets of 260. Coagulation, stable. Chemistry, sodium 131, potassium 4.7, chloride 104, bicarb 16, anion gap of 15, BUN is 18, creatinine is 2.1, much improved compared to yesterday 2.26, and glucose is 71. Urinalysis studies seems to be more contaminated, showed some rbc's, wbc's, few epithelial cells. There was some yeast present. Urine eosinophils were negative. Urine [id number], , microbiology noted. IMPRESSION: 1. Acute kidney injury, likely secondary to acute tubular necrosis from underlying hypotension, improving. 2. Severe peripheral arterial disease. 3. Cellulitis. 4. Hypotension. PLAN: At this time, her creatinine did improve to 2.16 compared to yesterday. Urine electrolytes reviewed. Renal ultrasound was reviewed as well, which shows some enlarged kidneys compared to the patient's size. There is no evidence of any obstruction or any stones. At this time, I will just follow. I will manage this patient very conservatively. We will get repeat labs in the morning and monitor creatinine and electrolytes. Her bicarb is low, we will start her on sodium bicarbonate tab 1300 mg p.o. b.i.d. and monitor that very closely. Otherwise, we will continue same plan of care. Monitor closely. MD DANIE Aguilera/RUFUSL /[id number]
--- NOTE | 2019-05-13 16:44 | NUR ---
Nutrition Follow-up Note RD Recommendation(s) for Physician: - Continue with Cardiac Diet as ordered - Rec appetite stimulant to increase protein-calorie intake Plan of Care: RD following, monitoring for tolerance and adequacy Nutrition reason for involvement: Follow up RD Assessment: (05/13) Visited pt in the room. Pt reported of poor appetite with 25-50% meal intake due to being full of fluids. DAMIEN has improved. Pt was getting 125mL/hr of IVF. Pt stated I am so bloated. I dont want to eat anything. Pt denied any nausea or vomiting. LBM 05/13, diarrhea due to abx. Pt denied any chewing or swallowing difficulty. Pt refused nutrition intervention at this time due to discomfort. (05/08) Pt is a 78 y/o F admitted for cellulitis of the left leg, venous stasis ulcer infected with severe pain . Patient family at bedside who provide additional history for patient. Per patient and daughter UBW of 100 lbs for the past 6 months. Patients daughter reports patient has slowly been losing weight unintentionally due to current health status. Patient stated I am not eating, confirming poor appetite and intake x 1 week. Patient meal tray at bedside appeared to have consumed 50% of meal. Pt denied any N/V/D/C or difficulties with chewing or swallowing. Discussed addition of ONS for additional nutrition, patient was open to trying Ensure with meals. RDN to follow and monitor as needed. Principal Problems/Diagnoses: Cellulitis and stasis leg ulcer PMH: Hypertension, smoker, history of hypothyroidism, history of venous stasis, history of neuropathy GI: Abdomen soft, flat and non tender Skin: Non-pressure related infected wound on left leg Labs: (05/13) Na 131 L, Creatinine 2.17 H, Glucose 71 L, Ca 8.1 L (05/08) Sodium 130 , Ca 7.8 Meds: abx, IVF, synthroid, questran Ht: 64in Wt: 112 lbs on bed scale, patient and family report weight of ~ 100 lbs BMI: 19.2 kg/m2 IBW: 120lbs +/- 10% Malnutrition Evaluation (05/08) The patient meets criteria for MILD protein-calorie malnutrition. Energy intake: <50% of estimated energy requirements for >5 days Weight loss: 1-2% in 1 week (Acute) Fat loss: Mild, slight hollowing of orbital region surrounding eyes Muscle loss: Mild, some depression of temporal Supporting Evidence: Fluid accumulation: Mild localized to lower extremities Functional Status: unable to evaluate Nutrition Prescription (Diet Order): Cardiac Diet Estimated Nutritional Needs: 1136-1591calories/day ( 25-35 kcal/kg of reported weight) 45-68 g protein/day (1-1.5g pro/kg of reported weight) Diet Adequacy: Not meeting calorie needs, not meeting protein needs Diet Education Needs Assessment: Diet education not indicated. Nutrition Care Level: Mod Nutrition Diagnosis: Inadequate oral intake related to poor appetite as evidenced by patient reports of poor appetite with 25-50% meal intake. Goal: Patient will meet 75-100% of estimated needs by follow up Progress: Not progressing Interventions: -Modified diet, prescribed medication Monitoring/Evaluation: -Total energy intake, Total protein intake, Weight change Signed: Ava Schultz MS, RD, LD
[2019-05-13] MEDS: SODIUM BICARBONATE 650 MG TAB PO SCH (16:54)
--- NOTE | 2019-05-13 17:32 | Progress Note ---
DATE: 05/13/2019 Cardiology Progress Note SUBJECTIVE: Denies any chest pain or shortness of breath. Has some moderate discomfort at wound site. OBJECTIVE: VITAL SIGNS: Temperature 97.4, heart rate 97, blood pressure 149/69, respiratory rate 19, and O2 saturation 97%. BMI 20.7. GENERAL: In no acute distress. Alert. NECK: No JVD. CHEST: Clear to auscultation. CARDIOVASCULAR: Regular rate and rhythm. Normal S1 and S2. ABDOMEN: Soft and nontender. Bowel sounds positive. EXTREMITIES: 1+ edema. SKIN: With wounds to right more than left lower extremities covered with dressing. VASCULAR: Abnormal pedal and dorsalis pedis pulses. MEDICATIONS: Cardiovascular medications reviewed, on: 1. Clindamycin. 2. Ceftriaxone. 3. Amlodipine 10 mg daily. 4. Aspirin 81 mg daily. 5. Sodium bicarbonate. 6. Levothyroxine 25 mcg. STUDIES: Reviewed. Sodium 131, potassium 4.7, chloride 104, bicarbonate 16, BUN 18, creatinine 2.17, and glucose 71. White blood cells 7.7, hemoglobin 11.7, and platelets 216. INR 1.1. AST 20, ALT 13, and alkaline phosphatase 105. ASSESSMENT: 1. A 78-year-old woman presents with mixed arterial and venous lower extremity wounds affecting right more than left lower extremity with overt infection associated. 2. Acute kidney injury, undergoing evaluation. 3. Metabolic acidosis, on bicarbonate supplementation. 4. Hypertension. RECOMMENDATIONS: 1. Continue to hold TANK inhibitor. 2. Hold off on angiography for now until renal function optimize and stabilizes. 3. I appreciate Nephrology's expertise in assessment for DAMIEN. 4. Antibiotics per ID. 5. Continue wound care. Vadim Salvador MD AFV/MODL /[id number]
--- NOTE | 2019-05-13 21:30 | NUR ---
PATIENT IS AOX3, NO DISTRESS NOTED. COMPLAINTS OF PAIN IN THE LEFT LEG AND MEDICATED ORDERED. DRESSING IS CLEAN ON BILATERAL LEGS. BED IS LOCKED AND LOW, CALL LIGHT WITHIN REACH, WILL CONTINUE TO MONITOR.
[2019-05-13] MEDS: MORPHINE SULFATE 2 MG/ML SYR 1ML IV PRN (21:31)
[2019-05-14] VITALS (8 sets, daily range): BP systolic 125–180; BP diastolic 60–90
[2019-05-14] MEDS: SODIUM CHLORIDE 0.9% 1000ML 1,000 ML IV SCH ×4 (00:10→12:25)
[2019-05-14] MEDS: CLINDAMYCIN 600MG / 50ML 50 ML IV SCH ×4 (00:20→18:00)
--- NOTE | 2019-05-14 00:30 | NUR ---
PATIENT IS RESTING, BOTH EYES CLOSED. NO DISTRESS NOTED, OR COMPLAINTS OF PAIN. CALL LIGHT WITHIN REACH.
[2019-05-14] MEDS: HYDRALAZINE HCL 20 MG/ML VIAL IV PRN (03:33)
[2019-05-14 04:00] LABS: BASOPHILS # (AUTO) 0.1 (0.0-0.1); BASOPHILS % 1.5 % (0.0-1.0); EOSINOPHILS # (AUTO) 0.3 (0.0-0.4); EOSINOPHILS % 4.3 % (0.0-6.0); HEMATOCRIT 34.1 % (34.2-44.1); HEMOGLOBIN 11.1 g/dL (12.0-16.0); LYMPHOCYTES # (AUTO) 0.8 (1.0-3.2); LYMPHOCYTES % 9.7 % (18.0-39.1); MEAN CORPUSCULAR HEMOGLOBIN 32.2 pg (28-32); MEAN CORPUSCULAR HGB CONC 32.6 g/dL (31-35); MEAN CORPUSCULAR VOLUME 98.8 fL (81-99); MONOCYTES # (AUTO) 1.1 (0.2-0.8); MONOCYTES % 13.8 % (4.4-11.3); NEUTROPHILS # (AUTO) 5.5 (2.1-6.9); NEUTROPHILS % 70.2 % (38.7-80.0); PLATELET COUNT 231 x10e3/uL (140-360); RED BLOOD COUNT 3.45 x10e6/uL (3.6-5.1); RED CELL DISTRIBUTION WIDTH 13.4 % (11.7-14.4)
[2019-05-14] MEDS: HYDROCODONE/APAP 7.5MG-325MG 1 EA TAB PO PRN (04:18)
[2019-05-14] MEDS: ONDANSETRON HCL 4 MG ORAL DISINTEGRATING TAB PO PRN ×3 (04:18→21:15)
[2019-05-14 04:29] LABS: ANION GAP 11.8 mmol/L (8-16); CALCIUM 7.9 mg/dL (8.4-10.2); CREATININE, SERUM 1.74 mg/dL (0.57-1.11); POTASSIUM 3.8 mmol/L (3.5-5.1)
[2019-05-14] MEDS: LEVOTHYROXINE SODIUM 25 MCG TABLET PO SCH (06:20)
[2019-05-14] MEDS: MORPHINE SULFATE 2 MG/ML SYR 1ML IV PRN ×3 (06:28→21:15)
--- NOTE | 2019-05-14 07:00 | NUR ---
RECEIVED AM REPORT FROM NURSE, MORNING ROUNDS DONE. PT IS SLEEPING, NO S/S OF DISTRESS. CALL LIGHT WITHIN REACH. SIDE RAILS UP. IVF ARE RUNNING AT 125/HR IN L FA, SITE IS ASYMPTOMATIC
[2019-05-14] MEDS: SODIUM BICARBONATE 650 MG TAB PO SCH ×2 (10:07→17:00)
[2019-05-14] MEDS: NIFEDIPINE CR 30 MG TAB PO SCH (10:07)
[2019-05-14] MEDS: PAROXETINE HCL 20 MG TAB PO SCH (10:08)
[2019-05-14] MEDS: ASPIRIN 81 MG CHEW TAB PO SCH (10:08)
[2019-05-14] MEDS: CEFTRIAXONE SOD 2 GM/NS 100 ML 100 ML IV SCH (10:11)
--- NOTE | 2019-05-14 10:22 | NUR ---
EDUCATED ABOUT IMM, SIGNED, FILED IN CHART, WITH COPY LEFT WITH FAMILY AT BEDSIDE.
--- NOTE | 2019-05-14 10:30 | NUR ---
wound care done. administered pain medication post wound care
[2019-05-14] MEDS: COLLAGENASE OINTMENT 30 GM TUBE TP SCH (10:40)
[2019-05-14] MEDS: CHOLESTYRAMINE 4 GM PACKET PO SCH ×2 (10:40→17:00)
[2019-05-14] MEDS: LORAZEPAM INJ 2 MG/ML VIAL IV PRN ×2 (12:25→21:00)
--- NOTE | 2019-05-14 14:52 | NUR ---
wound care saw pt and identified perineal/buttock rash as yeast. will use OTC antifungal cream to address it. Addendum: 05/14/19 at 1455 by Neha York RN wound care saw pt and identified perineal/buttock rash as yeast. will use OTC antifungal cream to address it. notified JENNIFER Randall
--- NOTE | 2019-05-14 15:02 | Progress Note ---
DATE: 05/14/2019 Nephrology Progress Note SUBJECTIVE: The patient is currently doing well with no complaints. Awaiting for group home facility placement. Creatinine improved and doing much better now. PHYSICAL EXAMINATION: VITAL SIGNS: Temperature is 97.4, pulse 80, respiratory rate is 18, blood pressure 125/64, and pulse ox 97% on 2 liters nasal cannula. GENERAL: Not in acute distress. Alert and oriented x3. Cooperative on examination. HEENT: Head; normocephalic and atraumatic. Eyes; pupils are equal, round, and reactive to light bilaterally. Extraocular movements intact bilaterally. Throat; no evidence of erythema or exudates in the posterior pharynx. Has poor dentition. NECK: Supple. Good range of motion. PULMONARY: Clear to auscultation bilaterally. No wheezing, no rales, no rhonchi, and no crackles appreciated. CARDIOVASCULAR: Positive S1 and S2. No murmurs, rubs, or gallops appreciated. ABDOMEN: Soft, nondistended, and nontender to palpation. Bowel sounds present. MUSCULOSKELETAL: Strength is 5/5 throughout. No evidence of any muscle deficits on examination. No weakness appreciated. NEUROLOGIC: Cranial nerves II through XII grossly intact. No evidence of any neurological deficits on exam. SKIN: Intact. Warm to touch. Good cap refill. PSYCHIATRIC: Normal affect and mood. EXTREMITIES: No edema. Good range of motion throughout. LAB FINDINGS: Show white count 7.8, hematocrit 34, and platelets 231. Chemistry; sodium 136, potassium 3.8, chloride 106, bicarb 22, anion gap , BUN 18, creatinine 1.7 down trending from 2.2 peak and then down trending to 2.1, now 1.74. Glucose is 76, calcium is 7.9. IMPRESSION: 1. Acute kidney injury secondary to acute tubular necrosis from underlying hypotension and changes in blood pressures, now . 2. Severe peripheral arterial disease. 3. Cellulitis. 4. Hypotension, resolved. PLAN: At this time, creatinine is 1.74, much improved compared to 2.17 yesterday. Renal ultrasound reviewed. Continue with same plan of care and monitor very closely. Bicarbonate improved. We will continue with bicarb tabs for now, we will actually discontinue them tomorrow. Upon discharge, she can discontinue those medications. If she does get discharge today, she is to follow up with [facility] as an outpatient. MD DANIE Aguilera/EBER /[id number]
--- NOTE | 2019-05-14 21:00 | NUR ---
PATIENT IS AOX3, NO RESPIRATORY DISTRESS NOTED. COMPLAINTS OF PAIN IN THE LEGS AND MEDICATED ORDERED. FAMILY MEMBER AT BEDSIDE, DRESSING IS CLEAN ON BILATERAL LEGS. BED IS LOCKED AND LOW, CALL LIGHT WITHIN REACH, WILL CONTINUE TO MONITOR.
--- NOTE | 2019-05-14 21:29 | Progress Note ---
DATE: 05/14/2019 Cardiology Progress Note SUBJECTIVE: The patient denies any chest pain or shortness of breath. OBJECTIVE: VITAL SIGNS: Temperature, the patient is afebrile, heart rate is 85 beats per minute, blood pressure is 135/74, respirations 19, O2 saturation is 97%. GENERAL: No acute distress. The patient is alert. NECK: No JVD. CHEST: Clear to auscultation. CARDIOVASCULAR: Regular rate and rhythm. Normal S1 and S2. ABDOMEN: Soft and nontender. Bowel sounds positive. EXTREMITIES: 1+ edema bilaterally. SKIN: Wounds to the right more than left lower extremity, covered with dressings. VASCULAR: Abnormal pedal and dorsalis pedis pulses. MEDICATIONS: Please refer to chart for complete cardiovascular medications. LABORATORY DATA: Hemoglobin is 11.1. Potassium is 3.8. Creatinine is 1.74, which is improved. ASSESSMENT: 1. A 78-year-old woman with mixed arterial and venous lower extremity wounds affecting the right more than left lower extremity with overt infection associated. 2. Acute kidney injury. 3. Metabolic acidosis. 4. Hypertension. RECOMMENDATIONS: 1. Continue current regimen and avoid TANK inhibitor for now. 2. Hold off on angiography until renal function is optimized and stabilized. 3. Continue supportive care and antibiotics per primary and ID recommendations. 4. Deep vein thrombosis prophylaxis. Cross cover for Dr. Vadim Salvador. MD HEBER Vazquez/EBER /[id number]
[2019-05-15] MEDS: CLINDAMYCIN 600MG / 50ML 50 ML IV SCH ×4 (00:10→17:35)
[2019-05-15 04:00] VITALS: BP 137/61
[2019-05-15 04:24] LABS: BASOPHILS # (AUTO) 0.1 (0.0-0.1); BASOPHILS % 2.2 % (0.0-1.0); EOSINOPHILS # (AUTO) 0.3 (0.0-0.4); EOSINOPHILS % 5.4 % (0.0-6.0); HEMATOCRIT 31.3 % (34.2-44.1); HEMOGLOBIN 10.3 g/dL (12.0-16.0); LYMPHOCYTES # (AUTO) 0.8 (1.0-3.2); LYMPHOCYTES % 13.6 % (18.0-39.1); MEAN CORPUSCULAR HEMOGLOBIN 32.9 pg (28-32); MEAN CORPUSCULAR HGB CONC 32.9 g/dL (31-35); MONOCYTES # (AUTO) 0.8 (0.2-0.8); MONOCYTES % 13.8 % (4.4-11.3); NEUTROPHILS # (AUTO) 3.8 (2.1-6.9); PLATELET COUNT 244 x10e3/uL (140-360); RED BLOOD COUNT 3.13 x10e6/uL (3.6-5.1); RED CELL DISTRIBUTION WIDTH 13.9 % (11.7-14.4)
[2019-05-15 04:44] LABS: ANION GAP 10.7 mmol/L (8-16); CALCIUM 7.7 mg/dL (8.4-10.2); CREATININE, SERUM 1.39 mg/dL (0.57-1.11); POTASSIUM 3.7 mmol/L (3.5-5.1)
[2019-05-15] MEDS: ONDANSETRON HCL 4 MG ORAL DISINTEGRATING TAB PO PRN (05:47)
[2019-05-15] MEDS: MORPHINE SULFATE 2 MG/ML SYR 1ML IV PRN ×2 (05:47→17:00)
[2019-05-15] MEDS: LEVOTHYROXINE SODIUM 25 MCG TABLET PO SCH (06:30)
[2019-05-15 07:41] VITALS: BP 133/66
[2019-05-15 09:00] VITALS: BP 133/66
[2019-05-15] MEDS: MAGNESIUM OXIDE 400 MG TAB PO SCH ×2 (09:15→17:00)
[2019-05-15] MEDS: ASPIRIN 81 MG CHEW TAB PO SCH (09:15)
[2019-05-15] MEDS: OYST-CAL-D 500MG TABLET PO SCH ×2 (09:15→17:00)
[2019-05-15] MEDS: PAROXETINE HCL 20 MG TAB PO SCH (09:15)
[2019-05-15] MEDS: MULTIVITAMINS/MINERALS TAB PO SCH (09:15)
[2019-05-15] MEDS: NIFEDIPINE CR 30 MG TAB PO SCH (09:16)
[2019-05-15] MEDS: ZINC SULFATE 220 MG CAP PO SCH ×2 (09:17→17:00)
[2019-05-15] MEDS: ASCORBIC ACID 500 MG TAB PO SCH ×2 (09:17→17:00)
[2019-05-15] MEDS: SODIUM BICARBONATE 650 MG TAB PO SCH (09:17)
[2019-05-15] MEDS: LORAZEPAM INJ 2 MG/ML VIAL IV PRN ×2 (10:20→20:15)
[2019-05-15] MEDS: CEFTRIAXONE SOD 2 GM/NS 100 ML 100 ML IV SCH (10:22)
[2019-05-15 11:44] VITALS: BP 140/67
[2019-05-15] MEDS: SODIUM CHLORIDE 0.9% 1000ML 1,000 ML IV SCH ×3 (12:48→22:02)
--- NOTE | 2019-05-15 13:22 | Progress Note ---
DATE: 05/15/2019 Nephrology Progress Note SUBJECTIVE: The patient is doing well today with no complaints. She was sitting at bedside in a chair with no other issues. PHYSICAL EXAMINATION: VITAL SIGNS: Temperature is 98.3, pulse 86, respiratory rate 17, blood pressure 140/67, and pulse ox 92% on 2 L nasal cannula. GENERAL: Not in acute distress. Alert and oriented x3. Cooperative on examination. HEENT: Head; normocephalic and atraumatic. Eyes; pupils are equal, round, and reactive to light bilaterally. Extraocular movements intact bilaterally. Throat; no evidence of erythema or exudates in the posterior pharynx. Has poor dentition. NECK: Supple. Good range of motion. PULMONARY: Clear to auscultation bilaterally. No wheezing, no rales, no rhonchi, and no crackles appreciated. CARDIOVASCULAR: Positive S1 and S2. No murmurs, rubs, or gallops appreciated. ABDOMEN: Soft, nondistended, and nontender to palpation. Bowel sounds present. MUSCULOSKELETAL: Strength is 5/5 throughout. No evidence of any muscle deficits on examination. No weakness appreciated. NEUROLOGIC: Cranial nerves II through XII grossly intact. No evidence of any neurological deficits on exam. SKIN: Intact. Warm to touch. Good cap refill. PSYCHIATRIC: Normal affect and mood. EXTREMITIES: No edema. Good range of motion throughout. LABORATORY FINDINGS: Show white count 5.8, hemoglobin 10.3, hematocrit is 31, platelets of 244. Chemistry; sodium 141, potassium 3.7, chloride 110, bicarbonate is 24, anion gap of 10, BUN is 15, creatinine 1.39, glucose 77. IMPRESSION: 1. Acute kidney injury secondary to acute tubular necrosis from underlying hypotension and changes in blood pressure. 2. Severe peripheral arterial disease. 3. Cellulitis. 4. Hypotension, resolved. PLAN: At this time, creatinine improved to 1.39. Electrolytes are stable. We will continue to monitor very closely. We will go ahead and discontinue the bicarbonate tabs. Repeat labs in the morning. Monitor with primary team. MD DANIE Aguilera/MODL /[id number]
--- NOTE | 2019-05-15 13:27 | Progress Note ---
DATE: 05/15/2019 Cardiology Progress Note SUBJECTIVE: The patient denies any chest pain or shortness of breath. Reports discomfort at wounds on her lower legs. Family members at bedside. OBJECTIVE: VITAL SIGNS: Temperature is 98.3, heart rate 86, blood pressure 140/67, and respirations 17. GENERAL: No acute distress. The patient is alert. NECK: No JVD. CHEST: Clear to auscultation Bilaterally. CARDIOVASCULAR: Regular rate and rhythm. Normal S1 and S2. ABDOMEN: Soft and nontender. Bowel sounds are positive. EXTREMITIES: Trace lower extremity edema bilaterally. SKIN: Wounds to the bilateral lower extremities, right greater than left. Dressings are clean, dry, and intact. VASCULAR: Abnormal pedal and dorsalis pedis pulses. MEDICATIONS: Please refer to chart for complete cardiovascular medications. LABORATORY DATA: Creatinine is improved to 1.39. Hemoglobin is 10.3. ASSESSMENT: 1. A 78-year-old woman with mixed arterial and venous lower extremity wounds affecting the right more than left lower extremity with overt infection associated. 2. Acute kidney injury. 3. Metabolic acidosis. 4. Hypertension. RECOMMENDATIONS: 1. Continue current regimen. Renal function is improving and blood pressure is stable. 2. Hold off on angiography until renal function is optimized. 3. Continue supportive care, wound care, antibiotics per primary ID recommendations. 4. DVT prophylaxis. Cross cover for Dr. Vadim Salvador. MD HEBER Vazquez/EBER /[id number]
--- NOTE | 2019-05-15 16:23 | Progress Note ---
DATE: SUBJECTIVE: Ms. Lockett is lying in bed comfortably. There are no complaints. REVIEW OF SYSTEMS: Negative. PHYSICAL EXAMINATION: VITAL STABLE: Afebrile, temperature 98.3, heart rate 86 with blood pressure 142/67, and respiration 18. HEENT: Normocephalic. Not icteric. NECK: Supple. No JVD. No lymphadenopathy. No thyromegaly. CHEST: Clear bilateral. HEART: S1 and S2. No S3, S4, or murmur. ABDOMEN: Soft. Bowel sounds present. No tenderness. No hepatosplenomegaly. EXTREMITIES: Edema on the leg seems to be better. There is no redness or swelling. She continued to have ulcer and lymphedema seemed also better. IMPRESSION: 1. Cellulitis of the leg, better, can change to oral antibiotic. 2. Bilateral lower extremities venous stasis dermatitis. 3. Venous stasis ulcers. 4. Concerned about peripheral vascular disease. 5. Chronic kidney disease, acute kidney injury. 6. History of smoking. The patient is currently on clindamycin and Rocephin. From Infectious Disease point of view, can change to oral antibiotic, as the patient to be discharged home. She is growing Staph aureus and Providencia. Discussed with the medical team. MD KWAME Hidalgo/EBER /[id number]
[2019-05-15] MEDS: COLLAGENASE OINTMENT 30 GM TUBE TP SCH (17:35)
--- NOTE | 2019-05-15 17:36 | NUR ---
DAILY WOUND CARE DONE. PT TOLERATED WELL. PAIN MEDICINE GIVEN PRIOR.
[2019-05-15 19:40] VITALS: BP 167/86
[2019-05-15 20:15] VITALS: BP 167/86
[2019-05-15] MEDS: HYDRALAZINE HCL 20 MG/ML VIAL IV PRN (21:18)
[2019-05-16] VITALS (7 sets, daily range): BP systolic 123–175; BP diastolic 64–86
[2019-05-16] MEDS: CLINDAMYCIN 600MG / 50ML 50 ML IV SCH ×4 (00:06→17:05)
[2019-05-16] MEDS: ONDANSETRON HCL 4 MG ORAL DISINTEGRATING TAB PO PRN ×2 (00:20→06:34)
[2019-05-16] MEDS: MORPHINE SULFATE 2 MG/ML SYR 1ML IV PRN ×2 (00:20→06:34)
[2019-05-16] MEDS: LORAZEPAM INJ 2 MG/ML VIAL IV PRN ×2 (03:15→17:50)
[2019-05-16] MEDS: HYDRALAZINE HCL 20 MG/ML VIAL IV PRN (03:15)
[2019-05-16] MEDS: LOPERAMIDE HCL 2 MG CAP PO PRN (03:15)
--- NOTE | 2019-05-16 03:15 | NUR ---
PATIENT HAD SOILED DIAPER FOR THE SECOND TIME, AND VOICED THAT HER ANXIETY WAS ELEVATED, SHE WAS MEDICATED ORDERED. NOTICED THAT RASH IN RECTUM AREA WAS MORE REDDENED THAN PREVIOUSLY. FUNGAL CREAM WAS APPLIED, WILL INFORM PHYSICIAN.
--- NOTE | 2019-05-16 04:55 | NUR ---
INFORMED FABIO LEMUS OF PATIENTS REDDENED RECTAL AREA.
[2019-05-16] MEDS: LEVOTHYROXINE SODIUM 25 MCG TABLET PO SCH (06:33)
[2019-05-16] MEDS: OYST-CAL-D 500MG TABLET PO SCH ×2 (08:19→17:06)
[2019-05-16] MEDS: PAROXETINE HCL 20 MG TAB PO SCH (08:19)
[2019-05-16] MEDS: AMLODIPINE BESYLATE 10 MG TAB PO SCH (08:19)
[2019-05-16] MEDS: MULTIVITAMINS/MINERALS TAB PO SCH (08:19)
[2019-05-16] MEDS: MAGNESIUM OXIDE 400 MG TAB PO SCH ×2 (08:19→17:06)
[2019-05-16] MEDS: ASPIRIN 81 MG CHEW TAB PO SCH (08:19)
[2019-05-16] MEDS: SODIUM CHLORIDE 0.9% 1000ML 1,000 ML IV SCH (08:19)
[2019-05-16] MEDS: ZINC SULFATE 220 MG CAP PO SCH ×2 (08:20→17:06)
[2019-05-16] MEDS: NIFEDIPINE CR 30 MG TAB PO SCH (08:20)
[2019-05-16] MEDS: ASCORBIC ACID 500 MG TAB PO SCH ×2 (08:20→17:06)
[2019-05-16] MEDS: CEFTRIAXONE SOD 2 GM/NS 100 ML 100 ML IV SCH (11:06)
--- NOTE | 2019-05-16 11:26 | Progress Note ---
DATE: 05/16/2019 Cardiology Progress Note SUBJECTIVE: The patient was stable overnight. No new complaints. However, family is at bedside this morning and complains of swelling noted around the patient's eyes. OBJECTIVE: VITAL SIGNS: Temperature is 98.4, heart rate 97, blood pressure 163/79, respirations 20. GENERAL: No acute distress. The patient is alert. NECK: No JVD. CHEST: Clear to auscultation bilaterally. CARDIOVASCULAR: Regular rate and rhythm. Normal S1, S2. ABDOMEN: Soft and nontender. Bowel sounds are positive. EXTREMITIES: Trace lower extremity edema bilaterally. SKIN: Wounds of the bilateral lower extremities, right greater than left. Dressings are clean, dry, and intact. VASCULAR: Abnormal pedal and dorsalis pedis pulses. MEDICATIONS: Please refer to chart for complete cardiovascular medications. LABORATORY DATA: No new labs obtained today. ASSESSMENT: 1. A 78-year-old woman with mixed arterial and venous lower extremity wounds affecting the right more than left lower extremity with overt infection associated. 2. Acute kidney injury. 3. Metabolic acidosis. 4. Hypertension. RECOMMENDATION: 1. Continue current regimen. 2. Renal function has improved significantly. 3. Blood pressure is stable. The patient was for some reason placed on both Norvasc and nifedipine XL, however, only one calcium channel aye is allowed at one time, therefore we will continue Norvasc and discontinue nifedipine XL at this time. We will begin metoprolol tartrate 25 mg p.o. q.8 hours and continue to monitor blood pressure. 4. Mild facial swelling noted. Recommend a dose of Benadryl for now and continue to monitor symptoms. 5. Continue supportive care, wound care, and antibiotics for lower extremity wounds per Primary and ID recommendations. 6. DVT prophylaxis. Cross cover for Dr. Vadim Salvador. MD HEBER Vazquez/EBER /[id number]
[2019-05-16] MEDS: HYDROCODONE/APAP 7.5MG-325MG 1 EA TAB PO PRN ×2 (11:41→17:49)
[2019-05-16] MEDS ORDERED: DIPHENHYDRAMINE HCL 25 MG CAP PO NR (12:00)
[2019-05-16] MEDS ORDERED: FUROSEMIDE INJ 10 MG/ML 4 ML VIAL IV NR (13:00)
[2019-05-16] MEDS: METOPROLOL TARTRATE 25 MG TAB PO SCH ×2 (13:25→22:00)
--- NOTE | 2019-05-16 15:13 | Progress Note ---
DATE: 05/16/2019 Renal Progress Note SUBJECTIVE: The patient is doing well today with no complaints. OBJECTIVE: VITAL SIGNS: Afebrile. Normotensive. Respiratory rate is good. Saturating 95% on nasal cannula. GENERAL: Not in acute distress. Alert and oriented x3. Cooperative on examination. HEENT: Head; normocephalic, atraumatic. Eyes; pupils are equal, round, and reactive to light bilaterally. Extraocular movements intact bilaterally. Throat; no evidence of erythema or exudates in the posterior pharynx. Has poor dentition. NECK: Supple. Good range of motion. PULMONARY: Clear to auscultation bilaterally. No wheezing, no rales, no rhonchi, no crackles appreciated. CARDIOVASCULAR: Positive S1 and S2. No murmurs, rubs, or gallops appreciated. ABDOMEN: Soft, nondistended, and nontender to palpation. Bowel sounds present. MUSCULOSKELETAL: Strength is 5/5 throughout. No evidence of any muscle deficits on examination. No weakness appreciated. NEUROLOGIC: Cranial nerve II through XII grossly intact. No evidence of any neurological deficits on exam. SKIN: Intact. Warm to touch. Good cap refill. PSYCHIATRIC: Normal affect and mood. EXTREMITIES: No edema. Good range of motion throughout. LABORATORY DATA: Lab show CBC none today. Chemistry none ordered today, but the chemistry from yesterday shows a creatinine of 1.39, down trending. Electrolytes are stable. IMPRESSION: 1. Acute kidney injury secondary to acute tubular necrosis with underlying hypotension changes, now improved creatinine. 2. Severe peripheral arterial disease. 3. Cellulitis. 4. Hypotension, resolved. PLAN: At this time, creatinine improved, back at baseline. Electrolytes are stable. No further cardiac workup or no further neurological workup needed. Repeat labs in the morning. Monitor closely. MD DANIE Aguilera/EBER /[id number]
--- NOTE | 2019-05-16 17:29 | Progress Note ---
DATE: SUBJECTIVE: Ms. Cathryn Stratton is doing well, lying in bed comfortably. There is no new complaint. REVIEW OF SYSTEMS: HEENT: Negative. PULMONARY: Negative. CARDIAC: Negative. PHYSICAL EXAMINATION: GENERAL: She is currently alert, oriented, does not seem to be in acute distress. VITAL SIGNS: Stable, currently afebrile. HEENT: She is not icteric. NECK: Supple. CHEST: Clear bilaterally. HEART: S1, S2. No murmur. The leg seems to be much better. There is no redness, no swelling. IMPRESSION: Venous stasis ulcer, cellulitis with Staph aureus Providencia, severe neuropathy, peripheral vascular disease, anemia of chronic disease, acute on chronic kidney disease. Can discontinue IV antibiotic. Continue with local care. Discussed with the patient. Discussed with the medical team. MD KWAME Hidalgo/EBER /[id number]
--- NOTE | 2019-05-16 19:27 | NUR ---
PATIENT IN STABLE CONDITION WITH NO S/S OF RESPIRATORY DISTRESS. PAIN MEDICATION GIVEN RECENTLY. SMITH INTACT AND DRAINING; DIAPER APPLIED. BED ALARM ON. CALL LIGHT IS WITHIN REACH, PATIENT INSTRUCTED TO CALL FOR ASSISTANCE NEEDED. BEDSIDE REPORT GIVEN TO ONCOMING NURSE.
[2019-05-16] MEDS: COLLAGENASE OINTMENT 30 GM TUBE TP SCH (21:00)
[2019-05-17 00:16] VITALS: BP 133/65
[2019-05-17 04:00] VITALS: BP 183/91
[2019-05-17] MEDS: LORAZEPAM INJ 2 MG/ML VIAL IV PRN ×3 (04:35→17:02)
[2019-05-17] MEDS ORDERED: SODIUM CHLORIDE 0.9% 50ML 50 ML ONE (05:55)
[2019-05-17] MEDS: METOPROLOL TARTRATE 25 MG TAB PO SCH ×2 (06:00→16:30)
[2019-05-17] MEDS: CLINDAMYCIN 600MG / 50ML 50 ML IV SCH ×3 (06:00→12:00)
[2019-05-17] MEDS: LEVOTHYROXINE SODIUM 25 MCG TABLET PO SCH (06:30)
[2019-05-17 06:38] LABS: ANION GAP 10.2 mmol/L (8-16); CALCIUM 8.4 mg/dL (8.4-10.2); CREATININE, SERUM 1.03 mg/dL (0.57-1.11); POTASSIUM 3.2 mmol/L (3.5-5.1)
[2019-05-17 06:40] LABS: BASOPHILS # (AUTO) 0.2 (0.0-0.1); BASOPHILS % 2.3 % (0.0-1.0); EOSINOPHILS # (AUTO) 0.2 (0.0-0.4); EOSINOPHILS % 3.5 % (0.0-6.0); HEMATOCRIT 33.3 % (34.2-44.1); HEMOGLOBIN 10.7 g/dL (12.0-16.0); LYMPHOCYTES # (AUTO) 1.1 (1.0-3.2); LYMPHOCYTES % 16.8 % (18.0-39.1); MEAN CORPUSCULAR HEMOGLOBIN 31.8 pg (28-32); MEAN CORPUSCULAR HGB CONC 32.1 g/dL (31-35); MEAN CORPUSCULAR VOLUME 98.8 fL (81-99); MONOCYTES # (AUTO) 0.9 (0.2-0.8); MONOCYTES % 13.3 % (4.4-11.3); NEUTROPHILS # (AUTO) 4.2 (2.1-6.9); NEUTROPHILS % 63.5 % (38.7-80.0); PLATELET COUNT 292 x10e3/uL (140-360); RED BLOOD COUNT 3.37 x10e6/uL (3.6-5.1); RED CELL DISTRIBUTION WIDTH 13.7 % (11.7-14.4)
[2019-05-17 08:00] VITALS: BP 162/80
[2019-05-17 08:13] LABS: EOSINOPHILS % (MANUAL) 1 % (0-7); LYMPHOCYTES % (MANUAL) 16 % (19-48); MONOCYTES % (MANUAL) 13 % (3.4-9.0); NEUTROPHILS % (MANUAL) 69 % (40-74); PLATELET ESTIMATE ADEQUATE; PLATELET MORPHOLOGY COMMENT NORMAL; RBC MORPHOLOGY COMMENT NORMAL
[2019-05-17] MEDS: ASPIRIN 81 MG CHEW TAB PO SCH (08:44)
[2019-05-17] MEDS: MULTIVITAMINS/MINERALS TAB PO SCH (08:44)
[2019-05-17] MEDS: MAGNESIUM OXIDE 400 MG TAB PO SCH ×2 (08:44→16:30)
[2019-05-17] MEDS: ASCORBIC ACID 500 MG TAB PO SCH ×2 (08:45→16:30)
[2019-05-17] MEDS: AMLODIPINE BESYLATE 10 MG TAB PO SCH (08:45)
[2019-05-17] MEDS: PAROXETINE HCL 20 MG TAB PO SCH (08:45)
[2019-05-17] MEDS: COLLAGENASE OINTMENT 30 GM TUBE TP SCH (08:45)
[2019-05-17] MEDS: ZINC SULFATE 220 MG CAP PO SCH ×2 (08:45→16:30)
[2019-05-17] MEDS: OYST-CAL-D 500MG TABLET PO SCH ×2 (08:45→16:30)
[2019-05-17] MEDS: LOPERAMIDE HCL 2 MG CAP PO PRN ×3 (08:49→16:31)
[2019-05-17] MEDS: MORPHINE SULFATE 2 MG/ML SYR 1ML IV PRN (09:03)
[2019-05-17] MEDS: CEFTRIAXONE SOD 2 GM/NS 100 ML 100 ML IV SCH (10:37)
--- NOTE | 2019-05-17 11:27 | Progress Note ---
DATE: 05/17/2019 Cardiology Progress Note SUBJECTIVE: Denies any chest pain or shortness of breath. Pain to wounds improved or better controlled. OBJECTIVE: VITAL SIGNS: Temperature 97.6, heart rate 76, blood pressure 162/80, respiratory rate 17, O2 saturation 97%. GENERAL: In no acute distress, alert. NECK: No JVD. CHEST: Clear to auscultation. CARDIOVASCULAR: Regular rate and rhythm. Normal S1, S2. ABDOMEN: Soft, nontender. EXTREMITIES: Trace edema with wounds covered with dressings. CARDIOVASCULAR MEDICATIONS: Reviewed. On metoprolol tartrate 25 mg every 8 hours, aspirin 81 mg daily, amlodipine 10 mg daily, clindamycin, ceftriaxone and levothyroxine. STUDIES: Reviewed, significant for sodium 142, potassium 3.2, chloride 106, bicarbonate 29, BUN 13, and creatinine improved at 1.03, glucose 93. White blood cell 6.5, hemoglobin 10.7, platelets 292. INR 1.1, AST 20, ALT 13, alkaline phosphatase 105. ASSESSMENT: 1. A 78-year-old woman presents with mixed venous and arterial lower extremity wounds, right more than left with associated overt infection, developed acute renal failure, now improving. 2. Hypertension. 3. History of smoking. RECOMMENDATIONS: I discussed with Chayito proceeding with angiography and possible endovascular revascularization. The patient is agreeable. I called the supervisor cytogenetic laboratory and they stated, currently there is lack of availability for tomorrow as well as Friday, so I have scheduled for afternoon as this was available. Continue rest of cardiovascular medications for now. We will follow closely with you. She will need prehydration and monitoring renal function stability and preparation for angiogram. MD RADHA Stallworth/EBER /[id number]
[2019-05-17 11:29] VITALS: BP 166/81
[2019-05-17] MEDS ORDERED: POTASSIUM CHLORIDE 20 MEQ TAB CR PO ONE (12:20)
--- NOTE | 2019-05-17 12:21 | NUR ---
EDUCATED ABOUT IMM, SIGNED, FILED IN CHART, WITH COPY LEFT WITH FAMILY AT BEDSIDE. PT ACCEPTED TO [facility] TO ROOM [address] JOINER CALL REPORT TO [phone], RTF GIVEN TO NURSE TO COMPLETE TRANSFER WITH [facility].
--- NOTE | 2019-05-17 13:28 | Progress Note ---
DATE: 05/17/2019 Nephrology Progress Note SUBJECTIVE: The patient is doing well today with no complaints. No overnight events. PHYSICAL EXAMINATION: VITAL SIGNS: She is afebrile. Pulse is 79, respiratory rate is 20, blood pressure is 166/81, pulse ox is 95% on room air. GENERAL: Not in acute distress. Alert and oriented x3. Cooperative on examination. HEENT: Head; normocephalic and atraumatic. Eyes; pupils are equal, round, and reactive to light bilaterally. Extraocular movements intact bilaterally. Throat; no evidence of erythema or exudates in the posterior pharynx. Has poor dentition. NECK: Supple. Good range of motion. PULMONARY: Clear to auscultation bilaterally. No wheezing, no rales, no rhonchi, and no crackles appreciated. CARDIOVASCULAR: Positive S1 and S2. No murmurs, rubs, or gallops appreciated. ABDOMEN: Soft, nondistended, and nontender to palpation. Bowel sounds present. MUSCULOSKELETAL: Strength is 5/5 throughout. No evidence of any muscle deficits on examination. No weakness appreciated. NEUROLOGIC: Cranial nerves II through XII grossly intact. No evidence of any neurological deficits on exam. SKIN: Intact. Warm to touch. Good cap refill. PSYCHIATRIC: Normal affect and mood. EXTREMITIES: No edema. Good range of motion throughout. LABORATORY DATA: Lab findings show white count 6.5, hemoglobin 10.7, hematocrit is 33, platelets of 292. Chemistry; sodium 142, potassium is 3.2, chloride 106, bicarbonate 29, anion gap of 10, creatinine down trended to 1 which is back to normal. Glucose 93, calcium 8.4. IMPRESSION: 1. Acute kidney injury secondary to acute tubular necrosis with underlying hypotension, now improved back to normal baseline. 2. Severe peripheral arterial disease. 3. Cellulitis. 4. Hypotension. PLAN: At this time creatinine is back to normal. Replace potassium 40 mEq p.o. x1. Repeat labs in the morning. We will continue to follow with the consultants. If patient needs to undergo an angiogram, she can but we will do aggressive IV fluid hydration after the procedure and after the procedure to avoid contrast induced nephropathy. Otherwise, we will continue same plan of care. Monitor closely. MD DANIE Aguilera/RUFUSL /[id number]
[2019-05-17 15:52] VITALS: BP 157/70
--- NOTE | 2019-05-17 18:41 | NUR ---
Pt discharged to SNF at this time. Pt and family were instructed to follow up Dr. Henderson and Dr. Martins. Pt and and family verbalized understanding of follow up instructions.
--- NOTE | 2019-05-18 18:16 | Discharge Summary ---
ADMISSION DIAGNOSES: Bilateral lower extremity wounds, hypertension, hypothyroidism, depression, underweight/severe protein calorie malnutrition. DISCHARGE DIAGNOSES: Bilateral lower extremity wounds, hypertension, hypothyroidism, depression, underweight/severe protein calorie malnutrition, bilateral lower extremity arterial disease. Rule out deep venous thrombosis. Rule out Clostridium difficile, Staphylococcus aureus and Providencia stuartii of the wound as well as urinary retention. HISTORY: The patient has a history of ITP, hypertension, hypothyroidism, and depression. SURGICAL HISTORY: Appendectomy, hysterectomy, right total knee replacement, bilateral hand surgery, and right hip surgery. FAMILY HISTORY: The patient's dad had diabetes. SOCIAL HISTORY: Occasional alcohol use. HOSPITAL COURSE: A 78-year-old female, admits with bilateral lower extremity wounds since December 2018. She was following Dr. Liu, but is unhappy with her service. She noticed the maggots, so she came to the ER. She has chronic sharp bilateral lower extremity pain. On admission, she was started on vancomycin and Zosyn. ID, Wound Care, and Pain Management were all consulted. Arterial Doppler showed arterial disease without significant stenosis. Preliminary report venous Doppler was negative. Chest x-ray was negative. Repeat chest x-ray on 05/08, showed new bilateral lower lobe hazy opacities, right greater than left, could be pneumonia or effusions. The patient remained afebrile. CT of the chest showed right pleural effusion with atelectasis, emphysema, bilateral pleural effusion, atherosclerosis. Cardiology was consulted due to the arterial findings and they plan to do an angiogram then the patient has had acute kidney injury and her GFR dropped to 23, so Nephrology was consulted. Renal ultrasound was done, which was negative. The patient also had a skin biopsy per Wound Care MD, the biopsy was negative and culture was negative. Left wound culture showed Providencia stuartii, right leg culture showed Staphylococcus aureus. Clostridium difficile was negative, although the patient complained of diarrhea due to the antibiotics. The patient will discharge to [facility] for wound care. Per Wound Care MD, she will resume Santyl and Hydrogel to wound bed, covered with nonadhesive 4 x 4 and Kerlix dressing changes. Her antibiotics were stopped per ID recommendation. The patient understands discharge instructions and agrees to plan. She will follow up with Cardiology as soon as possible for the angiogram. Vital signs are stable. The patient is afebrile. Dictated by Vidhya Gramajo, PERISHABLE FREIGHT INSPECTOR MD ROOSEVELT Mcconnell/EBER /[id number]
== END 2019-05-17 18:41 | disposition home or self-care (01) | DRG 299 ==
LOC: ER 17:21 → ERHOLD 21:17 → MED/SURG3 05-07 16:47
PROVIDERS: ADMIT Internal Medicine; ATTEND Internal Medicine
PROC: 0HBLXZX Excision of Left Lower Leg Skin, External Approach, Diagnostic (ICD-10-PCS; principal; 2019-05-11)
DX: E11.51 Type 2 diabetes mellitus with diabetic peripheral angiopathy without gangrene (principal); E43 Unspecified severe protein-calorie malnutrition; N17.0 Acute kidney failure with tubular necrosis; L03.116 Cellulitis of left lower limb; N39.0 Urinary tract infection, site not specified; E87.1 Hypo-osmolality and hyponatremia; N17.9 Acute kidney failure, unspecified; L97.829 Non-pressure chronic ulcer of other part of left lower leg with unspecified severity; L97.819 Non-pressure chronic ulcer of other part of right lower leg with unspecified severity; E87.2 Acidosis; I10 Essential (primary) hypertension; E03.9 Hypothyroidism, unspecified; F32.9 Major depressive disorder, single episode, unspecified; Z68.22 Body mass index [BMI] 22.0-22.9, adult; B95.61 Methicillin susceptible Staphylococcus aureus infection as the cause of diseases classified elsewhere; B96.89 Other specified bacterial agents as the cause of diseases classified elsewhere; Z96.651 Presence of right artificial knee joint; Z79.4 Long term (current) use of insulin; I70.248 Atherosclerosis of native arteries of left leg with ulceration of other part of lower leg; I70.238 Atherosclerosis of native arteries of right leg with ulceration of other part of lower leg; I87.2 Venous insufficiency (chronic) (peripheral); F17.200 Nicotine dependence, unspecified, uncomplicated; D63.8 Anemia in other chronic diseases classified elsewhere
CPT/HCPCS: 36415; 51701; 71045; 71250; 76770; 80048; 80053; 80202; 81001; 81015; 82570; 83036; 83605; 83735; 83880; 84134; 84156; 84300; 84439; 84443; 85025; 85610; 85730; 87040; 87070; 87071; 87086; 87186; 87205; 87493; 88305; 93005; 93925; 93970; 96361; 96376; 97139; 99285; J0360; J0692; J0696; J1170; J1644; J1940; J2001; J2060; J2250; J2270; J2405; J2543; J3010; J3370; J7030; Q0162; Q9967

== ENCOUNTER 2022-05-16 18:34 | Inpatient (IN) | payer MEDICARE ==
[~2022-05-16] VITALS: Ht 157.5 cm; Wt 47.6 kg
[~2022-05-16 18:34] MED LIST changes: +ASPIR 8181 MG PO; +CLONIDINE HCL0.1 MG PO; +LEVOTHYROXINE25 MCG PO; +LISINOPRIL40 MG; +NICOTINE PATCH1 EAC2 TOP; +PAROXETINE HCL20 MG PO; +TYLENOL # 31 EA PO
[2022-05-16] MEDS ORDERED: SODIUM CHLORIDE FLUSH 10 ML SYR INJ PRN (19:00)
[2022-05-16] MEDS ORDERED: ONDANSETRON HCL INJ 2MG/ML 2ML 2 MG/ML VIAL IV PRN (19:00)
[2022-05-16] MEDS ORDERED: CLONAZEPAM 0.5 MG TAB PO PRN (19:15)
[2022-05-16 21:00] VITALS: BP 117/60
[2022-05-16] MEDS ORDERED: ALENDRONATE SOD70 MG PO (21:17)
[2022-05-16] MEDS ORDERED: AMLODIPINE BESYL5 MG PO (21:17)
[2022-05-16] MEDS ORDERED: ATENOLOL100 MG PO (21:17)
[2022-05-16] MEDS ORDERED: HYDRALAZINE HCL25 MG PO (21:17)
[2022-05-16] MEDS ORDERED: REMERON15 MG PO (21:17)
[2022-05-16] MEDS ORDERED: ACETAMINOPHEN 325 MG TAB PO PRN (22:15)
[2022-05-16] MEDS: ATENOLOL 100 MG TAB PO SCH (22:51)
[2022-05-16] MEDS: MIRTAZAPINE 15 MG TAB PO SCH (22:51)
[2022-05-16] MEDS ORDERED: SODIUM CHLORIDE 0.9% 250ML 250 ML ONE (23:27)
[2022-05-17] VITALS (8 sets, daily range): BP systolic 103–116; BP diastolic 47–63
[2022-05-17] MEDS ORDERED: HYDRALAZINE HCL 25 MG TAB PO PRN (05:45)
[2022-05-17 06:25] LABS: ANION GAP 11.4 mmol/L (8-16); CREATININE, SERUM 0.9 mg/dL (0.57-1.11); POTASSIUM 3.4 mmol/L (3.5-5.1)
[2022-05-17] MEDS: AMLODIPINE BESYLATE 5 MG TAB PO SCH (08:36)
[2022-05-17] MEDS: LEVOTHYROXINE SODIUM 50 MCG TAB PO SCH (08:36)
[2022-05-17 09:46] LABS: BASOPHILS # (AUTO) 0.1 (0.0-0.1); BASOPHILS % 2.7 % (0.0-1.0); EOSINOPHILS # (AUTO) 0.1 (0.0-0.4); EOSINOPHILS % 3.4 % (0.0-6.0); HEMATOCRIT 31.5 % (34.2-44.1); HEMOGLOBIN 10.5 g/dL (12.0-16.0); LYMPHOCYTES # (AUTO) 0.8 (1.0-3.2); MEAN CORPUSCULAR HGB CONC 33.3 g/dL (31-35); MEAN CORPUSCULAR VOLUME 101.9 fL (81-99); MONOCYTES # (AUTO) 0.5 (0.2-0.8); MONOCYTES % 16.6 % (4.4-11.3); NEUTROPHILS # (AUTO) 1.5 (2.1-6.9); NEUTROPHILS % 50.6 % (38.7-80.0); RED BLOOD COUNT 3.09 x10e6/uL (3.6-5.1)
[2022-05-17 10:42] LABS: PLATELET COUNT 8 x10e3/uL (140-360)
[2022-05-17] MEDS ORDERED: SODIUM CHLORIDE 0.9% 250ML 250 ML ONE ×3 (15:34→20:37)
[2022-05-17] MEDS: IMMU GLOBULIN,GAMMA (IGG) 200 ML IV SCH (17:07)
[2022-05-17] MEDS: MIRTAZAPINE 15 MG TAB PO SCH (20:34)
[2022-05-17] MEDS ORDERED: DOCUSATE SODIUM 100 MG CAP PO PRN (20:45)
[2022-05-17] MEDS: ATENOLOL 100 MG TAB PO SCH (20:56)
[2022-05-17] MEDS ORDERED: SENNOSIDES 8.6 MG TAB PO SCH ×2 (21:00)
[2022-05-17] MEDS: SENNOSIDES 8.6 MG TAB PO SCH (21:08)
[2022-05-18] VITALS (8 sets, daily range): BP systolic 114–139; BP diastolic 56–80
[2022-05-18] MEDS: LEVOTHYROXINE SODIUM 50 MCG TAB PO SCH (08:00)
[2022-05-18 08:36] LABS: BASOPHILS % 0.2 % (0.0-1.0); HEMATOCRIT 31.4 % (34.2-44.1); HEMOGLOBIN 10.6 g/dL (12.0-16.0); LYMPHOCYTES # (AUTO) 0.7 (1.0-3.2); LYMPHOCYTES % 12.1 % (18.0-39.1); MEAN CORPUSCULAR HEMOGLOBIN 34.1 pg (28-32); MEAN CORPUSCULAR HGB CONC 33.8 g/dL (31-35); MONOCYTES # (AUTO) 0.1 (0.2-0.8); MONOCYTES % 1.4 % (4.4-11.3); NEUTROPHILS # (AUTO) 5.1 (2.1-6.9); NEUTROPHILS % 85.6 % (38.7-80.0); RED BLOOD COUNT 3.11 x10e6/uL (3.6-5.1); RED CELL DISTRIBUTION WIDTH 14.9 % (11.7-14.4)
[2022-05-18 08:49] LABS: PLATELET COUNT 12 x10e3/uL (140-360)
[2022-05-18 08:58] LABS: ANION GAP 12.7 mmol/L (8-16); CALCIUM 8.2 mg/dL (8.4-10.2); CREATININE, SERUM 0.97 mg/dL (0.57-1.11); POTASSIUM 3.7 mmol/L (3.5-5.1)
[2022-05-18] MEDS: AMLODIPINE BESYLATE 5 MG TAB PO SCH (09:00)
[2022-05-18] MEDS: MUPIROCIN 2% OINT 22 GM TUBE TOP SCH (09:00)
[2022-05-18] MEDS ORDERED: IMMU GLOBULIN,GAMMA (IGG) 200 ML IV SCH (09:00)
[2022-05-18] MEDS: SENNOSIDES 8.6 MG TAB PO SCH ×2 (09:00→17:00)
[2022-05-18] MEDS ORDERED: DEXAMETHASONE SOD PHOS INJ 4 MG/ML SDV IV SCH (09:00)
[2022-05-18] MEDS: IMMU GLOBULIN,GAMMA (IGG) 200 ML IV SCH (15:25)
[2022-05-18] MEDS: MIRTAZAPINE 15 MG TAB PO SCH (21:00)
[2022-05-18] MEDS: ATENOLOL 100 MG TAB PO SCH (21:00)
[2022-05-19] VITALS (7 sets, daily range): BP systolic 106–136; BP diastolic 49–83
[2022-05-19] MEDS: LEVOTHYROXINE SODIUM 50 MCG TAB PO SCH (08:07)
[2022-05-19] MEDS: SENNOSIDES 8.6 MG TAB PO SCH ×2 (08:08→17:00)
[2022-05-19] MEDS: MUPIROCIN 2% OINT 22 GM TUBE TOP SCH (08:08)
[2022-05-19] MEDS: AMLODIPINE BESYLATE 5 MG TAB PO SCH (08:08)
[2022-05-19 09:13] LABS: BASOPHILS % 0.1 % (0.0-1.0); HEMATOCRIT 32.7 % (34.2-44.1); HEMOGLOBIN 10.5 g/dL (12.0-16.0); LYMPHOCYTES # (AUTO) 0.7 (1.0-3.2); LYMPHOCYTES % 6.8 % (18.0-39.1); MEAN CORPUSCULAR HEMOGLOBIN 34.2 pg (28-32); MEAN CORPUSCULAR HGB CONC 32.1 g/dL (31-35); MEAN CORPUSCULAR VOLUME 106.5 fL (81-99); MONOCYTES # (AUTO) 0.2 (0.2-0.8); MONOCYTES % 1.9 % (4.4-11.3); NEUTROPHILS # (AUTO) 9.3 (2.1-6.9); NEUTROPHILS % 90.4 % (38.7-80.0); RED BLOOD COUNT 3.07 x10e6/uL (3.6-5.1); RED CELL DISTRIBUTION WIDTH 15.5 % (11.7-14.4)
[2022-05-19 09:16] LABS: PLATELET COUNT 38 x10e3/uL (140-360)
[2022-05-19] MEDS ORDERED: BISACODYL 10 MG SUPP PR PRN (10:00)
[2022-05-19] MEDS: IMMU GLOBULIN,GAMMA (IGG) 200 ML IV SCH (16:00)
[2022-05-19] MEDS: DOCUSATE SODIUM 100 MG CAP PO SCH (17:00)
[2022-05-19] MEDS: MIRTAZAPINE 15 MG TAB PO SCH (21:07)
[2022-05-19] MEDS: ATENOLOL 100 MG TAB PO SCH (21:08)
[2022-05-20] VITALS: BP 113/77
[2022-05-20 04:00] VITALS: BP 108/50
[2022-05-20 05:47] LABS: BASOPHILS % 0.1 % (0.0-1.0); HEMATOCRIT 29.7 % (34.2-44.1); LYMPHOCYTES # (AUTO) 0.5 (1.0-3.2); LYMPHOCYTES % 6.2 % (18.0-39.1); MEAN CORPUSCULAR HEMOGLOBIN 34.4 pg (28-32); MEAN CORPUSCULAR HGB CONC 33.7 g/dL (31-35); MEAN CORPUSCULAR VOLUME 102.1 fL (81-99); MONOCYTES # (AUTO) 0.2 (0.2-0.8); MONOCYTES % 2.3 % (4.4-11.3); NEUTROPHILS # (AUTO) 7.7 (2.1-6.9); NEUTROPHILS % 90.2 % (38.7-80.0); PLATELET COUNT 61 x10e3/uL (140-360); RED BLOOD COUNT 2.91 x10e6/uL (3.6-5.1); RED CELL DISTRIBUTION WIDTH 15.6 % (11.7-14.4)
[2022-05-20 05:58] LABS: ANION GAP 9.6 mmol/L (8-16); CALCIUM 7.8 mg/dL (8.4-10.2); CREATININE, SERUM 0.75 mg/dL (0.57-1.11); POTASSIUM 3.6 mmol/L (3.5-5.1)
[2022-05-20 08:00] VITALS: BP 108/50
[2022-05-20] MEDS: LEVOTHYROXINE SODIUM 50 MCG TAB PO SCH ×2 (08:00→08:34)
[2022-05-20 08:03] VITALS: BP 125/58
[2022-05-20] MEDS: DOCUSATE SODIUM 100 MG CAP PO SCH (08:17)
[2022-05-20] MEDS: SENNOSIDES 8.6 MG TAB PO SCH (08:17)
[2022-05-20] MEDS: AMLODIPINE BESYLATE 5 MG TAB PO SCH (08:19)
[2022-05-20] MEDS: MUPIROCIN 2% OINT 22 GM TUBE TOP SCH (08:34)
== END 2022-05-20 08:50 | disposition home or self-care (01) | DRG 813 ==
LOC: ER 18:46 → ERHOLD 19:02 → MED/SURG2 20:20
PROVIDERS: ADMIT Internal Medicine; ATTEND Internal Medicine
PROC: 30233R1 Transfusion of Nonautologous Platelets into Peripheral Vein, Percutaneous Approach (ICD-10-PCS; principal; 2022-05-16)
PROC: 8E0ZXY6 Isolation (ICD-10-PCS; 2022-05-16)
DX: D69.3 Immune thrombocytopenic purpura (principal); U07.1 COVID-19; E44.1 Mild protein-calorie malnutrition; Z68.1 Body mass index [BMI] 19.9 or less, adult; S81.802D Unspecified open wound, left lower leg, subsequent encounter; X58.XXXD Exposure to other specified factors, subsequent encounter; E03.9 Hypothyroidism, unspecified; I10 Essential (primary) hypertension; F17.210 Nicotine dependence, cigarettes, uncomplicated; M06.9 Rheumatoid arthritis, unspecified; F39 Unspecified mood [affective] disorder; D69.59 Other secondary thrombocytopenia
CPT/HCPCS: 0223U; 36415; 80048; 85025; 86900; 93005; 94799; 99251; 99283; J1100; J1561; J2405; J7050; P9034

== ENCOUNTER 2022-07-17 00:13 | Emergency (ER) | payer MEDICARE, OTHER ==
[~2022-07-17] VITALS: Ht 157.5 cm; Wt 47.6 kg
[~2022-07-17 00:13] MED LIST changes: +ALENDRONATE SOD70 MG PO; +AMLODIPINE BESYL5 MG PO; +ATENOLOL100 MG PO; +REMERON15 MG PO
[2022-07-17] MEDS ORDERED: HYDROMORPHONE 1MG/1ML INJ IV STA ×2 (01:21→04:08)
[2022-07-17] MEDS ORDERED: HYDROMORPHONE 1MG/1ML INJ ONE (01:25)
[2022-07-17] MEDS ORDERED: ONDANSETRON HCL INJ 2MG/ML 2ML 2 MG/ML VIAL ONE (01:26)
[2022-07-17 01:59] LABS: BASOPHILS % 0.1 % (0.0-1.0); HEMATOCRIT 47.1 % (34.2-44.1); HEMOGLOBIN 15.2 g/dL (12.0-16.0); LYMPHOCYTES # (AUTO) 1.1 (1.0-3.2); LYMPHOCYTES % 10.1 % (18.0-39.1); MEAN CORPUSCULAR HEMOGLOBIN 33.2 pg (28-32); MEAN CORPUSCULAR HGB CONC 32.3 g/dL (31-35); MEAN CORPUSCULAR VOLUME 102.8 fL (81-99); MONOCYTES # (AUTO) 0.3 (0.2-0.8); MONOCYTES % 2.9 % (4.4-11.3); NEUTROPHILS # (AUTO) 9.5 (2.1-6.9); NEUTROPHILS % 85.6 % (38.7-80.0); PLATELET COUNT 211 x10e3/uL (140-360); RED BLOOD COUNT 4.58 x10e6/uL (3.6-5.1); RED CELL DISTRIBUTION WIDTH 12.8 % (11.7-14.4)
[2022-07-17 02:03] LABS: INR 0.79; PROTHROMBIN TIME 11.7 seconds (11.9-14.5)
[2022-07-17] MEDS ORDERED: ONDANSETRON HCL INJ 2MG/ML 2ML 2 MG/ML VIAL IV STA ×2 (02:06→04:08)
[2022-07-17 02:13] LABS: ALBUMIN 3.1 g/dL (3.5-5.0); ALBUMIN/GLOBULIN RATIO 0.6 (0.8-2.0); ANION GAP 17.6 mmol/L (8-16); CALCIUM 8.2 mg/dL (8.4-10.2); CREATININE, SERUM 0.88 mg/dL (0.57-1.11); POTASSIUM 4.6 mmol/L (3.5-5.1)
[2022-07-17 04:00] VITALS: BP 144/100
== END 2022-07-17 04:08 | disposition other institution (70) ==
LOC: ER 00:25
DX: S72.111A Displaced fracture of greater trochanter of right femur, initial encounter for closed fracture (principal); W01.0XXA Fall on same level from slipping, tripping and stumbling without subsequent striking against object, initial encounter; Y93.01 Activity, walking, marching and hiking; Y92.89 Other specified places as the place of occurrence of the external cause; I10 Essential (primary) hypertension; E03.9 Hypothyroidism, unspecified; D69.3 Immune thrombocytopenic purpura; Z96.651 Presence of right artificial knee joint; R94.31 Abnormal electrocardiogram [ECG] [EKG]
CPT/HCPCS: 36415; 71045; 73503; 80053; 85025; 85610; 85730; 93005; 99284; J1170; J2405